=== PATIENT | male | born 1965 | race Two or more races ===

== ENCOUNTER 2020-05-04 07:35 | Outpatient (REF) | payer OTHER, SELFPAY ==
--- NOTE | 2020-05-04 08:11 | XR_ITS ---
EXAMINATION: XR shoulder LT min 2V, XR shoulder RT min 2V CLINICAL INFORMATION: Bilateral shoulder pain. COMPARISON: None. TECHNIQUE: Left shoulder 4 views. Right shoulder 4 views. FINDINGS: LEFT SHOULDER: No bony abnormalities evident. Alignment of the glenohumeral and acromioclavicular joints is normal. No soft tissue calcification. No abnormality is demonstrated in the upper left chest. RIGHT SHOULDER: There are mild degenerative changes at the right acromioclavicular joint. No other abnormality. Glenohumeral alignment is normal. No soft tissue calcification. XR/XR shoulder RT min 2V IMPRESSION: 1. Mild degenerative changes right acromioclavicular joint. Otherwise unremarkable appearance of the right shoulder. 2. Unremarkable examination of the left shoulder.
--- NOTE | 2020-05-04 08:11 | XR_ITS ---
EXAMINATION: XR shoulder LT min 2V, XR shoulder RT min 2V CLINICAL INFORMATION: Bilateral shoulder pain. COMPARISON: None. TECHNIQUE: Left shoulder 4 views. Right shoulder 4 views. FINDINGS: LEFT SHOULDER: No bony abnormalities evident. Alignment of the glenohumeral and acromioclavicular joints is normal. No soft tissue calcification. No abnormality is demonstrated in the upper left chest. RIGHT SHOULDER: There are mild degenerative changes at the right acromioclavicular joint. No other abnormality. Glenohumeral alignment is normal. No soft tissue calcification. XR/XR shoulder LT min 2V IMPRESSION: 1. Mild degenerative changes right acromioclavicular joint. Otherwise unremarkable appearance of the right shoulder. 2. Unremarkable examination of the left shoulder.
[2020-05-04 08:56] LABS: Alanine Aminotransferase 21 U/L (0-40); Albumin Level 4.4 g/dL (3.5-5.0); Alkaline Phosphatase 68 U/L (39-117); Anion Gap 12 (12-20); Aspartate Amino Transferase 20 U/L (5-37); Bilirubin Total 0.6 mg/dL (0.0-1.0); Blood Urea Nitrogen 14 mg/dL (9-16); Calcium 9.2 mg/dL (8.4-10.2); Carbon Dioxide 28 mmol/L (22-29); Chloride 102 mmol/L (96-108); Cholesterol 254 mg/dL; Estimated Glomerular Filt Rate > 60; Glucose Fasting 94 mg/dL (60-99); HDL Cholesterol 51 mg/dL; LDL Cholesterol Calculated 178 mg/dl; Potassium 4.7 mmol/l (3.3-5.1); Sodium 137 mmol/L (135-145); Triglycerides 127 mg/dL
[2020-05-08 14:38] LABS: Vitamin D 25-OH, D2 <4 ng/mL; Vitamin D 25-OH, D3 16 ng/mL; Vitamin D 25-OH, Total 16 ng/mL (30-100)
== END 2020-05-04 07:36 | disposition home or self-care (01) ==
LOC: HO.LAB 07:35
PROVIDERS: PCP Internal Medicine; Visit Provider Internal Medicine
DX: E55.9 Vitamin D deficiency, unspecified (principal); E78.00 Pure hypercholesterolemia, unspecified; M25.512 Pain in left shoulder; M25.511 Pain in right shoulder
CPT/HCPCS: 73030; 80053; 80061; 82306

== ENCOUNTER 2022-09-16 02:36 | Emergency (ER) | payer OTHER, SELFPAY ==
--- NOTE | ~2022-09-16 | XR_ITS ---
EXAMINATION: XR HIP, RIGHT CLINICAL INFORMATION: Tenderness to palpation right anterior hip COMPARISON: 01/03/2016 TECHNIQUE: Two views of the right hip. FINDINGS: Osseous alignment is anatomic. There is mild to moderate joint space narrowing at the right hip. Osteophyte formation noted along the lateral acetabulum. No acute fracture is seen. Enthesophytes are present at the greater trochanter of the femur. XR/XR hip RT min 2V IMPRESSION: No acute findings identified. Chronic appearing/degenerative changes as noted above.
[2022-09-16 02:44] VITALS: BP 132/90; BP 136/82; PULSE 79; PULSE 92; RESP 18; TEMP 37; O2SAT 97; O2SAT 99; BMI 26.9
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
[2022-09-16] MEDS: Ketorolac Tromethamine 15 MG/ML VIAL IM (04:57)
[2022-09-16 05:04] VITALS: BP 126/73; PULSE 70; RESP 24; TEMP 36.8; O2SAT 96
--- NOTE | 2022-09-16 05:05 | PC.NURSE ---
this rn attempted to medicate pt according to cristian. pt refused tylenol and ibuprofen stating it will not help 03/09 pain. pt requested injection this rn made dr ulloa aware of pt refusal of medication and request for injection pt medicated according to cristian
--- NOTE | 2022-09-16 05:06 | PC.NURSE ---
this rn utilized blindstitch lapel padder for discharge. pt utilized wheelchair at discharge. skin pwd. vss. pt son at bedside for discharge. pt provided with discharge packet. pt verbalized understanding discharge plan
== END 2022-09-16 05:08 | disposition home or self-care (01) ==
PROVIDERS: Emergency Provider Student in an Organized Health Care Education/Training Program; PCP Internal Medicine
DX: M25.551 Pain in right hip (principal); Z79.899 Other long term (current) drug therapy
CPT/HCPCS: 73502; 96372; 99284; J1885

== ENCOUNTER 2022-11-06 07:53 | Outpatient (REF) | payer OTHER, SELFPAY ==
[2022-11-06 08:19] LABS: MANUAL DIFF FLAG NO
[2022-11-06 08:47] LABS: Basophils Percent Auto 0.5 % (0-2); Eosinophils Absolute Auto 0.2 X10*3/uL (0.0-0.4); Eosinophils Percent Auto 2.8 % (0-4); Hematocrit 43.8 % (42.0-52.0); Hemoglobin 14.5 g/dl (14.0-18.0); Imm Gran Abs Auto 0.01 X10*3/uL (0.00-0.03); Imm Gran Pct Auto 0.2 % (0.0-0.4); Lymphocytes Absolute Auto 2.8 X10*3/uL (1.2-4.9); Lymphocytes Percent Auto 44.7 % (20-40); Mean Corpuscular HGB Conc 33.1 g/dl (31.0-36.0); Mean Corpuscular Hemoglobin 30.1 pg (27.0-33.0); Mean Corpuscular Volume 91.1 fL (80.0-98.0); Mean Platelet Volume 11.1 fL (9.4-12.4); Monocytes Absolute Auto 0.5 X10*3/uL (0.1-1.2); Monocytes Percent Auto 8.6 % (2-11); Neutrophils Absolute Auto 2.7 x10*3/uL (2.0-8.3); Neutrophils Percent Auto 43.2 % (45-73); Platelet Count 261 X10*3/uL (160-400); Red Blood Count 4.81 X10*6/uL (4.60-5.80); Red Cell Distribution Width 12.9 % (11.0-16.0); White Blood Count 6.2 X10*3/uL (4.8-10.8)
[2022-11-06 09:24] LABS: Alanine Aminotransferase 29 U/L (0-40); Albumin Level 4.4 g/dL (3.5-5.0); Alkaline Phosphatase 74 U/L (39-117); Anion Gap 14 (12-20); Aspartate Amino Transferase 21 U/L (5-37); Bilirubin Total 0.6 mg/dL (0.0-1.0); Blood Urea Nitrogen 12 mg/dL (9-16); Calcium 10.2 mg/dL (8.4-10.2); Carbon Dioxide 30 mmol/L (22-29); Chloride 102 mmol/L (96-108); Cholesterol 286 mg/dL; Estimated Glomerular Filt Rate > 60; Glucose Fasting 98 mg/dL (60-99); HDL Cholesterol 64 mg/dL; LDL Cholesterol Calculated 188 mg/dl; Potassium 5.4 mmol/L (3.3-5.1); Sodium 141 mmol/L (135-145); Total Protein 7.3 g/dL (6.5-8.0); Triglycerides 173 mg/dL
[2022-11-06 09:58] LABS: Folate 18.3 ng/mL (> or = 4.0); Prostate Specific Antigen 3.86 ng/mL (<0.05-4.0); TSH reflex Free T4 2.65 uIU/mL (0.32-4.0); Vitamin B12 908 pg/mL (200-900); Vitamin D 25-OH Total 39.4 ng/mL (>30)
== END 2022-11-06 07:54 | disposition home or self-care (01) ==
LOC: HO.LAB 07:53
PROVIDERS: PCP Nurse Practitioner Family; Visit Provider Nurse Practitioner Family
DX: E78.00 Pure hypercholesterolemia, unspecified (principal); F41.8 Other specified anxiety disorders; Z12.5 Encounter for screening for malignant neoplasm of prostate
CPT/HCPCS: 36415; 80053; 80061; 82306; 82607; 82746; 84153; 84443; 85025

== ENCOUNTER 2023-06-15 12:56 | Outpatient (REF) | payer OTHER, SELFPAY ==
[2023-06-15 13:47] LABS: Amphetamine Screen Urine Not Detected (Not Detect); Barbiturates, Urine Not Detected (Not Detect); Benzodiazepines Screen Urine Not Detected (Not Detect); Cannabinoid Screen Urine Not Detected (Not Detect); Cocaine Screen Urine Not Detected (Not Detect); Fentanyl, urine Not Detected (Not Detect); Opiate Screen Urine Not Detected (Not Detect); Phencyclidine Screen Urine Not Detected (Not Detect)
== END 2023-06-15 12:57 | disposition home or self-care (01) ==
LOC: HO.LAB 12:56
PROVIDERS: PCP Internal Medicine; Visit Provider Internal Medicine
DX: Z02.83 Encounter for blood-alcohol and blood-drug test (principal)
CPT/HCPCS: 80307

== ENCOUNTER 2023-07-07 12:29 | Outpatient (AMB) | payer OTHER, SELFPAY ==
[2023-07-07 12:34] VITALS: BP 116/70; PULSE 81; TEMP 37.1; O2SAT 98; BMI 24.6
--- NOTE | 2023-07-07 12:34 | AM.OFFWIN_ITS ---
Intake Vital Signs 07/07/23 12:34 Height 5 ft 7 in Weight 157 lb BMI 24.6 BP 116/70 Blood Pressure Location Lt brachial Position Sitting Pulse 81 Pulse Source Pulse Oximeter Temp 98.8 F Temp Source Temporal Artery Scan Pulse Oximetry (%) 98 Oxygen Delivery Method Room Air Intake Visit Reasons: EST/abdominal pain (lobby) Intake Note: pt is here today for abd pain started 3 days ago Patient Tobacco Use Status: Never used Tobacco Allergies atorvastatin [ATORVASTATIN] Allergy (Intermediate, Verified 07/07/23 12:34) HIVES, rash, hives Do you need a note to return to daycare/school/sports/work: No HPI HPI Comments History of Present Illness Details Patient is a 57yo M with hx of constipation who presents for abdominal pain/rectal bleeding 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 He has had intermittent abdominal pain for a few months Last colonoscopy clean but thinks hes due (usually q5 years per pt) States constant 10/10 abdominal pain x 3 days No fever or chills Sharp lower abdomen Some rectal pain and rectal bleeding without black stool States last BM this morning and painful, unsure about hemorrhoids States usually has BM every 2-3 days No nausea or vomiting Denies CP or SOB No medicine tried for symptoms Some urine hesitancy without dysuria or frequency PFSH Medical History Hypovitaminosis D Left shoulder pain Pure hypercholesterolemia Rash and nonspecific skin eruption Right shoulder pain Urticaria Surgical History No pertinent past surgical history Family History Father Prostate cancer Mother FH: uterine cancer Maternal Grandmother Cancer Maternal Grandfather Cancer Paternal Grandmother Cancer Paternal Grandfather Cancer Social History Housing: House Alcohol intake: never Patient Tobacco Use Status: Never used Tobacco e-Cigarette/Vaping Use: Never Used Second Hand Smoke Exposure: No service: No Current occupational status: employed Cognitive needs: No Hearing needs: No Vision needs: No Review of Systems Const Denies body aches, Denies chills and Denies fever(s) Card Denies chest pain and Denies dyspnea Resp Denies cough and Denies dyspnea GI Reports abdominal pain, Denies melena, Reports hematochezia, Reports constipation, Denies diarrhea, Denies nausea and Denies vomiting Denies dysuria, Denies urinary frequency and Reports urinary hesitancy Physical Exam Vital Signs: Last Vital Signs Temp 98.8 F 07/07/23 12:34 Pulse 81 07/07/23 12:34 BP 116/70 07/07/23 12:34 Pulse Ox 98 07/07/23 12:34 Oxygen Delivery Method Room Air 07/07/23 12:34 BMI result Body Mass Index 24.6 General: Non-toxic, NAD. Speaking full sentences. Skin: Warm dry throughout. No abdominal striae or ecchymosis Eye: EOMI Respiratory: CTA bilaterally. No wheezes, rales or rhonchi Cardiac: RRR. No murmur Abdominal: BS present x 4. + diffuse periumbillical/ lower abdominal tenderness to palpation (R>L). No guarding. No pusatile mass noted. MSK: Full ROM extremities. Neurology: A/O. No aphasia or facial droop. Gait without abnormality Psych: Good mood and affect Assessment & Plan Assessment & Plan (1) Abdominal pain: Code(s): R10.9 - Unspecified abdominal pain Qualifiers: Abdominal location: periumbilical Qualified Code(s): R10.33 - Periumbilical pain Plan: Pt seen and evaluated Vitals stable + 10/10 abdominal pain Offered urinalysis but concern for 3 days of 10/10 pain and need for imaging Expect given to ED [place] He is driving and feels comfortable enough going down; there was no guarding on examination All questions answered with railroad police officer Coding Level of Care Code Est Pt Level 4 (83576) Diagnoses Periumbilical abdominal pain R10.33 Abdominal location: periumbilical
== END 2023-07-07 13:09 | disposition home or self-care (01) ==
PROVIDERS: PCP Internal Medicine; Visit Provider Physician Assistant
DX: R10.33 Periumbilical pain (principal)
CPT/HCPCS: 99214

== ENCOUNTER 2023-07-07 13:30 | Emergency (ER) | payer OTHER, SELFPAY ==
--- NOTE | ~2023-07-07 | CT_ITS ---
EXAMINATION: CT ABDOMEN AND PELVIS WITHOUT CONTRAST CLINICAL INFORMATION: Bright read blood per rectum COMPARISON: 01/03/2016 TECHNIQUE: Multidetector volumetric imaging was performed from the superior aspect of the liver through the pubic symphysis. Sagittal and coronal reformatted images were obtained on the technologist's workstation. This CT examination was performed using dose optimization techniques as appropriate, variously including the following: *Automated exposure control *Adjustment of mA and/or kV according to patient size (this includes techniques or standardized protocols for targeted exams where dose is matched to indication/reason for exam; i.e. extremities or head) *Use of iterative reconstruction technique DLP: 388 mGy-cm FINDINGS: LUNG BASES: The visualized lung bases are unremarkable. LIVER, GALLBLADDER, AND BILIARY TREE: The liver is normal in size, shape, and attenuation. Stable subcapsular cyst in hepatic segment 7 posteriorly there are no suspicious liver lesion or biliary ductal dilatation is present. The gallbladder is unremarkable with no evidence of radiopaque gallstones, gallbladder wall thickening, or obvious pericholecystic inflammatory changes. PANCREAS: Unremarkable. SPLEEN: Unremarkable. ADRENAL GLANDS: Unremarkable. KIDNEYS AND URETERS: The kidneys are normal in size, shape, and attenuation. No hydronephrosis, hydroureter, or calculi seen. No perinephric stranding. BLADDER: Unremarkable. GASTROINTESTINAL TRACT: There is focal/short segment near circumferential wall thickening of the mid sigmoid colon with mild pericolic fat stranding and adjacent prominent sigmoid mesocolic lymph nodes measuring up to 9 mm. Remainder of the colon is unremarkable. Normal appendix. Stomach and small bowel unremarkable. ABDOMINAL WALL: No significant hernia is appreciated. LYMPH NODES: Mildly enlarged sigmoid mesocolic lymph nodes as described. Some of these lymph nodes show intrinsic hyperdensity suggestive of fine calcification. There is a 6 mm left para-aortic lymph node which also appears mildly hyperdense. VASCULAR: Unremarkable. PELVIC VISCERA: Mild prostatomegaly. Seminal vesicles unremarkable. OSSEOUS STRUCTURES: Unremarkable. CT/CT abdomen pelvis wo IV con IMPRESSION: * Focal/short segment near circumferential wall thickening of the mid sigmoid colon with mild pericolic fat stranding and adjacent prominent sigmoid mesocolic lymph nodes. Focal colitis could have this appearance, however malignancy is the diagnosis of exclusion in this case. Recommend colonoscopy for further evaluation. * There are a few mildly enlarged sigmoid mesocolic lymph nodes and a prominent left para-aortic lymph node which appear mildly hyperdense suggesting a degree of calcification. [place] calcification in metastatic lymph nodes from a malignancy is rare in the absence of treatment, however has been reported. Dystrophic calcification in the setting of a granulomatous disease is also possible. Fleischner guidelines were followed.
[2023-07-07 14:15] VITALS: BP 105/65; PULSE 79; RESP 18; TEMP 36.6; O2SAT 96; BMI 24.6
--- NOTE | 2023-07-07 14:20 | ED.GENADULT ---
HPI - General Adult General Chief complaint: Abdominal Pain Stated complaint: Abd pain Time Seen by Provider: 07/07/23 20:02 Source: patient and motor vehicle parts interpreter Mode of arrival: ambulatory History of Present Illness HPI narrative: This is a 57-year-old male who presents with worsening lower abdominal pain over the past month, he reports that it worsens with bowel movements and denies any associated nausea/vomiting/fevers/chills but it has been associated with unexplained weight loss and he reports he had a colonoscopy 5 years ago here within the [facility] system. Patient reports decreased appetite and has a significant family medical history father who from colon CA. Related Data Previous Rx's Medication Instructions Recorded oxycodone 5 mg capsule 5 mg PO Q8H PRN pain (scale score 07/07/23 7-10) #10 caps Allergies Allergy/AdvReac Type Severity Reaction Status Date / Time atorvastatin [ATORVASTATIN] Allergy Intermediate HIVES, Verified 07/07/23 12:34 rash, hives Review of Systems Review of Systems: Pertinent positives and negatives as stated in HPI [facility] Past Medical History Source: nursing notes reviewed Medical History Hypovitaminosis D Rash and nonspecific skin eruption Pure hypercholesterolemia Right shoulder pain Left shoulder pain Urticaria Surgical History No pertinent past surgical history Family History Family History Father Prostate cancer Mother FH: uterine cancer Maternal Grandmother Cancer Maternal Grandfather Cancer Paternal Grandmother Cancer Paternal Grandfather Cancer Social History Social History Housing: House Alcohol intake: never Patient Tobacco Use Status: Never used Tobacco e-Cigarette/Vaping Use: Never Used Second Hand Smoke Exposure: No Advance Directives: No Advance Directives Information Provided: No service: No Current occupational status: employed Cognitive needs: No Hearing needs: No Vision needs: No Physical Exam ED Vital Signs: Vital Signs - 24 hr 07/07/23 14:15 07/07/23 20:01 Temperature 98 F 98.1 F Pulse Rate 79 72 Respiratory Rate 18 18 Blood Pressure 105/65 126/78 Pulse Oximetry 96 96 Oxygen Delivery Method Room Air Room Air BMI result Body Mass Index 24.6 VITAL SIGNS: Reviewed. GENERAL: Well developed, well nourished, in no acute distress. HEAD: Normocephalic/atraumatic EYES: PERRLA, EOMI EARS: Ext canals without abnormality NOSE: Nares patent bilateral OROPHARYNX: no oral lesions noted, posterior pharynx clear NECK: Supple, no adenopathy LUNGS: Normal breath sounds. No adventitious sounds or accessory muscle use. SpO2<96> CARDIOVASCULAR: Regular rate and rhythm without noted murmurs ABDOMEN: Soft, lower abdominal discomfort on palpation but no rebound, non-distended with bowel sounds. MUSCULOSKELETAL: No tenderness, deformities, or effusions noted on gross inspection. EXTREMITIES: No cyanosis, clubbing or edema. SKIN: Inspection of the skin reveals no rashes NEUROLOGIC: Alert and oriented x 4. Strength and sensation to light touch were grossly intact x 4. Course Course Course Narrative: RME:?57 yo male hx of depression, hyperkalemia, insomnia here with Lower abd pain, cramping with bm. now noticing bright red blood in toilet bowl with BM. Denies constipation, diarrhea, N.V. Difficulty urinating, small amounts x1 mo. labs, UA, CT ordered Full HPI, ROS and PE to be performed by the primary ED provider. Medical Decision Making Medical Decision Making [facility] Narrative: 57-year-old male with history and clinical presentation, DDX: Renal colic, UTI, diverticulitis, constipation I reviewed all investigations and hematologic indices are negative for leukocytosis/left shift/anemia/thrombocytopenia. Chemistry indices negative for CLAUDETTE/electrolyte or liver enzyme derangements. Urinalysis negative for UTI or hematuria. CT scan findings significant for a focal/short segment almost entirely circumferential wall thickening of the mid sigmoid colon with mild pericolic fat stranding and prominent mesocolic lymph nodes. In my interpretation given the fact that patient is afebrile and has no leukocytosis that is is not consistent with a colitis. CT scan also identifies additional left para-aortic lymph node. All findings to include the CT scan were discussed with the patient at bedside with a diplomatic interpreter. He was reassured that my note will be copied over to his primary care doctor and referrals to follow-up with both Gastroenterology as well as General surgery and he was strongly encouraged to call the offices 1st thing in the morning. I was unable to find any documentation regarding patient's colonoscopy. Differential Diagnosis Differential Diagnoses: The differential diagnosis associated with the presentation includes Please see the discussion above Admission/Observation Consideration of admission/observation: Escalation of care including admission/observation considered Please see the discussion above Lab Data MDM Lab Attestation statement: I reviewed the patient's lab results. Please see the discussion above 07/07/23 16:11 07/07/23 16:11 Labs: Lab Results 07/07/23 Range/Units 16:11 WBC 6.1 (4.8-10.8) X10*3/uL RBC 4.88 (4.60-5.80) X10*6/uL Hgb 14.7 (14.0-18.0) g/dl Hct 44.2 (42.0-52.0) % MCV 90.6 (80.0-98.0) fL MCH 30.1 (27.0-33.0) pg MCHC 33.3 (31.0-36.0) g/dl RDW 12.8 (11.0-16.0) % Plt Count 253 (160-400) X10*3/uL MPV 10.4 (9.4-12.4) fL Immature Gran % (Auto) 0.2 (0.0-0.4) % Neut % (Auto) 57.6 (45-73) % Lymph % (Auto) 33.9 (20-40) % [place] % (Auto) 6.5 (2-11) % Eos % (Auto) 1.3 (0-4) % Baso % (Auto) 0.5 (0-2) % Lymph # (Auto) 2.1 (1.2-4.9) X10*3/uL [place] # (Auto) 0.4 (0.1-1.2) X10*3/uL Eos # (Auto) 0.1 (0.0-0.4) X10*3/uL Baso # (Auto) 0.0 (0.0-0.2) X10*3/uL Abs Immat Gran (auto) 0.01 (0.00-0.03) X10*3/uL Absolute Neuts (auto) 3.5 (2.0-8.3) x10*3/uL Absolute Nucleated RBC 0.000 (0.0-0.012) X10*3/uL Nucleated RBC % (auto) 0.0 (0.0-0.2) /100WBC Sodium 142 (135-145) mmol/L Potassium 4.1 (3.3-5.1) mmol/L Chloride 104 (96-108) mmol/L Carbon Dioxide 31 H (22-29) mmol/L Anion Gap 11 L (12-20) BUN 13 (9-16) mg/dL Creatinine 0.79 (0.5-1.4) mg/dL Estim Creat Clear Calc 95.2 Estimated GFR > 60 Random Glucose 78 (60-115) mg/dL Calcium 9.6 (8.4-10.2) mg/dL Magnesium 2.0 (1.6-2.6) mg/dL Total Bilirubin 0.5 (0.0-1.0) mg/dL AST 17 (5-37) U/L ALT 19 (0-40) U/L Alkaline Phosphatase 71 (39-117) U/L Total Protein 7.7 (6.5-8.0) g/dL Albumin 4.3 (3.5-5.0) g/dL Lipase 23 (8-78) U/L Urine Color Yellow Urine Appearance Clear Urine pH 7.0 (5.0-9.0) Ur Specific [place] 1.025 (1.005-1.025) Urine Protein Negative (Neg-Trace) mg/dL Urine Glucose (UA) Negative (Negative) mg/dL Urine Ketones Trace (Negative) mg/dL Urine Blood Negative (Negative) Urine Nitrite Negative (Negative) Ur Leukocyte Esterase Negative (Negative) Radiology Impression Discussion of test interpretation with radiology: I have reviewed the radiologist's reading. Radiologist Impression: Please see the discussion above External Record Review External record reviewed: Outpatient record, Prior outpatient labs and Prior outpatient radiology Critical Care Time Critical Care Time Critical Care Time: Yes Total Critical Care Time: 45 Attestation: I personally attest to this time spent taking care of the patient. Discharge Plan Discharge Clinical Impression: Abnormal CT scan, sigmoid colon, Abdominal pain Patient Disposition: Home, Self-Care Instructions: Abdominal Pain (ED) Additional Instructions: 1. Reanudar todos los medicamentos caseros seg?n lo recetado. 2. Deber? comenzar a usar MiraLax de venta enid a diario para asegurarse de seguir teniendo heces blandas para ayudar a reducir el dolor al defecar. 3. Te dejar? en casa con algunos medicamentos para el dolor. 4. Es imperativo que llame a las oficinas que se enumeran a continuaci?n para obtener m?s referencias que necesitar? para damian reevaluaci?n y un mayor manejo ambulatorio. No dude en regresar a la geronimo de emergencias si los s?ntomas empeoran. 1. Resume all home medications as prescribed. 2. You will need to start using [id number] MiraLax daily to make sure you continue to have soft stools to help reduce pain on pooping. 3. I am sitting you home with some medication for the pain. 4. It is imperative that you call the offices listed below further referrals that you will need for re-evaluation and further outpatient management. Do not hesitate to return to the emergency room for any worsening symptoms. Prescriptions: New oxycodone 5 mg capsule 5 mg PO Q8H PRN (Reason: pain (scale score 7-10)) Qty: 10 0RF Rx Instructions: Partial Fill upon patient request. Referrals: Kalyan Becerra MD [Physician] - Clem Herndon MD [Physician] - Lauren Segundo MD [Primary Care Provider] - Print Language: Ukrainian
[2023-07-07 16:18] LABS: MANUAL DIFF FLAG NO
[2023-07-07 16:22] LABS: Appearance Urine Clear; Basophils Percent Auto 0.5 % (0-2); Color Urine Yellow; Eosinophils Absolute Auto 0.1 X10*3/uL (0.0-0.4); Eosinophils Percent Auto 1.3 % (0-4); Glucose Urine UA Negative (Negative); Hematocrit 44.2 % (42.0-52.0); Hemoglobin 14.7 g/dl (14.0-18.0); Imm Gran Abs Auto 0.01 X10*3/uL (0.00-0.03); Imm Gran Pct Auto 0.2 % (0.0-0.4); Leukocyte Esterase Urine Negative (Negative); Lymphocytes Absolute Auto 2.1 X10*3/uL (1.2-4.9); Lymphocytes Percent Auto 33.9 % (20-40); Mean Corpuscular HGB Conc 33.3 g/dl (31.0-36.0); Mean Corpuscular Hemoglobin 30.1 pg (27.0-33.0); Mean Corpuscular Volume 90.6 fL (80.0-98.0); Mean Platelet Volume 10.4 fL (9.4-12.4); Monocytes Absolute Auto 0.4 X10*3/uL (0.1-1.2); Monocytes Percent Auto 6.5 % (2-11); Neutrophils Absolute Auto 3.5 x10*3/uL (2.0-8.3); Neutrophils Percent Auto 57.6 % (45-73); Nitrite Urine Negative (Negative); Platelet Count 253 X10*3/uL (160-400); Red Blood Count 4.88 X10*6/uL (4.60-5.80); Red Cell Distribution Width 12.8 % (11.0-16.0); Specific Gravity - Urine 1.025 (1.005-1.025); Urine Blood Negative (Negative); Urine Ketones Trace mg/dL (Negative); Urine Protein Negative (Neg-Trace); White Blood Count 6.1 X10*3/uL (4.8-10.8)
[2023-07-07 16:36] LABS: Alanine Aminotransferase 19 U/L (0-40); Albumin Level 4.3 g/dL (3.5-5.0); Alkaline Phosphatase 71 U/L (39-117); Anion Gap 11 (12-20); Aspartate Amino Transferase 17 U/L (5-37); Bilirubin Total 0.5 mg/dL (0.0-1.0); Blood Urea Nitrogen 13 mg/dL (9-16); Calcium 9.6 mg/dL (8.4-10.2); Carbon Dioxide 31 mmol/L (22-29); Chloride 104 mmol/L (96-108); Creatinine Clr Calc Pharmacy 95.2; Estimated Glomerular Filt Rate > 60; Glucose Random 78 mg/dL (60-115); Lipase 23 U/L (8-78); Potassium 4.1 mmol/L (3.3-5.1); Sodium 142 mmol/L (135-145); Total Protein 7.7 g/dL (6.5-8.0)
[2023-07-07 20:01] VITALS: BP 126/78; PULSE 72; RESP 18; TEMP 36.7; O2SAT 96
[2023-07-07] MEDS: oxyCODONE HCl Immed Release 5 MG TABLET PO (21:48)
== END 2023-07-07 21:51 | disposition home or self-care (01) ==
PROVIDERS: Physician Assistant Medical; Emergency Provider Student in an Organized Health Care Education/Training Program; PCP Internal Medicine
DX: R10.30 Lower abdominal pain, unspecified (principal); R93.5 Abnormal findings on diagnostic imaging of other abdominal regions, including retroperitoneum; R59.9 Enlarged lymph nodes, unspecified
CPT/HCPCS: 36415; 74176; 80053; 81003; 83690; 83735; 85025; 99284

== ENCOUNTER 2023-07-20 22:32 | Emergency (ER) | payer OTHER, SELFPAY ==
--- NOTE | ~2023-07-20 | CT_ITS ---
EXAMINATION: CT ABDOMEN AND PELVIS WITHOUT CONTRAST CLINICAL INFORMATION: Pain. COMPARISON: 07/07/2023 TECHNIQUE: Multidetector volumetric imaging was performed from the superior aspect of the liver through the pubic symphysis. Sagittal and coronal reformatted images were obtained on the technologist's workstation. This CT examination was performed using dose optimization techniques as appropriate, variously including the following: *Automated exposure control *Adjustment of mA and/or kV according to patient size (this includes techniques or standardized protocols for targeted exams where dose is matched to indication/reason for exam; i.e. extremities or head) *Use of iterative reconstruction technique DLP: 436 mGy-cm FINDINGS: LUNG BASES: The visualized lung bases are unremarkable. LIVER, GALLBLADDER, AND BILIARY TREE: The liver is normal in size, shape, and attenuation. No focal hepatic lesion or biliary ductal dilatation is present. The gallbladder is unremarkable with no evidence of radiopaque gallstones, gallbladder wall thickening, or obvious pericholecystic inflammatory changes. PANCREAS: Unremarkable. SPLEEN: Unremarkable. ADRENAL GLANDS: Unremarkable. KIDNEYS AND URETERS: The kidneys are normal in size, shape, and attenuation. No hydronephrosis, hydroureter, or calculi seen. No perinephric stranding. BLADDER: Unremarkable. GASTROINTESTINAL TRACT: There is thickening and mild infiltrative change along a segment of proximal sigmoid colon. There are a few adjacent lymph nodes measuring up to 8 mm. ABDOMINAL WALL: No significant hernia is appreciated. LYMPH NODES: Normal. VASCULAR: Unremarkable. PELVIC VISCERA: The prostate gland is enlarged measuring 5 x 4 x 5.7 cm. OSSEOUS STRUCTURES: There is diffuse thoracolumbar disc degenerative change. CT/CT abdomen pelvis wo IV con IMPRESSION: There is thickening and mild infiltrative change along a segment of proximal sigmoid colon. There are a few adjacent lymph nodes measuring up to 8 mm. This could reflect diverticulitis. Neoplasm not excluded. Colonoscopy recommended to exclude neoplasm. Enlarged prostate gland. Fleischner guidelines were followed.
[2023-07-20 22:37] VITALS: BP 122/69; PULSE 79; RESP 18; TEMP 36.9; O2SAT 98; BMI 25.1
[2023-07-20 22:54] LABS: MANUAL DIFF FLAG NO
[2023-07-20 22:55] LABS: Basophils Percent Auto 0.5 % (0-2); Eosinophils Absolute Auto 0.2 X10*3/uL (0.0-0.4); Eosinophils Percent Auto 2.5 % (0-4); Hematocrit 39.9 % (42.0-52.0); Hemoglobin 13.4 g/dl (14.0-18.0); Imm Gran Abs Auto 0.01 X10*3/uL (0.00-0.03); Imm Gran Pct Auto 0.2 % (0.0-0.4); Lymphocytes Absolute Auto 2.9 X10*3/uL (1.2-4.9); Lymphocytes Percent Auto 49.2 % (20-40); Mean Corpuscular HGB Conc 33.6 g/dl (31.0-36.0); Mean Corpuscular Hemoglobin 30.7 pg (27.0-33.0); Mean Corpuscular Volume 91.3 fL (80.0-98.0); Mean Platelet Volume 10.3 fL (9.4-12.4); Monocytes Absolute Auto 0.5 X10*3/uL (0.1-1.2); Monocytes Percent Auto 8.7 % (2-11); Neutrophils Absolute Auto 2.3 x10*3/uL (2.0-8.3); Neutrophils Percent Auto 38.9 % (45-73); Platelet Count 255 X10*3/uL (160-400); Red Blood Count 4.37 X10*6/uL (4.60-5.80); Red Cell Distribution Width 12.9 % (11.0-16.0); White Blood Count 5.9 X10*3/uL (4.8-10.8)
[2023-07-20 22:56] LABS: Appearance Urine Clear; Color Urine Yellow; Glucose Urine UA Negative (Negative); Leukocyte Esterase Urine Negative (Negative); Nitrite Urine Negative (Negative); Specific Gravity - Urine 1.025 (1.005-1.025); UMIC TRIGGER UACC YES; Urine Blood Trace (Negative); Urine Ketones Trace mg/dL (Negative); Urine Protein Negative (Neg-Trace)
[2023-07-20 22:58] LABS: Bacteria Urine None Seen (None Seen); Hyaline Casts Urine 0-2 /LPF (0-2); Squamous Epithelial Cell Urine 0-2 /HPF (0-2); WBC Urine 0-5 /HPF (0-5)
[2023-07-20 23:09] LABS: Alanine Aminotransferase 16 U/L (0-40); Albumin Level 4.1 g/dL (3.5-5.0); Alkaline Phosphatase 64 U/L (39-117); Anion Gap 13 (12-20); Aspartate Amino Transferase 22 U/L (5-37); Bilirubin Total 0.3 mg/dL (0.0-1.0); Blood Urea Nitrogen 17 mg/dL (9-16); Calcium 8.9 mg/dL (8.4-10.2); Carbon Dioxide 28 mmol/L (22-29); Chloride 106 mmol/L (96-108); Creatinine Clr Calc Pharmacy 83.6; Estimated Glomerular Filt Rate > 60; Glucose Random 147 mg/dL (60-115); Lipase 25 U/L (8-78); Sodium 143 mmol/L (135-145)
[2023-07-21 03:27] VITALS: BP 106/62; PULSE 65; RESP 18; TEMP 36.9; O2SAT 96
[2023-07-21 05:52] LABS: OBS Int Ctl Valid YES; OBS1 NEGATIVE (NEGATIVE)
--- NOTE | 2023-07-21 06:17 | ED_ITS ---
HPI - Abdominal Pain General Chief Complaint: Abdominal Pain Stated Complaint: lwr abd pain Time Seen by Provider: 07/21/23 05:02 Source: patient and doubler helper Mode of arrival: ambulatory Limitations: no limitations History of Present Illness HPI narrative: 57-year-old male came in for evaluation of lower abdominal pain for the past 2 weeks, pain is mostly in the suprapubic area, feel like dull aching pain when pain gets so severe patient have urge for bowel movement and see blood in the bowel, no testicular pain, no dysuria, no frequency urination, no fever, no chills, no nausea, no vomiting. No history of intra-abdominal surgery. Related Data Previous Rx's Medication Instructions Recorded oxycodone 5 mg capsule 5 mg PO Q8H PRN pain (scale score 07/07/23 7-10) #10 caps amoxicillin 875 mg-potassium 1 tab PO BID #14 tabs 07/21/23 clavulanate 125 mg tablet Allergies Allergy/AdvReac Type Severity Reaction Status Date / Time atorvastatin [ATORVASTATIN] Allergy Intermediate HIVES, Verified 07/07/23 12:34 rash, hives Review of Systems Review of Systems All other systems are reviewed and are negative Constitutional: Reports as per HPI and Reports no additional constitutional complaints Eyes: Reports as per HPI and Reports no additional eye complaints Reports system reviewed and no additional complaints, except as documented Cardiovascular: Reports as per HPI and Reports no additional cardiovascular complaints Respiratory: Reports as per HPI and Reports no additional respiratory complaints Gastrointestinal: Reports as per HPI and Reports no additional gastrointestinal complaints Genitourinary: Reports no additional female genitourinary complaints Musculoskeletal: Reports no additional musculoskeletal complaints Skin/Breast: Reports system reviewed and no additional complaints, except as docu Psychiatric: Reports no additional psychiatric complaints Endocrine: Reports no additional endocrine complaints Hematologic/Lymphatic: Reports no additional hematologic/lymphatic complaints Allergic/Immunologic: Reports no additional allergic/immunologic complaints Reports system reviewed and no additional complaints, except as documented and Reports Abnormal speech present [facility] Past Medical History Medical History Hypovitaminosis D Rash and nonspecific skin eruption Pure hypercholesterolemia Right shoulder pain Left shoulder pain Urticaria Surgical History No pertinent past surgical history Family History Family History Father Prostate cancer Mother FH: uterine cancer Maternal Grandmother Cancer Maternal Grandfather Cancer Paternal Grandmother Cancer Paternal Grandfather Cancer Social History Social History Housing: House Alcohol intake: never Patient Tobacco Use Status: Never used Tobacco e-Cigarette/Vaping Use: Never Used Second Hand Smoke Exposure: No Advance Directives: No Advance Directives Information Provided: No service: No Current occupational status: employed Cognitive needs: No Hearing needs: No Vision needs: No Physical Exam ED Vital Signs: Vital Signs - 24 hr 07/20/23 22:37 07/21/23 03:27 Temperature 98.4 F 98.5 F Pulse Rate 79 65 Respiratory Rate 18 18 Blood Pressure 122/69 106/62 Pulse Oximetry 98 96 Oxygen Delivery Method Room Air Room Air BMI result Body Mass Index 25.1 Vital signs have been reviewed and appear to be correct. Blood pressure elevated. Heart rate normal. Respiratory rate normal. Temperature normal. Oxygen saturation normal. Appearance: Alert. Oriented X3. No acute distress. Head: Normal external exam. Normocephalic. Atraumatic. No [place] signs noted. No raccoon eyes noted Eyes: PERRLA. EOMI. Conjunctiva and sclera normal. Eyelids normal. ENT: TM's Normal. Pharynx normal. Uvula midline. Moist mucous membranes. No trismus noted. No drooling noted. No muffled voice noted. Neck: Normal inspection. Neck supple. FROM. No adenopathy. Thyroid Normal. No meningeal signs. No neck mass noted. CVS: Normal heart rate and rhythm. Heart sound normal. No murmurs noted. Pulses normal throughout. Respiratory: No respiratory distress. Painless inspiration. Breath sounds normal. No wheezes/rales/rhonchi noted. Chest nontender. No accessory muscle usage noted or decreased air movement noted. Abdomen: Soft, suprapubic tenderness, no guarding, no rebound tenderness, Bowel sounds normal in all 4 quadrants. No distention noted. No organomegaly noted. No visible injury noted. exam: Uncircumcised normal inspection, no scrotal tenderness or swelling, intact cremasteric reflex. Rectal exam: Brown stool guaiac negative. Back: No CVA tenderness. Full range of motion noted. Skin: Skin warm and dry. Normal skin color. Normal skin turgor. No rashes/lesions/lacerations noted. Extremities: No lower extremity edema. Extremities exhibit normal range of motion. Extremities nontender. Neuro: Oriented X 3. Cranial nerve exam: II-XII are grossly intact No motor deficit. No sensory deficit. Reflexes normal. Course Reevaluation(s) Reevaluation #1: Intra-abdominal pain for 2 weeks, CT revealing colitis, no blood in the stool, patient otherwise hemodynamically stable. Will start the patient on Augmentin and have the patient follow-up with GI to consider follow-up and colonoscopy. Time: 06:20 Medical Decision Making Differential Diagnosis Differential Diagnoses: The differential diagnosis associated with the presentation includes (Acute colitis, acute diverticulitis, pancreatitis, acute cholecystitis, UTI, electrolyte derangement, severe anemia.) Admission/Observation Consideration of admission/observation: Escalation of care including admission/observation considered Lab Data MDM Lab Attestation statement: I reviewed the patient's lab results. 07/20/23 22:47 07/20/23 22:47 Labs: Lab Results 07/20/23 07/21/23 Range/Units 22:47 05:33 WBC 5.9 (4.8-10.8) X10*3/uL RBC 4.37 L (4.60-5.80) X10*6/uL Hgb 13.4 L (14.0-18.0) g/dl Hct 39.9 L (42.0-52.0) % MCV 91.3 (80.0-98.0) fL MCH 30.7 (27.0-33.0) pg MCHC 33.6 (31.0-36.0) g/dl RDW 12.9 (11.0-16.0) % Plt Count 255 (160-400) X10*3/uL MPV 10.3 (9.4-12.4) fL Immature Gran % (Auto) 0.2 (0.0-0.4) % Neut % (Auto) 38.9 L (45-73) % Lymph % (Auto) 49.2 H (20-40) % Mobile % (Auto) 8.7 (2-11) % Eos % (Auto) 2.5 (0-4) % Baso % (Auto) 0.5 (0-2) % Lymph # (Auto) 2.9 (1.2-4.9) X10*3/uL Mobile # (Auto) 0.5 (0.1-1.2) X10*3/uL Eos # (Auto) 0.2 (0.0-0.4) X10*3/uL Baso # (Auto) 0.0 (0.0-0.2) X10*3/uL Abs Immat Gran (auto) 0.01 (0.00-0.03) X10*3/uL Absolute Neuts (auto) 2.3 (2.0-8.3) x10*3/uL Absolute Nucleated RBC 0.000 (0.0-0.012) X10*3/uL Nucleated RBC % (auto) 0.0 (0.0-0.2) /100WBC Sodium 143 (135-145) mmol/L Potassium 4.0 (3.3-5.1) mmol/L Chloride 106 (96-108) mmol/L Carbon Dioxide 28 (22-29) mmol/L Anion Gap 13 (12-20) BUN 17 H (9-16) mg/dL Creatinine 0.90 (0.5-1.4) mg/dL Estim Creat Clear Calc 83.6 Estimated GFR > 60 Random Glucose 147 H (60-115) mg/dL Calcium 8.9 D (8.4-10.2) mg/dL Total Bilirubin 0.3 (0.0-1.0) mg/dL AST 22 (5-37) U/L ALT 16 (0-40) U/L Alkaline Phosphatase 64 (39-117) U/L Total Protein 7.0 (6.5-8.0) g/dL Albumin 4.1 (3.5-5.0) g/dL Lipase 25 (8-78) U/L Urine Color Yellow Urine Appearance Clear Urine pH 7.0 (5.0-9.0) Ur Specific [place] 1.025 (1.005-1.025) Urine Protein Negative (Neg-Trace) mg/dL Urine Glucose (UA) Negative (Negative) mg/dL Urine Ketones Trace (Negative) mg/dL Urine Blood Trace H (Negative) Urine Nitrite Negative (Negative) Ur Leukocyte Esterase Negative (Negative) Urine RBC 6-10 H (0-2) /HPF Urine WBC 0-5 (0-5) /HPF Ur Squamous Epith Cells 0-2 (0-2) /HPF Urine Bacteria None Seen (None Seen) Hyaline Casts 0-2 (0-2) /LPF Stool Occult Blood NEGATIVE (NEGATIVE) Independent Interpretation I performed an independent interpretation of an: CT Scan (Abdomen pelvis:There is thickening and mild infiltrative change along a segment of proximal sigmoid colon. There are a few adjacent lymph nodes measuring up to 8 mm. This could reflect diverticulitis. Neoplasm not excluded. Colonoscopy recommended to exclude neoplasm. ) Radiology Impression Discussion of test interpretation with radiology: I have reviewed the radiologist's reading. Discharge Plan Discharge Clinical Impression: Diverticulitis Patient Disposition: Home, Self-Care Instructions: Diverticulitis (ED) Prescriptions: New amoxicillin-pot clavulanate 875-125 mg tablet 1 tab PO BID Qty: 14 0RF No Action oxycodone 5 mg capsule 5 mg PO Q8H PRN (Reason: pain (scale score 7-10)) Qty: 10 0RF Rx Instructions: Partial Fill upon patient request. Referrals: Eusebio Fields MD [Physician] - Lauren Segundo MD [Primary Care Provider] -
[2023-07-21 06:45] VITALS: BP 105/57; PULSE 71; RESP 18; TEMP 36.4; O2SAT 97
[2023-07-21] MEDS: Amoxicillin/Potassium Clav 875 MG TABLET PO (06:47)
== END 2023-07-21 07:14 | disposition home or self-care (01) ==
PROVIDERS: Emergency Provider Emergency Medicine; PCP Internal Medicine
DX: K57.32 Diverticulitis of large intestine without perforation or abscess without bleeding (principal); R10.30 Lower abdominal pain, unspecified; E78.00 Pure hypercholesterolemia, unspecified
CPT/HCPCS: 36415; 74176; 80053; 81001; 82272; 83690; 85025; 99284

== ENCOUNTER 2023-07-29 15:53 | Outpatient (AMB) | payer OTHER, SELFPAY ==
[2023-07-29 16:00] VITALS: BP 126/80; BMI 24.9
--- NOTE | 2023-07-29 16:00 | A.OFFPC_ITS ---
Vital Signs 07/29/23 16:00 Height 5 ft 7 in Weight 159 lb BMI 24.9 BP 126/80 Blood Pressure Location Lt brachial Position Sitting Int[place] [facility] [place] Diverticulitis Intake Note: Patient here for [facility] [place]21 Diverticulitis Instrument Specialist Required: No Accompanied by: Self / Same As Patient Allergies atorvastatin [ATORVASTATIN] Allergy (Intermediate, Verified 07/29/23 16:25) HIVES, rash, hives Medication List - Last Reconciled 07/29/23 by Lauren Hansen MD amoxicillin-pot clavulanate 875-125 mg 1 tab PO BID Tobacco use date assessed: 07/29/23 Dental Screening Dental Screen Date: 07/29/23 Did you have a dental visit in the last 12 months?: No Did you have a dental problem in the last 6 months where you did not have access to dental care?: No Was dental information given to patient?: Patient has dentist HPI HPI Comments History of Present Illness Details This is a 57-year-old male with pure hypercholesterolemia that comes today as a hospital discharge follow-up with discharge date 07/21/2023 due to abdominal pain that was present for few days. Had CT scan of abdomen and pelvis done at ER showing infiltrative changes that could represent diverticulitis. Neoplasm can not be excluded. Will be referred to Gastroenterology for that matter. Last colonoscopy was 2018 and has history of tubular adenoma. No change in bowel or bladder habits. No fever. No nausea or vomiting. Was prescribed an antibiotic that he will complete today. Advised to follow a low- cholesterol diet for his pure hypercholesterolemia. Has some mild major depression but declines any treatment. [facility] Medical History (Updated 07/30/23 @ 07:24 by Lauren Hansen MD) Hypovitaminosis D Rash and nonspecific skin eruption Pure hypercholesterolemia Right shoulder pain Left shoulder pain Urticaria Surgical History No pertinent past surgical history Family History Father Prostate cancer Mother FH: uterine cancer Maternal Grandmother Cancer Maternal Grandfather Cancer Paternal Grandmother Cancer Paternal Grandfather Cancer Social History Housing: House Alcohol intake: never Patient Tobacco Use Status: Never used Tobacco e-Cigarette/Vaping Use: Never Used Second Hand Smoke Exposure: No service: No Current occupational status: employed Cognitive needs: No Hearing needs: No Vision needs: No Questionnaire PHQ-9 Over the last 2 weeks, how often have you been bothered by any of the following problems? 1. Little interest or pleasure in doing things: not at all 2. Feeling down, depressed, or hopeless: nearly every day 3. Trouble falling or staying asleep, or sleeping too much: several days 4. Feeling tired or having little energy: several days 5. Poor appetite or overeating: several days 6. Feeling bad about yourself - or that you are a failure or have let yourself or your family down: not at all 7. Trouble concentrating on things, such as reading the newspaper or watching television: not at all 8. Moving or speaking so slowly that other people could have noticed. Or the opposite - being so fidgety or restless that you have been moving around a lot more than usual: several days 9. Thoughts that you would be better off or of hurting yourself in some way: not at all Total score: 7 Depression Screening Interpretation: Positive Depression Screening Follow-up: Existing condition Depression Screening Done: Yes 24468 - PHQ-9 Billing: Yes Source: Developed by Drs. Bruce Gleason, Deepika Don, Baudilio Cruz and colleagues, with an educational katie from [employer]. Thrive Questionnaire Date Thrive assessed: 07/29/23 I am a: Patient What is your living situation today?: I have a steady place to live Within the past 12 months, did the food you bought not last and you didn't have the money to get more?: Never true Within the past 12 months, did you worry whether your food would run out before you got money to buy more?: Never true Do you have trouble paying for medicines?: No Do you have trouble getting transportation to medical appointments?: No Do you have trouble paying your heating and electricity bill?: No Do you have trouble taking care of your child, family member or friend?: No Do you have trouble with day-to-day activities such as bathing, preparing meals, shopping, managing finances, etc.?: No Are you currently unemployed and looking for a job?: No Are you interested in more education?: No Please select the resources that you would like help with: None Currently or been in a relationship where the following occur: no concerns reported THRIVE Score: 0 AUDIT C Alcohol Use Questionnaire (AUDIT-C) 1. How often do you have a drink containing alcohol?: Never Total Score: 0 MARIELA-7 AMB Questionnaire MARIELA-7 Date MARIELA - 7 assessed: 07/29/23 Feeling nervous, anxious, or on edge: 2 = More than half the days Not being able to stop or control worryin = Not at all Worrying too much about different things: 0 = Not at all Trouble relaxin = Not at all Being so restless that it is hard to sit still: 0 = Not at all Becoming easily annoyed or irritable: 0 = Not at all Feeling afraid as if something awful might happen: 0 = Not at all Total MARIELA-7 score (0-4 normal; 5-9 mild; 10-14 moderate; 15-21 severe): 2 Source: Developed by Drs. Bruce Gleason, Deepika Don, Baudilio Cruz and colleagues, with an educational katie from [employer]. MARIELA-7 Assessment Billing MARIELA-7 Assessment Tool: MARIELA-7 Assessment 22234 Review of Systems Const All systems reviewed & are unremarkable except as noted in HPI and below Eyes Reports no additional complaints, Denies change in vision and Denies other visual disturbances Card Denies chest pain at rest, Denies chest pain with activity, Denies edema, Denies irregular heart rhythm, Denies claudication, Denies dyspnea, Denies dyspnea on exertion, Denies orthopnea, Denies paroxysmal nocturnal dyspnea and Denies slow heart rate Resp Denies cough, Denies dyspnea and Denies dyspnea on exertion GI Denies abdominal pain, Denies change in bowel habits, Denies excessive flatus, Denies nausea and Denies vomiting Denies urinary hesitancy, Denies urinary incontinence and Denies urinary urgency Musc Denies abnormal gait, Denies atrophy, Denies deformity and Denies limited range of motion Skin/Breast Denies bleeding lesions, Denies changing lesions and Denies rash Neuro Denies abnormal gait, Denies behavioral changes and Denies lack of coordination Psych Denies behavioral changes Physical exam (Primary Care) Vital Signs: Last Vital Signs BP 126/80 07/29/23 16:00 BMI result Body Mass Index 24.9 Tobacco/Smoking Status: Tobacco use Status Tobacco use date assessed 07/29/23 07/29/23 16:07 Patient Tobacco Use Status Never used Tobacco 07/29/23 16:07 e-Cigarette/Vaping Use Never Used 07/29/23 16:07 PHQ-9: PHQ-9 Score PHQ-9: Total score 7 07/29/23 16:33 Depression Screening Interpretation: Positive Depression Screening Follow-up: Existing condition Thrive Assessment: Date of Thrive Assessment Date Thrive assessed 07/29/23 07/29/23 16:07 Currently or been in a relationship where the following occur: no concerns reported Eyes General: appearance normal, both eyes and all related structures Eyelids: Yes eyelids normal Conjunctivae: conjunctivae normal Neck Neck: Yes normal visual inspection and Yes supple Resp Effort & Inspection: normal respiratory effort Auscultation: clear to auscultation bilaterally Cardio Jugular venous distension: no JVD Rate: regular rate Rhythm: regular rhythm Heart sounds: S1 normal heart sound present and S2 normal heart sound present GI Inspection: Yes normal to inspection Palpation (GI): Soft to palpation and nontender Auscultation: normal bowel sounds Extrem General: Yes full ROM Psych Appearance: grossly normal Assessment and Plan Assessment & Plan (1) Hospital discharge follow-up: Code(s): Z09 - Encounter for follow-up examination after completed treatment for conditions other than malignant neoplasm Plan: Discharge date 07/21/2023 due to abdominal pain. CT of abdomen and pelvis done showing diverticulitis and neoplasm could not be excluded. Will be referred to Gastroenterology. (2) Diverticulitis: Code(s): K57.92 - Diverticulitis of intestine, part unspecified, without perforation or abscess without bleeding Plan: Continue Augmentin until completed. (3) Abnormal finding on CT scan: Code(s): R93.89 - Abnormal findings on diagnostic imaging of other specified body structures Plan: Referred to Gastroenterology. (4) Pure hypercholesterolemia: Code(s): E78.00 - Pure hypercholesterolemia, unspecified Plan: Follow a low-cholesterol diet. (5) Mild major depression: Code(s): F32.0 - Major depressive disorder, single episode, mild Plan: Declines daily treatment now. Orders: Referrals Gastroenterology Referral R10.9 - Unspecified abdominal pain, R93.89 - Abnormal findings on diagnostic imaging of other specified body structures Coding Level of Care Code TCM Mod MDM <= 14 Days Diagnoses Hospital discharge follow-up Z09 Diverticulitis K57.[address] scan R93.89 Pure hypercholesterolemia E78.00 Mild major depression F32.0 Additional Codes MARIELA-7 Assessment Billing - MARIELA-7 Assessment Tool: MARIELA-7 Assessment 39963 ([id number]) Time Spent (min) 23
== END 2023-07-29 16:37 | disposition home or self-care (01) ==
PROVIDERS: PCP Internal Medicine; Visit Provider Internal Medicine
DX: K57.92 Diverticulitis of intestine, part unspecified, without perforation or abscess without bleeding (principal); R93.89 Abnormal findings on diagnostic imaging of other specified body structures; E78.00 Pure hypercholesterolemia, unspecified; F32.0 Major depressive disorder, single episode, mild
CPT/HCPCS: 99213

== ENCOUNTER 2023-08-02 08:49 | Outpatient (AMB) | payer OTHER, SELFPAY ==
--- NOTE | 2023-08-02 08:52 | A.OFFVIS_ITS ---
Intake Vital Signs 08/02/23 08:54 Height 5 ft 7 in Weight 158 lb 11.725 oz BMI 24.9 BP 143/86 H Blood Pressure Location Lt brachial Position Sitting Pulse 97 Intake Visit Reasons: Abnormal Findings, Abdominal Pains Intake Note: Chaz presents in the office as a new patient for abnormal findings and abdominal pains. CC: He states that father passed of colon cancer. He states he is having abdominal pains, he says he has both constipation and diarrhea at times. 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 Seen with [facility]. Reports LLQ pain x 1 month that has been progressing. Has been to ER x2 and diagnosed with possible diverticulitis of sigmoid colon. Reports decreased appetite, nausea and soft BMs which sometimes have blood in it. Fam hx + CRC in father in his 70s. [place]: 2019: Suboptimal prep. No polyps. Divert iculosis of L colon. Repeat recommended in 5 years due to hx of advanced polyp. 2016: 1.5 cm flat polyp in sigmoid colon with T.A with moderate dysplasia 2016: Bx of flat polyp in sigmoid: T.A w ith focal HGD. [facility] Medical History Hypovitaminosis D Rash and nonspecific skin eruption Pure hypercholesterolemia Right shoulder pain Left shoulder pain Urticaria Surgical History Hx of colonoscopy No pertinent past surgical history Family History (Updated 08/02/23 @ 08:57 by ANN-MARIE Kirkpatrick) Father Prostate cancer Colon cancer Mother FH: uterine cancer Maternal Grandmother Cancer Maternal Grandfather Cancer Paternal Grandmother Cancer Paternal Grandfather Cancer Social History Housing: House Alcohol intake: never Patient Tobacco Use Status: Never used Tobacco e-Cigarette/Vaping Use: Never Used Second Hand Smoke Exposure: No service: No Current occupational status: employed Cognitive needs: No Hearing needs: No Vision needs: No Review of Systems Const All systems reviewed & are unremarkable except as noted in HPI and below Physical Exam Vital Signs: Last Vital Signs Pulse 97 08/02/23 08:54 BP 143/86 H 08/02/23 08:54 BMI result Body Mass Index 24.9 Tearful NAD Nondistended abd Oriented x3 with normal gait Assessment & Plan Assessment & Plan (1) Abnormal finding on CT scan: Code(s): R93.89 - Abnormal findings on diagnostic imaging of other specified body structures (2) Abdominal pain: Code(s): R10.9 - Unspecified abdominal pain Qualifiers: Abdominal location: periumbilical Qualified Code(s): R10.33 - Periumbilical pain (3) Personal history of colonic polyps: Code(s): Z86.010 - Personal history of colonic polyps (4) Diverticulitis: Code(s): K57.92 - Diverticulitis of intestine, part unspecified, without perforation or abscess without bleeding (5) Family history of colon cancer: Code(s): Z80.0 - Family history of malignant neoplasm of digestive organs Plan Reviewed with the pt that a follow up colo is indicated after diverticulitis to r/o CRC kiera in his case as imaging findings are somewhat atypical. Pt also has additional risk factors including hx of advanced adenoma and fam hx. The colo will be booked at least 6-8 weeks after his episode of diverticulitis to reduce the risk of perforation. Plan: - [facility] to be booked 8 weeks after last ER visit for diverticulitis. - Split PEG prep prescribed and handout in [place] provided Follow up after colo. Medications: New peg 3350-electrolytes 236-22.74-6.74 -5.86 gram (Golytely) as per split prep instructions, until fecal effluent is clear 240 mL PO Q10M 4,000 mL 0RF colonoscopy Quality Reporting (2019) Adult (CMS 138/07/22/68) Smoking risk assessment performed?: Yes Patient Tobacco Use Status: Never used Tobacco Coding Level of Care Code New Pt Level 4 (18475) Diagnoses Abnormal finding on CT scan R93.89 Periumbilical abdominal pain R10.33 Abdominal location: periumbilical Personal history of colonic polyps Z86.010 Diverticulitis K57.92 Family history of colon cancer Z80.0
[2023-08-02 08:54] VITALS: BP 143/86; PULSE 97; BMI 24.9
== END 2023-08-02 10:28 | disposition home or self-care (01) ==
PROVIDERS: PCP Internal Medicine; Visit Provider Internal Medicine
DX: R93.89 Abnormal findings on diagnostic imaging of other specified body structures (principal); R10.33 Periumbilical pain; Z86.010 Personal history of colon polyps; K57.92 Diverticulitis of intestine, part unspecified, without perforation or abscess without bleeding; Z80.0 Family history of malignant neoplasm of digestive organs
CPT/HCPCS: 99204

== ENCOUNTER → 2023-08-02 08:49 | Outpatient (BNVA) | payer OTHER, SELFPAY | PROVIDERS: PCP Internal Medicine; Visit Provider Internal Medicine | DX: R93.89 Abnormal findings on diagnostic imaging of other specified body structures (principal); R10.33 Periumbilical pain; K57.92 Diverticulitis of intestine, part unspecified, without perforation or abscess without bleeding; Z86.010 Personal history of colon polyps; Z80.0 Family history of malignant neoplasm of digestive organs | CPT/HCPCS: 99202 ==

== ENCOUNTER 2023-11-04 15:06 | Outpatient (AMB) | payer OTHER, SELFPAY ==
[2023-11-04 15:07] VITALS: BP 118/70; BMI 23.6
--- NOTE | 2023-11-04 15:07 | A.OFFPC_ITS ---
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 Will have colonoscopy this year. Complains of abdominal pain in the lower quadrants every time he eats that started few months ago. No chest pain or shortness on breath. [facility] Medical History (Updated 11/04/23 @ 15:36 by Lauren Hansen MD) Mild major depression Hypovitaminosis D Rash and nonspecific skin eruption Pure hypercholesterolemia Right shoulder pain Left shoulder pain Urticaria Surgical History Hx of colonoscopy No pertinent past surgical history Family History Father Prostate cancer Colon cancer Mother FH: uterine cancer Maternal Grandmother Cancer Maternal Grandfather Cancer Paternal Grandmother Cancer Paternal Grandfather Cancer Social History Housing: House Alcohol intake: never Patient Tobacco Use Status: Never used Tobacco e-Cigarette/Vaping Use: Never Used Second Hand Smoke Exposure: No service: No Current occupational status: employed Current occupational exposures/hazards: No Cognitive needs: No Hearing needs: No Vision needs: No Questionnaire Thrive Questionnaire Date Thrive assessed: 07/29/23 MARIELA-7 AMB Questionnaire MARIELA-7 Date MARIELA - 7 assessed: 07/29/23 Source: Developed by Drs. Bruce Gleason, Deepika Don, Baudilio Cruz and colleagues, with an educational katie from [employer]. Review of Systems Const All systems reviewed & are unremarkable except as noted in HPI and below Card Denies chest pain at rest, Denies chest pain with activity, Denies edema, Denies irregular heart rhythm, Denies claudication, Denies dyspnea, Denies dyspnea on e xertion, Denies orthopnea, Denies paroxysmal nocturnal dyspnea and Denies slow heart rate Resp Denies cough, Denies dyspnea and Denies dyspnea on exertion GI Reports abdominal pain, Denies change in bowel habits, Denies excessive flatus, Denies nausea and Denies vomiting Denies urinary hesitancy, Denies urinary incontinence and Denies urinary urgency Physical exam (Primary Care) Vital Signs: Last Vital Signs BP 118/70 11/04/23 15:07 BMI result Body Mass Index 23.6 Tobacco/Smoking Status: Tobacco use Status Tobacco use date assessed 07/29/23 11/04/23 15:12 Patient Tobacco Use Status Never used Tobacco 11/04/23 15:12 e-Cigarette/Vaping Use Never Used 11/04/23 15:12 Thrive Assessment: Date of Thrive Assessment Date Thrive assessed 07/29/23 11/04/23 15:12 Const Orientation/consciousness: patient oriented x3 HENMI Head: Yes normal to inspection, Yes normocephalic and Yes atraumatic Ears: external ears normal Eyes General: appearance normal, both eyes and all related structures Eyelids: Yes eyelids normal Conjunctivae: conjunctivae normal Neck Neck: Yes normal visual inspection and Yes supple Resp Effort & Inspection: normal respiratory effort Auscultation: clear to auscultation bilaterally Cardio Jugular venous distension: no JVD Rate: regular rate Rhythm: regular rhythm Heart sounds: S1 normal heart sound present and S2 normal heart sound present GI Inspection: Yes normal to inspection Palpation (GI): Soft to palpation and nontender Auscultation: normal bowel sounds Skin General skin exam: no rashes or lesions noted Neuro General: patient oriented x3 and no focal motor deficits Extrem General: Yes full ROM Psych Appearance: grossly normal Assessment and Plan Assessment & Plan (1) Physical exam: Code(s): Z00.00 - Encounter for general adult medical examination without abnormal findings Plan: Repeat in a year. Orders: Orders Lipid Panel Today E78.00 - Pure hypercholesterolemia, unspecified, E78.5 - Hyperlipidemia, unspecified Vitamin D 25-OH Total Today E55.9 - Vitamin D deficiency, unspecified Comprehensive [place]. Panel Fast Today E78.00 - Pure hypercholesterolemia, unspecified Coding Level of Care Code Est Pt Prev Care 40-64y(43732) Diagnoses Physical exam Z00.00 Time Spent (min) 31
== END 2023-11-04 15:25 | disposition home or self-care (01) ==
PROVIDERS: PCP Internal Medicine; Visit Provider Internal Medicine
DX: Z00.00 Encounter for general adult medical examination without abnormal findings (principal); R10.32 Left lower quadrant pain; E78.00 Pure hypercholesterolemia, unspecified; E55.9 Vitamin D deficiency, unspecified
CPT/HCPCS: 99396

== ENCOUNTER 2023-11-18 06:07 | Outpatient (REF) | payer OTHER, SELFPAY ==
[2023-11-18 08:19] LABS: Alanine Aminotransferase 17 U/L (0-40); Albumin Level 4.3 g/dL (3.5-5.0); Alkaline Phosphatase 63 U/L (39-117); Anion Gap 13 (12-20); Aspartate Amino Transferase 21 U/L (5-37); Bilirubin Total 0.7 mg/dL (0.0-1.0); Blood Urea Nitrogen 15 mg/dL (9-16); Calcium 9.4 mg/dL (8.4-10.2); Carbon Dioxide 28 mmol/L (22-29); Chloride 106 mmol/L (96-108); Cholesterol 195 mg/dL (<200); Estimated Glomerular Filt Rate > 60; Glucose Fasting 95 mg/dL (60-99); HDL Cholesterol 73 mg/dL (>40); LDL Cholesterol Calculated 109 mg/dL (<100); Potassium 4.2 mmol/L (3.3-5.1); Sodium 143 mmol/L (135-145); Total Protein 7.2 g/dL (6.5-8.0); Triglycerides 66 mg/dL (<150)
[2023-11-18 08:38] LABS: Vitamin D 25-OH Total 33.1 ng/mL (>30)
== END 2023-11-18 06:08 | disposition home or self-care (01) ==
LOC: HO.LAB 06:07
PROVIDERS: PCP Internal Medicine; Visit Provider Internal Medicine
DX: E78.5 Hyperlipidemia, unspecified (principal); E78.00 Pure hypercholesterolemia, unspecified; E55.9 Vitamin D deficiency, unspecified
CPT/HCPCS: 36415; 80053; 80061; 82306

== ENCOUNTER 2024-02-17 09:29 | Day surgery (SDC) | payer OTHER, SELFPAY ==
[2024-02-15 10:54] VITALS: BMI 24.7
--- NOTE | 2024-02-16 09:53 | HO.ANESPROP2 ---
Documented by User: Jimena Valentin NP 02/16/24 09:53 HPI - Anesthesia Eval Consult details Narrative: 58yo M for Colonoscopy PMFSH Active Problems Active Problems: All Active Problems Physical exam (Acute) Family history of colon cancer (Acute) Personal history of colonic polyps (Acute) Hospital discharge follow-up (Acute) Abnormal finding on CT scan (Acute) Abdominal pain (Acute) Encounter for drug screening (Acute) Hyperkalemia (Acute) Constipation (Acute) Screening for colon cancer (Acute) Blood in stool (Acute) Insomnia (Acute) Screening for prostate cancer (Acute) Depression with anxiety (Acute) Hypovitaminosis D (Acute) Rash and nonspecific skin eruption (Acute) Pure hypercholesterolemia (Acute) Right shoulder pain (Acute) Left shoulder pain (Acute) Urticaria (Acute) Past Medical History Medical History (Updated 11/04/23 @ 15:36 by Lauren Hansen MD) Mild major depression Hypovitaminosis D Rash and nonspecific skin eruption Pure hypercholesterolemia Right shoulder pain Left shoulder pain Urticaria Family History Family History Father Prostate cancer Colon cancer Mother FH: uterine cancer Maternal Grandmother Cancer Maternal Grandfather Cancer Paternal Grandmother Cancer Paternal Grandfather Cancer Surgical History Surgical History Hx of colonoscopy No pertinent past surgical history Social History Social History Housing: House Alcohol intake: never Patient Tobacco Use Status: Current everyday Tobacco user Cigarettes Per Day: 4 e-Cigarette/Vaping Use: Never Used Second Hand Smoke Exposure: No Use of substances other than those prescribed or required for medical reasons: No Have you been hit, kicked, punched, or otherwise hurt by someone within the past year? If so, by whom?: No Are you DNR?: No Advance Directives: No Advance Directives Information Provided: Yes Recently lost weight without trying: No Nutrition Risks: No Nutritional Risk service: No Current occupational status: employed Current occupational exposures/hazards: No Cognitive needs: No Hearing needs: No Vision needs: No Meds Allergies Allergy/AdvReac Type Severity Reaction Status Date / Time No Known Allergies Allergy Verified 11/04/23 15:17 Home Medications ?Medication ?Instructions ?Recorded ?Confirmed ?Last Taken ?Type No Known Home Meds 11/04/23 11/04/23 Unknown History Exam Height,Weight and Vital Signs: Height 5 ft 7 in Weight 71.668 kg Assessment and Plan Assessment Anesthesia Assessment: Chart Reviewed Documented by User: Patricia Veronica MD 02/17/24 10:40 [facility] Past Medical History Medical History (Updated 11/04/23 @ 15:36 by Lauren Hansen MD) Mild major depression Hypovitaminosis D Rash and nonspecific skin eruption Pure hypercholesterolemia Right shoulder pain Left shoulder pain Urticaria Family History Family History Father Prostate cancer Colon cancer Mother FH: uterine cancer Maternal Grandmother Cancer Maternal Grandfather Cancer Paternal Grandmother Cancer Paternal Grandfather Cancer Family history of problems with anesthesia: No Surgical History Surgical History Hx of colonoscopy No pertinent past surgical history History of Problems with Anesthesia: No Social History Social History Housing: House Alcohol intake: never Patient Tobacco Use Status: Current everyday Tobacco user Cigarettes Per Day: 4 e-Cigarette/Vaping Use: Never Used Second Hand Smoke Exposure: No Use of substances other than those prescribed or required for medical reasons: No Have you been hit, kicked, punched, or otherwise hurt by someone within the past year? If so, by whom?: No Are you DNR?: No Advance Directives: No Advance Directives Information Provided: Yes Recently lost weight without trying: No Nutrition Risks: No Nutritional Risk service: No Current occupational status: employed Current occupational exposures/hazards: No Cognitive needs: No Hearing needs: No Vision needs: No Meds Allergies Allergy/AdvReac Type Severity Reaction Status Date / Time No Known Allergies Allergy Verified 11/04/23 15:17 Home Medications ?Medication ?Instructions ?Recorded ?Confirmed ?Last Taken ?Type No Known Home Meds 11/04/23 11/04/23 Unknown History Exam Airway Mallampati Class: II TM Dist: >3cm Neck ROM: Full Heart: rrr Lungs: cta Assessment and Plan Assessment Anesthesia Assessment: Anesthesia Plan Discussed Final Anesthetic Review Family History of Problems with Anesthesia: No History of Problems with Anesthesia: No NPO: Yes ASA Class: II Final Preanesthetic Review: No Changes in Pt Med Stat, Meds/Allgs Chart Reviewed and Consent Obtained/Reviewed Patient Risk: Low Procedure Risk: Low Anesthetic Plan Anesthetic Plan: MAC: Disposition: Standard PACU
[2024-02-17] VITALS (7 sets, daily range): BP systolic 95–127; BP diastolic 57–78; PULSE 60–81; RESP 16–18; TEMP 36.1–36.7; O2SAT 97–100; BMI 21.9
--- NOTE | 2024-02-17 10:37 | MHC.SHP ---
Pre-Procedural Eval Section A - 24 Hr Update-Section A only Date of Service: 02/17/24 Section B - Complete if H&P > 30 days Chief Complaint: Diverticulitis of intestine, part unspecified, wit Details of Present Illness: Hypovitaminosis D Rash and nonspecific skin eruption Pure hypercholesterolemia Right shoulder pain Left shoulder pain Urticaria Surgical History Hx of colonoscopy No pertinent past surgical history Present Medications: see Short Stay Collaborative assessment Allergies: Allergies Allergy/AdvReac Type Severity Reaction Status Date / Time No Known Allergies Allergy Verified 11/04/23 15:17 Review of Systems Review of Systems Comment: Ten point ROS negative Exam Exam Comment: Gen appear: No acute distress HEENT: no icterus Chest: No overt resp distress Abd: soft, nontender, nondistended Psych: Stable affect, answering questions appropriately Neuro: A/Ox3 noted to move all extremities spontaneously Ext: no peripheral edema Plan Diagnosis/Plan: Unchanged I have reviewed the history and physical and performed a pertinent physical examination on my patient. No changes have occurred unless specified. Time Spent With Patient Time: Total time managing care of this patient today ____ minutes.
[2024-02-17] MEDS: Lactated Ringers 1,000 ML 100 ML IVCONT (10:39)
--- NOTE | 2024-02-17 11:10 | HO.OPN-COLON ---
Colonoscopy Operative Note Operative Note Date of Service: 02/17/24 Narrative: Procedure: Colonoscopy Indication: Hx of diverticulitis, personal hx of polyps and fam hx of crc Endoscopist: Tarsha Juarez MD Anesthesia Provider: Maria Fall CRNA Anesthesia type: MAC Instrument: Olympus PCF-H190L and GIF-[id number] Consent: Indication, risks vs benefits, and alternatives were discussed with the patient who gave written informed consent to proceed. An customer facilities supervisor was utilized to assist with the consent. EKG, pulse, pulse oximetry and blood pressure were monitored throughout the procedure. Please see anesthesia flowsheet. Procedure: The patient was brought to the procedure room and placed in the left lateral decubitus position. IV medications were administered by the anesthesia provider in attendance. A digital rectal exam was performed which was abnormal due to finding of hemorrhoids. A distal attachment cap was affixed to the tip of the colonoscope which was then inserted through the anus and advanced through the colon to 40 cm. Mucosa was carefully examined under high definition white light as the instrument was slowly withdrawn in a retrograde panoramic fashion. Retroflexion was performed in rectum. The procedure was not difficult. There were no immediate obvious complications. The quality of the prep was BBPS: N/A+N/A+2 = adequate Withdrawal time N/A Limitations: Incomplete colo Findings: Mucosa: Liquid stool in rectum which was flushed and suctioned. A partially obstructing friable and ulcerated mass was noted at 40 cm. This could not be traversed with the PCF. We then switched the scope to gastroscope which also could not traverse the lumen. Multiple cold forceps biopsies were taken for histology. Protruding lesions: Medium internal hemorrhoids [without] stigmata of recent bleeding. Impression: 1. Partially obstructing colon mass in sigmoid colon at 40 cm. (biopsy) 2. External and internal hemorrhoids Recommendations: - Follow path results. - CT chest abd and pel with contrast to be done urgently as outpatient. - Low residue diet and miralax BID to keep stools liquid to prevent obstruction. - Referral to surgery requested. May need Onc referral as well based on findings on above.
[2024-02-17] MEDS: LORazepam 1 MG TABLET 2 MG PO (12:21)
== END 2024-02-17 13:53 | disposition home or self-care (01) ==
PROVIDERS: PCP Internal Medicine; Visit Provider Internal Medicine
PROC: 0DJD8ZZ Inspection of Lower Intestinal Tract, Via Natural or Artificial Opening Endoscopic (ICD-10-PCS; CPT 45378; principal; 2024-02-17 12:30)
DX: Z12.11 Encounter for screening for malignant neoplasm of colon (principal); Z86.010 Personal history of colon polyps; Z80.0 Family history of malignant neoplasm of digestive organs; D12.5 Benign neoplasm of sigmoid colon; K57.30 Diverticulosis of large intestine without perforation or abscess without bleeding; K64.8 Other hemorrhoids; K64.4 Residual hemorrhoidal skin tags; Z87.19 Personal history of other diseases of the digestive system; I10 Essential (primary) hypertension; E78.00 Pure hypercholesterolemia, unspecified; E55.9 Vitamin D deficiency, unspecified; L50.9 Urticaria, unspecified
CPT/HCPCS: 45331; 88305; J2250; J2704

== ENCOUNTER → 2024-02-17 09:29 | Outpatient (BNV) | payer OTHER, SELFPAY | PROVIDERS: PCP Internal Medicine; Visit Provider Internal Medicine | DX: K57.80 Diverticulitis of intestine, part unspecified, with perforation and abscess without bleeding (principal); Z86.010 Personal history of colon polyps; Z80.0 Family history of malignant neoplasm of digestive organs; D37.4 Neoplasm of uncertain behavior of colon | CPT/HCPCS: 45380 ==

== ENCOUNTER 2024-03-09 10:40 | Outpatient (REF) | payer OTHER, SELFPAY ==
[2024-03-09 12:32] LABS: Anion Gap 8 (12-20); Blood Urea Nitrogen 9 mg/dL (9-16); Carbon Dioxide 33 mmol/L (22-29); Chloride 105 mmol/L (96-108); Estimated Glomerular Filt Rate > 60; Glucose Random 83 mg/dL (60-115); Potassium 4.2 mmol/L (3.3-5.1); Sodium 142 mmol/L (135-145)
== END 2024-03-09 10:41 | disposition home or self-care (01) ==
LOC: HO.LAB 10:40
PROVIDERS: Internal Medicine; PCP Internal Medicine; Visit Provider Surgery
DX: K63.89 Other specified diseases of intestine (principal)
CPT/HCPCS: 36415; 80048; 99202

== ENCOUNTER 2024-03-09 10:40 | Outpatient (AMB) | payer OTHER, SELFPAY ==
--- NOTE | 2024-03-09 10:42 | MHC.OFFVIS ---
Intake Visit Reasons: Disease of intestine Intake Note: This patient was referred by for colonic mass in sigmoid colon. Pt c/o; 02/17/24: Colonoscopy() Allergies No Known Allergies Allergy (Verified 11/04/23 15:17) PFSH Medical History (Updated 02/17/24 @ 11:21 by Tarsha Juarez MD) Mild major depression Hypovitaminosis D Rash and nonspecific skin eruption Pure hypercholesterolemia Right shoulder pain Left shoulder pain Urticaria Surgical History Hx of colonoscopy No pertinent past surgical history Family History Father Prostate cancer Colon cancer Mother FH: uterine cancer Maternal Grandmother Cancer Maternal Grandfather Cancer Paternal Grandmother Cancer Paternal Grandfather Cancer Social History Housing: House Alcohol intake: never Patient Tobacco Use Status: Current everyday Tobacco user Cigarettes Per Day: 4 e-Cigarette/Vaping Use: Never Used Second Hand Smoke Exposure: No service: No Current occupational status: employed Current occupational exposures/hazards: No Cognitive needs: No Hearing needs: No Vision needs: No Quality Reporting (2019) Adult ([facility] 13807/22/68) Smoking risk assessment performed?: Yes Patient Tobacco Use Status: Current everyday Tobacco user Coding
--- NOTE | 2024-03-09 10:46 | MHC.OFFVIS ---
Vital Signs 03/09/24 10:48 Height 5 ft 7 in Weight 140 lb BMI 21.9 BP 130/76 Blood Pressure Location Rt brachial Position Sitting Pulse 70 Intake Visit Reasons: Disease of intestine Intake Note: This patient was referred by for colonic mass in sigmoid colon. Pt c/o; pain that spreads to lower back. Howard BM. Denies diarrhea, constipation, nausea. 02/17/24: Colonoscopy() Histopathologist Required: Yes Histopathologist Name: Layne JACOBSEN Accompanied by: Self / Same As Patient Allergies No Known Allergies Allergy (Verified 03/17/24 14:47) Medication List - Last Reconciled 03/09/24 by Clem Herndon MD No Known Home Meds HPI HPI Disease of intestine: Details: 58-year-old male referred because of a colon mass. He had undergone colonoscopy with Dr. Juarez last 02/17/2024. He was noted to have a mass was circumferential and partially obstructing at level 40 cm. Biopsies of this had shown high-grade dysplasia. He describes having periodic abdominal pain for about 2 years now. Review of his records show that he had a CAT scan done last July showing a mass in the level of the proximal sigmoid colon. 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 I would admits to smoking regularly. He also had been told he had diverticulitis in the past [facility] Medical History Mild major depression Hypovitaminosis D Rash and nonspecific skin eruption Pure hypercholesterolemia Right shoulder pain Left shoulder pain Urticaria Surgical History Hx of colonoscopy No pertinent past surgical history Family History Father Prostate cancer Colon cancer Mother FH: uterine cancer Maternal Grandmother Cancer Maternal Grandfather Cancer Paternal Grandmother Cancer Paternal Grandfather Cancer Social History Housing: House Alcohol intake: never Patient Tobacco Use Status: Current everyday Tobacco user Cigarettes Per Day: 4 e-Cigarette/Vaping Use: Never Used Second Hand Smoke Exposure: No service: No Current occupational status: employed Current occupational exposures/hazards: No Cognitive needs: No Hearing needs: No Vision needs: No Review of Systems Const Denies chills and Denies fever(s) Card Denies chest pain, Denies dyspnea and Denies dyspnea on exertion Resp Denies cough, Denies dyspnea and Denies dyspnea on exertion GI Reports abdominal pain, Denies hematochezia and Denies change in bowel habits Denies hematuria and Denies difficulty urinating Musc Denies back pain and Denies limited range of motion Neuro Denies focal weakness and Denies convulsions Psych Denies depression and Denies mood swings Physical Exam Vital Signs: Last Vital Signs Pulse 70 03/09/24 10:48 BP 130/76 03/09/24 10:48 BMI result Body Mass Index 21.9 Const General: comfortable and no acute distress Orientation/consciousness: patient oriented x3 Neck Neck: Yes no lymphadenopathy Resp Auscultation: clear to auscultation bilaterally Cardio Rhythm: regular rhythm GI Palpation (GI): Soft to palpation, nontender and no guarding Neuro General: patient oriented x3 Quality Reporting (2019) Adult ([facility] 138/07/22/68) Smoking risk assessment performed?: Yes Patient Tobacco Use Status: Current everyday Tobacco user Assessment & Plan Assessment & Plan (1) Colonic mass: Code(s): K63.89 - Other specified diseases of intestine Category: Medical Plan: He had a circumferentially, ulcerating mass at level 40 cm on a colonoscopy done last 02/18/[address] Juarez. Biopsy had shown high-grade dysplasia. I explained to him that this will need to be resected. I explained to the technique of hand assisted laparoscopic sigmoid/ left colon resection. I reviewed with him the risks including but not limited to bleeding, infections, injury to other organs including the rest of bowel and urinary tract, conversion to open, possibility of needing a stoma, clots, pneumonia, as well as the benefits and alternatives. I had a long discussion with him about what to expect postoperatively. I had ordered for a CT scan of the abdomen and pelvis to image this area as well as to check the liver for any suggestion of metastatic disease. He seems to understand the above. I have reviewed a CT scan done last July,. This does show a circumferential mass in the proximal sigmoid colon. There was no evidence of any metastatic disease at that time. Orders: Orders CT abdomen pelvis w IV con 03/09/24 K63.89 - Other specified diseases of intestine Creatinine 03/09/24 K63.89 - Other specified diseases of intestine Blood Urea Nitrogen 03/09/24 K63.89 - Other specified diseases of intestine Coding Level of Care Code New Pt Level 4 (80426) Diagnoses Colonic mass K63.89
[2024-03-09 10:48] VITALS: BP 130/76; PULSE 70; BMI 21.9
== END 2024-03-09 11:10 | disposition home or self-care (01) ==
PROVIDERS: PCP Internal Medicine; Visit Provider Surgery
DX: K63.89 Other specified diseases of intestine (principal)
CPT/HCPCS: 99204

== ENCOUNTER 2024-03-17 14:31 | Outpatient (AMB) | payer OTHER, SELFPAY ==
--- NOTE | 2024-03-17 14:44 | MHC.OFFVIS ---
Vital Signs 03/17/24 14:45 Height 5 ft 7 in Weight 138 lb 14.259 oz BMI 21.8 BP 134/78 Blood Pressure Location Lt brachial Position Sitting Pulse 94 Intake Visit Reasons: s/p colonoscopy Intake Note: Chaz presents in the office as a follow up colonoscopy. CC: Pains in the stomach every day, no irregular bowel movements. Pains go from the back to the lower abdomen. 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 Reports LLQ pain x 1 month that has been progressing. Has been to ER x2 and diagnosed with possible diverticulitis of sigmoid colon. Reports decreased appetite, nausea and soft BMs which sometimes have blood in it. Fam hx + CRC in father in his 70s. [place]: 2019: Suboptimal prep. No polyps. Diverticulosis of L colon. Repeat recommended in 5 years due to hx of advanced polyp. 2016: 1.5 cm flat polyp in sigmoid colon with T.A with moderate dysplasia 2016: Bx of flat polyp in sigmoid: T.A with focal HGD. [place] 02/17/24: 1. Partially obstructing colon mass in sigmoid colon at 40 cm. (biopsy) 2. 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 Findings of the colo were already reviewed with the pt over the phone see workload 02/23. He has also been seen by gen surg and plan is for sigmoid resection if staging scans are negative. Pt verbalises understanding of dx. Reviewed that most likely arose from HGD TA prev seen in sigmoid colon. PFSH Medical History Colon cancer [place] (hard of hearing) Low back pain Housing insecurity Depression Anxiety Dizziness Weakness Numbness of legs Cocaine use Smoker Daily consumption of alcohol Mild major depression Hypovitaminosis D Rash and nonspecific skin eruption Pure hypercholesterolemia Right shoulder pain Left shoulder pain Urticaria Surgical History Hx of colonoscopy Family History Father Prostate cancer Colon cancer Mother FH: uterine cancer Maternal Grandmother Cancer Maternal Grandfather Cancer Paternal Grandmother Cancer Paternal Grandfather Cancer Social History Household Members: Children and Other Household Members Other:: SEE NOTE Housing: Other Are you a primary pet care assistant to a significant other at home: No Do you presently have visiting nurse or other home services: No Alcohol intake: never Patient Tobacco Use Status: Current someday Tobacco user Tobacco use type: Cigarette Years Smoked: 18 e-Cigarette/Vaping Use: Never Used Second Hand Smoke Exposure: No Substance Use Type: Crack/Cocaine service: No Current occupational status: employed Current occupational exposures/hazards: No Sexual orientation: Straight/Heterosexual Gender identity: Male Cognitive needs: No Hearing needs: No Vision needs: No Review of Systems Const All systems reviewed & are unremarkable except as noted in HPI and below Physical Exam Vital Signs: Last Vital Signs Pulse 94 03/17/24 14:45 BP 134/78 03/17/24 14:45 BMI result Body Mass Index 21.8 No apparent distress Nonicteric Abdomen soft, nondistended Alert and oriented x3, normal gait Quality Reporting (2020) Adult ([facility] 138/07/22/68) Smoking risk assessment performed?: Yes Patient Tobacco Use Status: Current everyday Tobacco user Assessment & Plan Assessment & Plan (1) Colonic mass: Code(s): K63.89 - Other specified diseases of intestine (2) Partial obstruction of colon: Code(s): K56.600 - Partial intestinal obstruction, unspecified as to cause Plan Discussed with the pt that while path shows HGD, appearance highly consistent with malignant mass and likely sampling error. Plan is for sigmoid colon resection if stagin scans negative. Plan: - Await scans - Pt encouraged to stay on low residue diet and keep stools soft/liquid to prevent complete obstruction - Since this was an incomplete colo will need completion colo within 3-6 months of colon resection Follow up in 3 months to review above Medications: New polyethylene glycol 3350 (Miralax) 17 grams PO BID 238 grams 1RF Coding Level of Care Code Est Pt Level 4 (54473) Diagnoses Colonic mass K63.89 Partial obstruction of colon K56.600
[2024-03-17 14:45] VITALS: BP 134/78; PULSE 94; BMI 21.8
== END 2024-03-17 15:40 | disposition home or self-care (01) ==
PROVIDERS: PCP Internal Medicine; Visit Provider Internal Medicine
DX: K63.89 Other specified diseases of intestine (principal); K56.600 Partial intestinal obstruction, unspecified as to cause
CPT/HCPCS: 99214

== ENCOUNTER → 2024-03-17 14:31 | Outpatient (BNVA) | payer OTHER, SELFPAY | PROVIDERS: PCP Internal Medicine; Visit Provider Internal Medicine | DX: K63.89 Other specified diseases of intestine (principal); K56.600 Partial intestinal obstruction, unspecified as to cause | CPT/HCPCS: 99212 ==

== ENCOUNTER 2024-03-29 10:59 | Outpatient (REF) | payer OTHER, SELFPAY ==
--- NOTE | ~2024-03-29 | CT_ITS ---
EXAMINATION: CT ABDOMEN AND PELVIS WITH CONTRAST CLINICAL INFORMATION: Colonic mass. COMPARISON: CT abdomen and pelvis dated 07/21/2023. TECHNIQUE: Multidetector volumetric images were obtained from the superior aspect of the liver through the pubic symphysis following administration 85 mL of Omnipaque 350 intravenous contrast. Sagittal and coronal reformatted images were obtained on the technologist's workstation. Oral contrast: No This CT examination was performed using dose optimization techniques as appropriate, variously including the following: *Automated exposure control *Adjustment of mA and/or kV according to patient size (this includes techniques or standardized protocols for targeted exams where dose is matched to indication/reason for exam; i.e. extremities or head) *Use of iterative reconstruction technique DLP: 421 mGy-cm FINDINGS: LUNG BASES: The visualized lung bases are unremarkable. LIVER, GALLBLADDER, AND BILIARY TREE: The liver is normal in size, shape, and attenuation. No focal hepatic lesion or biliary ductal dilatation is present. The gallbladder is unremarkable with no evidence of radiopaque gallstones, gallbladder wall thickening, or obvious pericholecystic inflammatory changes. PANCREAS: Unremarkable. SPLEEN: Unremarkable. ADRENAL GLANDS: Unremarkable. KIDNEYS AND URETERS: The kidneys are normal in size, shape, and attenuation. No hydronephrosis, hydroureter, or calculi seen. No perinephric stranding. BLADDER: Unremarkable. GASTROINTESTINAL TRACT: There is mild diverticulosis, without acute diverticulitis. No bowel obstruction, free intraperitoneal air or abscess is seen. There is sigmoid wall thickening (2:67). The vermiform appendix appears normal. ABDOMINAL WALL: No significant hernia is appreciated. LYMPH NODES: Normal. VASCULAR: Unremarkable. PELVIC VISCERA: There is prostatomegaly, with a transverse span of 5.8 cm. The seminal vesicles are unremarkable. OSSEOUS STRUCTURES: There is multi-level thoracolumbar spondylosis. No acute or aggressive osseous bodies noted. CT/CT abdomen pelvis w IV con IMPRESSION: 1. There is wall thickening of the sigmoid colon. There is mild diverticulosis. Please correlate with the patient's most recent colonoscopy. 2. No abdominopelvic metastasis, lymphadenopathy or ascites is seen. 3. There is multi-level thoracolumbar spondylosis. No aggressive osseous lesion is seen. Fleischner guidelines were followed. Electronically signed by: John Handy MD 03/29/2024 02:46 PM EDT RP
[2024-03-29] MEDS: iohexoL 350 MG/ML 100 ML INFUS..BTL 85 ML IV (11:27)
== END 2024-03-29 11:00 | disposition home or self-care (01) ==
LOC: HO.CT 10:59
PROVIDERS: PCP Internal Medicine; Visit Provider Surgery
DX: K63.89 Other specified diseases of intestine (principal)
CPT/HCPCS: 74177; Q9967

== ENCOUNTER → 2024-04-04 12:55 | Outpatient (BNV) | payer OTHER, SELFPAY | PROVIDERS: Admitting Provider Surgery; PCP Internal Medicine; Visit Provider Internal Medicine Cardiovascular Disease | DX: R53.1 Weakness (principal); K63.89 Other specified diseases of intestine | CPT/HCPCS: 93010 ==

== ENCOUNTER → 2024-04-11 | Day surgery (SDC) | payer OTHER, SELFPAY ==
--- NOTE | 2024-04-04 | ECG_ITS ---
Test Reason : PREOP Blood Pressure : / mmHG Vent. Rate : 064 BPM Atrial Rate : 064 BPM P-R Int : 142 ms QRS Dur : 074 ms QT Int : 390 ms P-R-T Axes : 056 063 050 degrees QTc Int : 402 ms Normal sinus rhythm Normal ECG When compared with ECG of 03-JAN-2016 21:25, No significant change was found Referred By: Jimena Valentin Electronically Signed By:TIARA SAENZ MD
[2024-04-04 11:57] VITALS: BP 111/71; PULSE 87; RESP 16; O2SAT 99; BMI 21.9
--- NOTE | 2024-04-04 12:29 | P.CONAN_ITS ---
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 Is going to decrease intake by half every day leading up to surgery to maintain 0-1 beers daily +cocaine use: last used 04/01/24, will abstain. 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 Motivated to decrease/abstain. PMFSH Active Problems Active Problems: All Active Problems Colonic mass (Acute) Physical exam (Acute) Family history of colon cancer (Acute) Personal history of colonic polyps (Acute) Hospital discharge follow-up (Acute) Abnormal finding on CT scan (Acute) Abdominal pain (Acute) Encounter for drug screening (Acute) Hyperkalemia (Acute) Constipation (Acute) Screening for colon cancer (Acute) Blood in stool (Acute) Insomnia (Acute) Screening for prostate cancer (Acute) Depression with anxiety (Acute) Hypovitaminosis D (Acute) Rash and nonspecific skin eruption (Acute) Pure hypercholesterolemia (Acute) Right shoulder pain (Acute) Left shoulder pain (Acute) Urticaria (Acute) Past Medical History Medical History (Updated 04/04/24 @ 12:25 by Rachel Noel, LEI) [place] (hard of hearing) Low back pain Housing insecurity Depression Anxiety Dizziness Weakness Numbness of legs Cocaine use Smoker Daily consumption of alcohol Mild major depression Hypovitaminosis D Rash and nonspecific skin eruption Pure hypercholesterolemia Right shoulder pain Left shoulder pain Urticaria Family History Family History Father Prostate cancer Colon cancer Mother FH: uterine cancer Maternal Grandmother Cancer Maternal Grandfather Cancer Paternal Grandmother Cancer Paternal Grandfather Cancer Family history of problems with anesthesia: No Surgical History Surgical History (Updated 04/04/24 @ 12:17 by Rachel Noel RN) Hx of colonoscopy History of Problems with Anesthesia: No Social History Social History Household Members Other:: [id number] Housing: House Are you a primary pet caregiver to a significant other at home: No Do you presently have visiting nurse or other home services: No Alcohol intake: never Patient Tobacco Use Status: Current everyday Tobacco user Tobacco use type: Cigarette Cigarettes Per Day: 4 Smoked in Last 30 Days: Yes e-Cigarette/Vaping Use: Never Used Patient Interested in Nicotine Replacement: Yes Second Hand Smoke Exposure: No Use of substances other than those prescribed or required for medical reasons: Yes Have you been hit, kicked, punched, or otherwise hurt by someone within the past year? If so, by whom?: No Are you DNR?: No Advance Directives: No Advance Directives Information Provided: Yes Advance Directives on File: No Recently lost weight without trying: Yes How much weight loss: 14-23 pounds Eating poorly because of decreased appetite: Yes Nutrition screen score: 5 Poor oral hygiene: No service: No Current occupational status: employed Current occupational exposures/hazards: No Cognitive needs: No Hearing needs: No Vision needs: No Meds Allergies Allergy/AdvReac Type Severity Reaction Status Date / Time No Known Allergies Allergy Verified 03/17/24 14:47 Exam Height,Weight and Vital Signs: Height 5 ft 7 in Weight 63.503 kg Last Vital Signs Pulse 87 04/04/24 11:57 Resp 16 04/04/24 11:57 BP 111/71 04/04/24 11:57 Pulse Ox 99 04/04/24 11:57 O2 Del Method Room Air 04/04/24 11:57 Pertinent Lab Results Pertinent Lab Results: Laboratory Tests 03/09/24 11:43 Sodium 142 Potassium 4.2 Chloride 105 BUN 9 Creatinine 0.75 Airway Mallampati Class: II TM Dist: >3cm Neck ROM: Full Loose/Missing/Broken Teeth: Yes (missing) Heart: RRR Lungs: CTAB Assessment and Plan Assessment Anesthesia Assessment: Anesthesia Plan Discussed, Smoking Cess. 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 Is going to decrease intake by half every day leading up to surgery to maintain 0-1 beers daily +cocaine use: last used 04/01/24, will abstain. 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 Motivated to decrease/abstain. 04/11/24: Patient's urine toxicology is positive for cocaine. Spoke with patient about risks of cocaine use and abstinence prior to surgery. Also discussed cutting back on alcohol use. Patient understands and agrees with plan to reschedule. Dr Herndon also spoke with patient. [facility] Past Medical History Medical History (Updated 04/04/24 @ 12:25 by Rachel Noel, RN) [place] (hard of hearing) Low back pain Housing insecurity Depression Anxiety Dizziness Weakness Numbness of legs Cocaine use Smoker Daily consumption of alcohol Mild major depression Hypovitaminosis D Rash and nonspecific skin eruption Pure hypercholesterolemia Right shoulder pain Left shoulder pain Urticaria Family History Family History Father Prostate cancer Colon cancer Mother FH: uterine cancer Maternal Grandmother Cancer Maternal Grandfather Cancer Paternal Grandmother Cancer Paternal Grandfather Cancer Surgical History Surgical History (Updated 04/04/24 @ 12:17 by Rachel Noel, RN) Hx of colonoscopy Social History Social History Household Members Other:: [id number] Housing: House Are you a primary pet caregiver to a significant other at home: No Do you presently have visiting nurse or other home services: No Alcohol intake: never Patient Tobacco Use Status: Current everyday Tobacco user Tobacco use type: Cigarette Cigarettes Per Day: 4 Smoked in Last 30 Days: Yes e-Cigarette/Vaping Use: Never Used Patient Interested in Nicotine Replacement: Yes Second Hand Smoke Exposure: No Use of substances other than those prescribed or required for medical reasons: Yes Have you been hit, kicked, punched, or otherwise hurt by someone within the past year? If so, by whom?: No Are you DNR?: No Advance Directives: No Advance Directives Information Provided: Yes Advance Directives on File: No Recently lost weight without trying: Yes How much weight loss: 14-23 pounds Eating poorly because of decreased appetite: Yes Nutrition screen score: 5 Poor oral hygiene: No service: No Current occupational status: employed Current occupational exposures/hazards: No Cognitive needs: No Hearing needs: No Vision needs: No Meds Allergies Allergy/AdvReac Type Severity Reaction Status Date / Time No Known Allergies Allergy Verified 03/17/24 14:47
[2024-04-04 13:49] LABS: Hematocrit 42.1 % (42.0-52.0); Hemoglobin 14.2 g/dl (14.0-18.0); Mean Corpuscular HGB Conc 33.7 g/dl (31.0-36.0); Mean Corpuscular Hemoglobin 31.6 pg (27.0-33.0); Mean Corpuscular Volume 93.8 fL (80.0-98.0); Mean Platelet Volume 10.5 fL (9.4-12.4); Platelet Count 285 X10*3/uL (160-400); Red Blood Count 4.49 X10*6/uL (4.60-5.80); Red Cell Distribution Width 12.4 % (11.0-16.0); White Blood Count 5.6 X10*3/uL (4.8-10.8)
[2024-04-11 06:53] LABS: Amphetamine Screen Urine Not Detected (Not Detect); Barbiturates, Urine Not Detected (Not Detect); Benzodiazepines Screen Urine Not Detected (Not Detect); Buprenorphine Scr Not Detected (Not Detect); Cannabinoid Screen Urine Not Detected (Not Detect); Cocaine Screen Urine POSITIVE (Not Detect); Fentanyl, urine Not Detected (Not Detect); Methadone Screen, Urine Not Detected (Not Detect); Opiate Screen Urine Not Detected (Not Detect); Oxycodone Screen Urine Not Detected (Not Detect); Phencyclidine Screen Urine Not Detected (Not Detect)
--- NOTE | 2024-04-11 07:38 | PC.NURSE ---
Patient admitted to using cocaine wednesday. Utox positive for cocaine. Dr. Pires, anesthesiologist and Dr. Herndon at bedside. patient procedure cancelled and will need to be rescheduled. patient aware and agreeable to plan.
--- NOTE | 2024-04-11 07:47 | PM.EVENT ---
Event Note Date of Service: 04/12/24 Event Note: Patient is scheduled for sigmoid resection for a suspicious lesion He has tested positive for cocaine The anesthesiologist cancel the case in view of this Abdomen is soft and benign He does not seem to be obstructed I had a long discussion with him about importance of not using cocaine, or any drugs as well as alcohol He will try to reschedule him for next week Time Spent With Patient Time: Total time managing care of this patient today ____ minutes.
== END ==
LOC: HO.SSS 04-18 13:31
PROVIDERS: Nurse Practitioner; PCP Internal Medicine; Visit Provider Surgery
DX: K63.89 Other specified diseases of intestine (principal); Z53.8 Procedure and treatment not carried out for other reasons; F14.10 Cocaine abuse, uncomplicated; F10.20 Alcohol dependence, uncomplicated; F17.210 Nicotine dependence, cigarettes, uncomplicated
CPT/HCPCS: 36415; 80307; 85027; 86850; 86900; 86901; 93005

== ENCOUNTER 2024-04-20 08:44 | Outpatient (BNV) | payer OTHER, SELFPAY | END 2024-04-20 11:23 | PROVIDERS: Admitting Provider Surgery; PCP Internal Medicine; Visit Provider Internal Medicine Cardiovascular Disease | DX: K63.89 Other specified diseases of intestine (principal); F10.90 Alcohol use, unspecified, uncomplicated | CPT/HCPCS: 93010 ==

== ENCOUNTER 2024-04-20 08:44 | Inpatient (IN) | payer OTHER, SELFPAY ==
--- NOTE | 2024-04-19 09:54 | P.CONAN_ITS ---
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 Is going to decrease intake by half every day leading up to surgery to maintain 0-1 beers daily +cocaine use: last used 04/01/24, will abstain. 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 Motivated to d ecrease/abstain. Prior DOS assess: 04/11/24: Patient's urine toxicology is positive for cocaine. Spoke with patient about risks of cocaine use and abstinence prior to surgery. Also discussed cutting back on alcohol use. Patient understands and agrees with plan to reschedule. Dr Herndon also spoke with patient. PMF Active Problems Active Problems: All Active Problems Colonic mass (Acute) Physical exam (Acute) Family history of colon cancer (Acute) Personal history of colonic polyps (Acute) Hospital discharge follow-up (Acute) Abnormal finding on CT scan (Acute) Abdominal pain (Acute) Encounter for drug screening (Acute) Hyperkalemia (Acute) Constipation (Acute) Screening for colon cancer (Acute) Blood in stool (Acute) Insomnia (Acute) Screening for prostate cancer (Acute) Depression with anxiety (Acute) Hypovitaminosis D (Acute) Rash and nonspecific skin eruption (Acute) Pure hypercholesterolemia (Acute) Right shoulder pain (Acute) Left shoulder pain (Acute) Urticaria (Acute) Past Medical History Medical History [place] (hard of hearing) Low back pain Housing insecurity Depression Anxiety Dizziness Weakness Numbness of legs Cocaine use Smoker Daily consumption of alcohol Mild major depression Hypovitaminosis D Rash and nonspecific skin eruption Pure hypercholesterolemia Right shoulder pain Left shoulder pain Urticaria Family History Family History Father Prostate cancer Colon cancer Mother FH: uterine cancer Maternal Grandmother Cancer Maternal Grandfather Cancer Paternal Grandmother Cancer Paternal Grandfather Cancer Family history of problems with anesthesia: No Surgical History Surgical History Hx of colonoscopy History of Problems with Anesthesia: No Social History Social History Household Members Other:: SEE NOTE Housing: House Are you a primary hospice home care coordinator to a significant other at home: No Do you presently have visiting nurse or other home services: No Alcohol intake: never Patient Tobacco Use Status: Current someday Tobacco user Tobacco use type: Cigarette Cigarettes Per Day: 4 Years Smoked: 18 Smoked in Last 30 Days: Yes e-Cigarette/Vaping Use: Never Used Second Hand Smoke Exposure: No Use of substances other than those prescribed or required for medical reasons: Yes Substance Use Frequency: Occasionally Have you been hit, kicked, punched, or otherwise hurt by someone within the past year? If so, by whom?: No Are you DNR?: No Advance Directives: No Advance Directives Information Provided: No Advance Directives on File: No Recently lost weight without trying: No How much weight loss: Not applicable Eating poorly because of decreased appetite: No Nutrition screen score: 0 Nutrition Risks: No Nutritional Risk Poor oral hygiene: No service: No Current occupational status: employed Current occupational exposures/hazards: No Cognitive needs: No Hearing needs: No Vision needs: No Meds Allergies Allergy/AdvReac Type Severity Reaction Status Date / Time No Known Allergies Allergy Verified 04/20/24 10:47 Home Medications ?Medication ?Instructions ?Recorded ?Confirmed ?Last Taken ?Type No Known Home Meds 04/20/24 04/20/24 Unknown History Exam Height,Weight and Vital Signs: Height 5 ft 7 in Weight 63.503 kg Last Vital Signs Pulse 87 04/04/24 11:57 Resp 16 04/04/24 11:57 BP 111/71 04/04/24 11:57 Pulse Ox 99 04/04/24 11:57 O2 Del Method Room Air 04/04/24 11:57 Pertinent Lab Results Pertinent Lab Results: Laboratory Tests 03/09/24 11:43 Sodium 142 Potassium 4.2 Chloride 105 BUN 9 Creatinine 0.75 Laboratory Tests 04/04/24 13:20 WBC 5.6 Hgb 14.2 Hct 42.1 Plt Count 285 Narrative Narrative: EKG 03/2024 Vent. Rate : 064 BPM Atrial Rate : 064 BPM P-R Int : 142 ms QRS Dur : 074 ms QT Int : 390 ms P-R-T Axes : 056 063 050 degrees QTc Int : 402 ms Normal sinus rhythm Normal ECG When compared with ECG of 03-JAN-2016 21:25, No significant change was found Airway Mallampati Class: II TM Dist: >3cm Neck ROM: Full Loose/Missing/Broken Teeth: Yes (missing) Heart: RRR Lungs: CTAB Assessment and Plan Assessment Anesthesia Assessment: Chart Reviewed Final Anesthetic Review Family History of Problems with Anesthesia: No History of Problems with Anesthesia: No Documented by User: Madison Pires MD 04/20/24 11:59 HPI - Anesthesia Eval Consult details Narrative: 58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 Is going to decrease intake by half every day leading up to surgery to maintain 0-1 beers daily +cocaine use: last used 04/01/24, will abstain. 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 Motivated to decrease/abstain. Prior DOS assess: 04/11/24: Patient's urine toxicology is positive for cocaine. Spoke with patient about risks of cocaine use and abstinence prior to surgery. Also discussed cutting back on alcohol use. Patient understands and agrees with plan to reschedule. Dr Herndon also spoke with patient. 04/20/24: Patient back for surgery. Urine tox screen negative for drugs today. Patient however c/o 10/10 chest pain. 12lead ekg NSR 67. No ischemia PMFSH Active Problems Active Problems: All Active Problems Colonic mass (Acute) Physical exam (Acute) Family history of colon cancer (Acute) Personal history of colonic polyps (Acute) Hospital discharge follow-up (Acute) Abnormal finding on CT scan (Acute) Abdominal pain (Acute) Encounter for drug screening (Acute) Hyperkalemia (Acute) Constipation (Acute) Screening for colon cancer (Acute) Blood in stool (Acute) Insomnia (Acute) Screening for prostate cancer (Acute) Depression with anxiety (Acute) Hypovitaminosis D (Acute) Rash and nonspecific skin eruption (Acute) Pure hypercholesterolemia (Acute) Right shoulder pain (Acute) Left shoulder pain (Acute) Urticaria (Acute) Smoker- last cigarette yesterday ETOH - last 7 days ago Chest pain- 12 kead ekg normal. Patient thinks musculoskeletal- slept wrong Past Medical History Medical History [place] ([place] of hearing) Low back pain Housing insecurity Depression Anxiety Dizziness Weakness Numbness of legs Cocaine use Smoker Daily consumption of alcohol Mild major depression Hypovitaminosis D Rash and nonspecific skin eruption Pure hypercholesterolemia Right shoulder pain Left shoulder pain Urticaria Family History Family History Father Prostate cancer Colon cancer Mother FH: uterine cancer Maternal Grandmother Cancer Maternal Grandfather Cancer Paternal Grandmother Cancer Paternal Grandfather Cancer Family history of problems with anesthesia: No Surgical History Surgical History Hx of colonoscopy History of Problems with Anesthesia: No Social History Social History Household Members Other:: SEE NOTE Housing: House Are you a primary hospice home care coordinator to a significant other at home: No Do you presently have visiting nurse or other home services: No Alcohol intake: never Patient Tobacco Use Status: Current someday Tobacco user Tobacco use type: Cigarette Cigarettes Per Day: 4 Years Smoked: 18 Smoked in Last 30 Days: Yes e-Cigarette/Vaping Use: Never Used Second Hand Smoke Exposure: No Use of substances other than those prescribed or required for medical reasons: Yes Substance Use Frequency: Occasionally Have you been hit, kicked, punched, or otherwise hurt by someone within the past year? If so, by whom?: No Are you DNR?: No Advance Directives: No Advance Directives Information Provided: No Advance Directives on File: No Recently lost weight without trying: No How much weight loss: Not applicable Eating poorly because of decreased appetite: No Nutrition screen score: 0 Nutrition Risks: No Nutritional Risk Poor oral hygiene: No service: No Current occupational status: employed Current occupational exposures/hazards: No Cognitive needs: No Hearing needs: No Vision needs: No Meds Allergies Allergy/AdvReac Type Severity Reaction Status Date / Time No Known Allergies Allergy Verified 04/20/24 10:47 Home Medications ?Medication ?Instructions ?Recorded ?Confirmed ?Last Taken ?Type No Known Home Meds 04/20/24 04/20/24 Unknown History Exam Height,Weight and Vital Signs: Height 5 ft 7 in Weight 63.503 kg Last Vital Signs Pulse 87 04/04/24 11:57 Resp 16 04/04/24 11:57 BP 111/71 04/04/24 11:57 Pulse Ox 99 04/04/24 11:57 O2 Del Method Room Air 04/04/24 11:57 Vital Signs Temp Pulse Resp BP Pulse Ox O2 Del Method 04/20/24 11:03 97.9 F 79 16 112/68 99 Room Air Pertinent Lab Results Pertinent Lab Results: Laboratory Tests 03/09/24 11:43 Sodium 142 Potassium 4.2 Chloride 105 BUN 9 Creatinine 0.75 Laboratory Tests 04/04/24 13:20 WBC 5.6 Hgb 14.2 Hct 42.1 Plt Count 285 Vital Signs Temp Pulse Resp BP Pulse Ox O2 Del Method 04/20/24 11:03 97.9 F 79 16 112/68 99 Room Air Airway Mallampati Class: II TM Dist: >3cm Neck ROM: Full Loose/Missing/Broken Teeth: Yes (Missing teeth in back top and bottom right and left. Denies broken or loose teeth) Assessment and Plan Assessment Anesthesia Assessment: Anesthesia Plan Discussed and Chart Reviewed Final Anesthetic Review Family History of Problems with Anesthesia: No History of Problems with Anesthesia: No NPO: Yes ASA Class: III Final Preanesthetic Review: No Changes in Pt Med Stat, Meds/Allgs Chart Reviewed, Consent Obtained/Reviewed and Anes Risks/Benef Reviewed Patient Risk: Intermediate Procedure Risk: Intermediate Assessment/Block/Sedation in SS: Assess/Block/Sedation-SS Anesthetic Plan Anesthetic Plan: Other (Bilateral TAP vs Rectus sheath block) Disposition: Standard PACU and Inp. Admit - Standard Bed
[2024-04-20] VITALS (9 sets, daily range): BP systolic 112–146; BP diastolic 67–85; PULSE 64–80; RESP 14–16; TEMP 36.1–37.1; O2SAT 93–100; BMI 20.8
--- NOTE | 2024-04-20 | ECG_ITS ---
Test Reason : preop Blood Pressure : / mmHG Vent. Rate : 067 BPM Atrial Rate : 067 BPM P-R Int : 146 ms QRS Dur : 072 ms QT Int : 394 ms P-R-T Axes : 046 045 045 degrees QTc Int : 416 ms Normal sinus rhythm Normal ECG When compared with ECG of 04-APR-2024 12:55, No significant change was found Referred By: Madison Pires Electronically Signed By:TIARA SAENZ MD
[2024-04-20 10:23] LABS: Amphetamine Screen Urine Not Detected (Not Detect); Barbiturates, Urine Not Detected (Not Detect); Benzodiazepines Screen Urine Not Detected (Not Detect); Buprenorphine Scr Not Detected (Not Detect); Cannabinoid Screen Urine Not Detected (Not Detect); Cocaine Screen Urine Not Detected (Not Detect); Fentanyl, urine Not Detected (Not Detect); Methadone Screen, Urine Not Detected (Not Detect); Opiate Screen Urine Not Detected (Not Detect); Oxycodone Screen Urine Not Detected (Not Detect); Phencyclidine Screen Urine Not Detected (Not Detect)
--- NOTE | 2024-04-20 10:43 | PHA.MEDREC ---
Pharmacy Consult ? Medication Reconciliation Pharmacy has completed the medication reconciliation. Spoke with pt at bedside prior to surgery with bun panner services to confirm pt takes no medications at home.
[2024-04-20] MEDS: Lactated Ringers 1,000 ML 100 ML IVCONT (11:01)
--- NOTE | 2024-04-20 11:45 | MHC.SHP ---
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 Relevant Family History (Specify if Yes): No Relevant Social History: Other (specify) (Drug use, alcohol abuse) Present Medications: see Short Stay Collaborative assessment Medical History: Significant History (Depression and anxiety, alcohol use, drug abuse) History of Previous Operations: No relevant previous surgery Allergies: Allergies Allergy/AdvReac Type Severity Reaction Status Date / Time No Known Allergies Allergy Verified 04/20/24 10:47 Review of Systems Sugical H&P ROS: Negative: Constitution, Cardiovascular, Respiratory, Gastrointestinal and Genitourinary Exam Surgical H&P Exam: Normal: HEENT, Normal: Heart, Normal: Lungs and Normal: Abdomen Plan I have reviewed the history and physical and performed a pertinent physical examination on my patient. No changes have occurred unless specified. Time Spent With Patient Time: Total time managing care of this patient today ____ minutes.
--- NOTE | 2024-04-20 12:08 | PC.NURSE ---
Patient in preop. Deputy Building Guard at bedside. Patient finished bowel prep as prescribed. No solid food all day yesterday, clear liquids only. Last bowel movement still soft and brown per patient. Dr. Herndon and Dr. Pires made aware. No new orders at this time. During PAT assessment, patient voiced that he will be homeless in a week, I am getting kicked out of my current apartment with my family, they are kicking me out . Patient became emotional, reassurance offered. Dr. Herndon made aware of this and need for social media project manager upon discharge from hospital. Patient also voiced in preop that he is having 10/10 chest/muscle pain on right side. Patient grimacing and holding chest. Patient states that pain feels muscular, does not feel like heart pain . Patient states I slept wrong . Dr. Pires made aware and at bedside. EKG obtained per order, showing NSR. Patient currently resting quietly with eyes closed. No new orders at this time.
--- NOTE | 2024-04-20 14:38 | W.PM.OPN ---
Operative Note Operative Note Date of Service: 04/20/24 Narrative: Preop diagnosis: Sigmoid lesion with a high-grade dysplasia on biopsy Postop diagnosis: The same Procedure: Hand assisted laparoscopic sigmoid resection, with end-to-end anastomosis, flexible sigmoidoscopy Surgeon: Clem Herndon MD assistant director of financial aid: CLAUDIO Montalvo The patient is a 58-year-old male who has been diagnosed to have a sigmoid mass on imaging as well as on colonoscopy. This was at level 40 cm and previous biopsy showed high-grade dysplasia. This was also partially obstructing. He understood the technique of hand assisted laparoscopic sigmoid resection. He was aware of the risks, benefits, and alternatives He was brought to the operating room. He was placed in modified lithotomy position under general anesthesia via endotracheal tube. A TAP block had been done earlier by the anesthesiologist. A Rincon catheter was inserted. The abdomen and the perineum were prepped and draped in the usual sterile fashion. A surgical time-out was done The patient received Cefotan 2 g IV preoperatively I made a short low midline incision with a blade 15. This was carried down through the full-thickness of the skin and subcutaneous fat with electrocautery. The fascia was incised. The peritoneum was entered. An Evaristo wound retractor was placed. The GelPort was attached along with an insufflating port. The peritoneal cavity was insufflated to 15 mm Hg. With laparoscopic visualization using a 10 mm 30 degree scope, I proceeded to insert a 5/12 mm port in the epigastric area below the subcostal margin. A 5/12 mm port was also introduced through a small incision in the right lower quadrant. I removed the insufflating port. The patient was placed in a steep head-down position. I placed my hand through the GelPort. I retracted the bowel loops away from the pelvis. I was able to visualize the rectum. I followed this and traced the sigmoid. The mass was palpable in the mid sigmoid. There was note of inked markings in the area. The patient was also placed in a right side down position. I mobilized the colon along the white line of Toldt using the LigaSure. I opened up the peritoneal lining and proceeded to divide this all the way to the proximal left colon. This allowed mobilization of the left colon. I continued to mobilize the distal left colon in the sigmoid by dividing the peritoneum with LigaSure in the same fashion. There was note of dense adhesions in the mid sigmoid tethering this segment to the pelvic sidewall. We had to carefully dissect this again with the LigaSure. This part of the procedure took some time until was able to separate this segment. This was adjacent to the palpable tumor I continued to mobilize the distal sigmoid using the LigaSure to divide the peritoneum. I also mobilize the right side of the sigmoid and the rectosigmoid by dividing the peritoneum with the LigaSure as well. At this point, the sigmoid was very mobile. It appeared that we had good length to reach the pelvis with planned points of transection. I created a mesenteric window at the rectosigmoid using the LigaSure. I divided this segment with the Endo-RAVI 60 mm stapler I created a mesenteric window at the proximal sigmoid as well with adequate margins from the palpable tumor. I transected this proximal sigmoid near the left colon using the Endo-RAVI stapler 60 mm along this mesenteric defect I then proceeded to transect the attached mesentery in a high ligation fashion. I divided the mesentery from proximal to distal using the LigaSure. There was note of a palpable medical likely representing the major sigmoid vessels so I proceeded to gently define this and divided this with the LigaSure as well We were able to achieve good hemostasis I completed dissection of the attached mesentery until we completed resection. We included as much of the lymphatic basin as possible as an oncologic resection I retrieved the specimen through the incision and marked the distal end with a stitch I pulled up the proximal sigmoid. I excised the staple line with Oconnor scissors. I entered the lumen. I dilated this to 28 mm using the dilator. Therefore opened up the 28 mm EEA stapler. I positioned the anvil. I applied a pursestring using a Prolene 2-0 and tightened this allowed the anvil. I replaced this stump back into the peritoneal cavity. The educational assistant teacher then proceeded to insert the dilator through the anus into the staple line of the rectal pouch. This was easily seen laparoscopically. The circular stapler apparatus was then inserted through the anus into the rectal pouch. I targeted the wall anterior to the staple line. The spike was activated. I attached the anvil we despite until this locked in place. We then proceeded to close the E EEA circular stapler completely and this was fired. We then proceeded to pull out the circular stapler. The anastomotic donuts were examined and these were intact We insufflated air through the anus with the anastomotic line immersed in irrigating fluid. There was no bubbling on this. The staple line itself appeared intact and not ischemic He was a little bit of tension on this remaining sigmoid so I proceeded to mobilize more of the left colon by dividing the rest of the ligamentous attachments along the white line of Toldt. Eventually, there was note of good length without any tension on the anastomosis We then proceeded to do the flexible sigmoidoscopy. I inserted the scope through the anus and advanced gently with insufflation until the staple line was seen. This appeared intact and did not appear ischemic at all. There was no evidence of any leak There was note of large amount of stool in the rectum in the sigmoid. However, the staple line itself appeared clean after insufflation and there was no spillage. We proceeded to therefore removed the flexible sigmoidoscope completely Closed the fascia with a running Maxon stitch. At this point we had changed gloves completely I examined the fascial closure laparoscopically. There was no bowel loops caught by the sutures. There was no bleeding or any evidence of any bowel injury We therefore proceeded to withdraw all ports and desufflated through the port sites All skin incisions were closed with skin reyna after irrigation Dressings were applied. The procedure was completed. The patient tolerated the procedure well. There were no immediate complications. Initial final counts of sponges and instruments were correct. Estimated blood loss was about 100 cc The patient was extubated without difficulty and transferred to the recovery room with stable vital signs. Colon Resection Tumor location: Sigmoid colon Extent of lymphovascular resection Sigmoid colon: from proximal sigmoid to rectosigmoid junction; high ligation of LOAN Procedure performed with curative intent?: Yes General Surg. - Synoptic Notes Colon Resection Tumor location: Sigmoid colon Extent of Lymphovascular Resection: Sigmoid colon: from proximal sigmoid to rectosigmoid junction; high ligation of LOAN Procedure performed with curative intent?: Yes
--- NOTE | 2024-04-20 16:05 | PM.EVENT ---
Event Note Date of Service: 04/20/24 Event Note: seen postop s/p sigmoid resection seems to have good pain control stable VS good UO ,clear abd soft continue pain mgt Hospitalist consult - hx of drug use, ETOH family updated at [phone] Time Spent With Patient Time: Total time managing care of this patient today ____ minutes.
[2024-04-20] MEDS: HYDROmorphone HCl 0.5 MG/0.5 ML SYRINGE IVPUSH ×2 (16:14→19:33)
[2024-04-20] MEDS: Acetaminophen 1,000 MG/100 ML PIGGYBACK 400 MG IV (18:13)
--- NOTE | 2024-04-20 18:24 | P.CONHOSP_ITS ---
History of Present Illness Data of Consult Service Date: 04/20/24 Primary Care Provider: Lauren Hansen MD HPI 58 year old male with who had colonoscopy in january and found to have Partially obstructing colon mass in sigmoid colon. He underwent sigmoid resection today and is being seen post operatively d/t concern for alcohol and drug use. He denies recent drug. Urine tox screen is negative. He states that he drink up to $20 worth of budligh every 2 to 3 days. He last drank 3 days ago. He reports no prior history of alcohol withdrawal. He has no sings or symptoms of alcohol withdrawal at the moment. Review of Systems Review of Systems: Gen: no fever Resp: no sob, no cough CV: no chest, no MCCALL, no leg edema GI: No n/v, abd pain from surgery Neuro: No confusion [facility] [place] Medical History [place] (hard of hearing) Low back pain Housing insecurity Depression Anxiety Dizziness Weakness Numbness of legs Cocaine use Smoker Daily consumption of alcohol Mild major depression Hypovitaminosis D Rash and nonspecific skin eruption Pure hypercholesterolemia Right shoulder pain Left shoulder pain Urticaria Family History Father Prostate cancer Colon cancer Mother FH: uterine cancer Maternal Grandmother Cancer Maternal Grandfather Cancer Paternal Grandmother Cancer Paternal Grandfather Cancer Surgical History Hx of colonoscopy Social History Household Members: Children Household Members Other:: SEE NOTE Housing: Apartment Are you a primary career representative to a significant other at home: No Do you presently have visiting nurse or other home services: No Alcohol intake: never Patient Tobacco Use Status: Current someday Tobacco user Tobacco use type: Cigarette Cigarettes Per Day: 4 Years Smoked: 18 Smoked in Last 30 Days: Yes e-Cigarette/Vaping Use: Never Used Patient Interested in Nicotine Replacement: No (nicotine patch) Patient Given Instructions on How to Stop Smoking: No Second Hand Smoke Exposure: No Use of substances other than those prescribed or required for medical reasons: Yes Substance Use Type: Crack/Cocaine Substance Use Frequency: Occasionally Last Used Substance Other:: Last Wednesday Currently Displaying Signs/Symptoms of Drug Intoxication Withdrawal: No Have you been hit, kicked, punched, or otherwise hurt by someone within the past year? If so, by whom?: No Do you feel safe in your current relationship?: No Current Relationship Is there a partner from a previous relationship who is making you feel unsafe now?: No Are you made to feel afraid or neglected: No Are you DNR?: No Advance Directives: No Advance Directives Information Provided: No Advance Directives on File: No Do you have a plan to hurt others: No Plan Recently lost weight without trying: Yes How much weight loss: 24-33 pounds Eating poorly because of decreased appetite: Yes Nutrition screen score: 6 Nutrition Risks: No Nutritional Risk Poor oral hygiene: No service: No Current occupational status: employed Current occupational exposures/hazards: No Cognitive needs: No Hearing needs: No Vision needs: No Meds Allergies Allergy/AdvReac Type Severity Reaction Status Date / Time No Known Allergies Allergy Verified 04/20/24 10:47 Active Medications: Current Medications Al Hydroxide/Mg Hydroxide (Magnesium Hydrox/Alum Hydrox 30 Ml Oral.Susp) 30 ml PO DAILY PRN PRN Reason: heartburn Hydromorphone HCl (Hydromorphone Hcl 0.5 Mg/0.5 Ml Syringe) 0.5 mg IVPUSH Q3H PRN; Protocol PRN Reason: Pain, Severe (Pain Scale 7-10) Last Admin: 04/20/24 16:14 Dose: 0.5 mg Lactated Ringer's (Lr) 1,000 mls @ 100 mls/hr IVCONT .Q10H [facility] Last Admin: 04/20/24 11:01 Dose: 100 mls/hr Acetaminophen (Ofirmev) 1,000 mg in 100 mls @ 400 mls/hr IV Q6H [facility] Last Admin: 04/20/24 18:13 Dose: 400 mls/hr Influenza Virus Vaccine (Flu Vacc [id number](6mos Up)/Pf 0.5 Ml Syringe) 0.5 ml IM .ONCE ONE Stop: 04/21/24 09:01 Melatonin (Melatonin 3 Mg Tablet) 6 mg PO BEDTIME PRN PRN Reason: Insomnia Ondansetron HCl (Ondansetron Hcl 4 Mg/2 Ml Vial) 4 mg IVPUSH Q6H PRN PRN Reason: Nausea and Vomiting Oxycodone HCl (Oxycodone Hcl Immed Release 5 Mg Tablet) 5 mg PO Q4H PRN PRN Reason: Pain, Moderate(Pain Scale 4-6) Sodium Chloride (0.9 % Sodium Chloride Flush 3 Ml Syringe) 3 ml IVFLUSH QSHIFT [facility] Last Admin: 04/20/24 16:41 Dose: Not Given Home Medications ?Medication ?Instructions ?Recorded ?Confirmed ?Last Taken ?Type No Known Home Meds 04/20/24 04/20/24 Unknown History Physical Exam Vital Signs and Narrative: Vital Signs: Last Vital Signs Temp 97.1 F 04/20/24 16:00 Pulse 75 04/20/24 16:00 Resp 16 04/20/24 16:00 BP 144/80 H 04/20/24 16:00 Pulse Ox 93 04/20/24 16:00 O2 Del Method Room Air 04/20/24 16:00 BMI result Body Mass Index 20.8 Const: Other: General: AO X 3, no acute distress Resp: CTA bilateral CVS: S1,S2,RRR GI: +BS, NT, no distention Skin: No rash Neuro: motor grossly intact Psych: appropriate affect Results Labs Labs: Laboratory Results - last 24 hr 04/20/24 04/20/24 10:04 10:27 Urine Opiates Screen Not Detected Ur Buprenorphine Scrn Not Detected Ur Oxycodone Screen Not Detected Urine Methadone Screen Not Detected Urine Fentanyl Screen Not Detected Ur Barbiturates Screen Not Detected Ur Phencyclidine Scrn Not Detected Ur Amphetamines Screen Not Detected U Benzodiazepines Scrn Not Detected Urine Cocaine Screen Not Detected U Marijuana (THC) Screen Not Detected Blood Type A Negative Antibody Screen NEGATIVE Assessment and Plan (1) Colonic mass: Status: Acute (2) Alcohol use disorder: Status: Acute Plan 58/ m with etoh use, h/o substance 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 Alcohol use disorder, no sings of withdrawal but high risk for withdrawal and recommend phenobarbital proptoal to prevent withdrawal folic acid and thiamine supplement addiction med consult s/p sigmoid resection management per surger elevated bp, no h/o htn, monitor
[2024-04-20] MEDS: 0.9 % Sodium Chloride Flush 3 ML SYRINGE IVFLUSH (19:33)
[2024-04-21] VITALS (9 sets, daily range): BP systolic 101–132; BP diastolic 53–66; PULSE 59–70; RESP 13–17; TEMP 36.3–36.9; O2SAT 95–99; BMI 20.8
[2024-04-21] MEDS: Lactated Ringers 1,000 ML 100 ML IVCONT (00:22)
[2024-04-21] MEDS: Acetaminophen 1,000 MG/100 ML PIGGYBACK 400 MG IV ×4 (01:41→18:07)
[2024-04-21] MEDS: HYDROmorphone HCl 0.5 MG/0.5 ML SYRINGE IVPUSH ×5 (05:04→23:34)
--- NOTE | 2024-04-21 05:08 | PC.NURSE ---
First two doses phenobarb held for low BP and/or lower RR. Concern with administering while patient is post op and also in need of IV pain medication. No symptoms of withdrawl.
--- NOTE | 2024-04-21 07:54 | P.PNIM_ITS ---
Subjective Subjective Date of Service: 04/21/24 Interval History: f/u on med consult phenobarb not given d/t low respiration no sings of withdrawal Physical Exam 2 Vital Signs: Vital Signs: Last Vital Signs Temp 97.5 F 04/21/24 07:41 Pulse 70 04/21/24 07:41 Resp 16 04/21/24 07:41 BP 101/53 L 04/21/24 07:41 Pulse Ox 99 04/21/24 07:41 O2 Del Method Room Air 04/21/24 07:41 BMI result Body Mass Index 20.8 Const: Other: General: AO X 3, no acute distress Resp: CTA bilateral CVS: S1,S2,RRR GI: +BS, incisional site tenderness, no distention Skin: No rash Neuro: motor grossly intact Psych: appropriate affect Objective Data Active Medications Al Hydroxide/Mg Hydroxide (Magnesium Hydrox/Alum Hydrox 30 Ml Oral.Susp) 30 ml PO DAILY PRN PRN Reason: heartburn Folic Acid (Folic Acid 1 Mg Tablet) 1 mg PO DAILY COUNTS INCLUDE 234 BEDS AT THE [facility] Stop: 04/22/24 09:01 Last Admin: 04/20/24 22:09 Dose: Not Given Documented By: ANGELICA Non-Admin Reason: Patient Asleep Hydromorphone HCl (Hydromorphone Hcl 0.5 Mg/0.5 Ml Syringe) 0.5 mg IVPUSH Q3H PRN; Protocol PRN Reason: Pain, Severe (Pain Scale 7-10) Last Admin: 04/21/24 05:04 Dose: 0.5 mg Documented By: FABY Lactated Ringer's (Lr) 1,000 mls @ 100 mls/hr IVCONT .Q10H COUNTS INCLUDE 234 BEDS AT THE [facility] Last Admin: 04/21/24 00:22 Dose: 100 mls/hr Documented By: FABY Acetaminophen (Ofirmev) 1,000 mg in 100 mls @ 400 mls/hr IV Q6H COUNTS INCLUDE 234 BEDS AT THE [facility] Last Infusion: 04/21/24 01:59 Dose: Infused Documented By: FABY Influenza Virus Vaccine (Flu Vacc [id number](6mos Up)/Pf 0.5 Ml Syringe) 0.5 ml IM .ONCE ONE Stop: 04/21/24 09:01 Melatonin (Melatonin 3 Mg Tablet) 6 mg PO BEDTIME PRN PRN Reason: Insomnia Ondansetron HCl (Ondansetron Hcl 4 Mg/2 Ml Vial) 4 mg IVPUSH Q6H PRN PRN Reason: Nausea and Vomiting Oxycodone HCl (Oxycodone Hcl Immed Release 5 Mg Tablet) 5 mg PO Q4H PRN PRN Reason: Pain, Moderate(Pain Scale 4-6) Pharmacy Consult (Consult Rx Etoh Phenob Im/Po) 1 each MISCELLANE ONCE PRN; Protocol PRN Reason: Consult order Phenobarbital (Phenobarbital 15 Mg Tablet) 45 mg PO BID COUNTS INCLUDE 234 BEDS AT THE [facility]; Protocol Stop: 04/22/24 21:01 Phenobarbital (Phenobarbital 30 Mg Tablet) 30 mg PO BID COUNTS INCLUDE 234 BEDS AT THE [facility]; Protocol Stop: 04/24/24 21:01 Phenobarbital (Phenobarbital 30 Mg Tablet) 30 mg PO DAILY COUNTS INCLUDE 234 BEDS AT THE [facility]; Protocol Stop: 04/26/24 09:01 Sodium Chloride (0.9 % Sodium Chloride Flush 3 Ml Syringe) 3 ml IVFLUSH QSHICHI [facility] Last Admin: 04/20/24 19:33 Dose: 3 ml Documented By: ANGELICA Thiamine HCl (Thiamine Hcl 100 Mg Tablet) 100 mg PO DAILY COUNTS INCLUDE 234 BEDS AT THE [facility] Stop: 04/22/24 09:01 Last Admin: 04/20/24 22:09 Dose: Not Given Documented By: ANGELICA Non-Admin Reason: Patient Asleep Labs 04/21/24 08:40 04/21/24 08:40 Labs: Laboratory Results - last 24 hr 04/20/24 04/20/24 10:04 10:27 Urine Opiates Screen Not Detected Ur Buprenorphine Scrn Not Detected Ur Oxycodone Screen Not Detected Urine Methadone Screen Not Detected Urine Fentanyl Screen Not Detected Ur Barbiturates Screen Not Detected Ur Phencyclidine Scrn Not Detected Ur Amphetamines Screen Not Detected U Benzodiazepines Scrn Not Detected Urine Cocaine Screen Not Detected U Marijuana (THC) Screen Not Detected Blood Type A Negative Antibody Screen NEGATIVE Assessment and Plan (1) Alcohol use disorder: Status: Acute (2) Colonic mass: Status: Acute Plan 58/ m with etoh use, h/o substance 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 Alcohol use disorder, no sings of withdrawal, marginal bp and concern for low rr so hold phenobarb, add CIWA folic acid and thiamine supplement addiction med consult s/p sigmoid resection management per surgery elevated bp, no h/o htn, monitor dvt prophylaxis--deferred to surgery Quality Stroke Does the patient have a stroke diagnosis?: No VTE Prior VTE?: No VTE Risk Level:: Medical - moderate - high VTE Device Contraindication: N/A - Device Ordered VTE Drug Contraindication: N/A - Med Ordered
--- NOTE | 2024-04-21 07:56 | P.PNGS_ITS ---
Subjective Subjective Date of Service: 04/21/24 <Carmela Montalvo PA-C - Last Filed: 04/21/24 07:59> 04/21/24 <Clem Herndon MD - Last Filed: 04/21/24 08:59> Interval history: Reports bloating and discomfort from gas pains. States he is passing flatus. Has not been OOB yet. Tolerating liquids without nausea/vomiting. < Carmela Montalvo PA-C - Last Filed: 04/21/24 07:59> Physical Exam 2 Vital Signs: Vital Signs: Last Vital Signs Temp 97.5 F 04/21/24 07:41 Pulse 70 04/21/24 07:41 Resp 16 04/21/24 07:41 BP 101/53 L 04/21/24 07:41 Pulse Ox 99 04/21/24 07:41 O2 Del Method Room Air 04/21/24 07:41 BMI result Body Mass Index 20.8 <Carmela Montalvo PA-C - Last Filed: 04/21/24 07:59> Const: General: comfortable, no acute distress and alert <Carmela Montalvo PA-C - Last Filed: 04/21/24 07:59> Orientation/consciousness: patient oriented x3 <Carmela Montalvo PA-C - Last Filed: 04/21/24 07:59> Resp: Effort & Inspection: normal respiratory effort <Carmela Montalvo PA-C - Last Filed: 04/21/24 07:59> GI: Inspection: Yes distended and Yes incision (dressings intact) < Carmela Montalvo PA-C - Last Filed: 04/21/24 07:59> Palpation (GI): Soft to palpation, Tenderness to palpation present (GI) and no guarding <Carmela Montalvo PA-C - Last Filed: 04/21/24 07:59> Percussion: Yes tympanic to percussion <HELADIO Akers Last Filed: 04/21/24 07:59> Skin: General skin exam: no rashes or lesions noted <Carmela Montalvo PA-C - Last Filed: 04/21/24 07:59> Neuro: General: patient oriented x3 and moves all extremities <Carmela Montalvo PA-C - Last Filed: 04/21/24 07:59> Objective Data Active Medications Al Hydroxide/Mg Hydroxide (Magnesium Hydrox/Alum Hydrox 30 Ml Oral.Susp) 30 ml PO DAILY PRN PRN Reason: heartburn Folic Acid (Folic Acid 1 Mg Tablet) 1 mg PO DAILY [facility] Stop: 04/22/24 09:01 Last Admin: 04/20/24 22:09 Dose: Not Given Documented By: ANGELICA Non-Admin Reason: Patient Asleep Hydromorphone HCl (Hydromorphone Hcl 0.5 Mg/0.5 Ml Syringe) 0.5 mg IVPUSH Q3H PRN; Protocol PRN Reason: Pain, Severe (Pain Scale 7-10) Last Admin: 04/21/24 05:04 Dose: 0.5 mg Documented By: FABY Lactated Ringer's (Lr) 1,000 mls @ 100 mls/hr IVCONT .Q10H [facility] Last Admin: 04/21/24 00:22 Dose: 100 mls/hr Documented By: FABY Acetaminophen (Ofirmev) 1,000 mg in 100 mls @ 400 mls/hr IV Q6H [facility] Last Infusion: 04/21/24 01:59 Dose: Infused Documented By: FABY Influenza Virus Vaccine (Flu Vacc [id number](6mos Up)/Pf 0.5 Ml Syringe) 0.5 ml IM .ONCE ONE Stop: 04/21/24 09:01 Melatonin (Melatonin 3 Mg Tablet) 6 mg PO BEDTIME PRN PRN Reason: Insomnia Ondansetron HCl (Ondansetron Hcl 4 Mg/2 Ml Vial) 4 mg IVPUSH Q6H PRN PRN Reason: Nausea and Vomiting Oxycodone HCl (Oxycodone Hcl Immed Release 5 Mg Tablet) 5 mg PO Q4H PRN PRN Reason: Pain, Moderate(Pain Scale 4-6) Pharmacy Consult (Consult Rx Etoh Phenob Im/Po) 1 each MISCELLANE ONCE PRN; Protocol PRN Reason: Consult order Phenobarbital (Phenobarbital 15 Mg Tablet) 45 mg PO BID [facility]; Protocol Stop: 04/22/24 21:01 Phenobarbital (Phenobarbital 30 Mg Tablet) 30 mg PO BID [facility]; Protocol Stop: 04/24/24 21:01 Phenobarbital (Phenobarbital 30 Mg Tablet) 30 mg PO DAILY [facility]; Protocol Stop: 04/26/24 09:01 Sodium Chloride (0.9 % Sodium Chloride Flush 3 Ml Syringe) 3 ml IVFLUSH QSHIFT [facility] Last Admin: 04/20/24 19:33 Dose: 3 ml Documented By: ANGELICA Thiamine HCl (Thiamine Hcl 100 Mg Tablet) 100 mg PO DAILY [facility] Stop: 04/22/24 09:01 Last Admin: 04/20/24 22:09 Dose: Not Given Documented By: ANGELICA Non-Admin Reason: Patient Asleep <Carmela Montalvo PA-C - Last Filed: 04/21/24 07:59> Labs CBC & Chem 7: 04/21/24 08:40 04/21/24 08:40 <Carmela Montalvo PA-C - Last Filed: 04/21/24 07:59> Labs: Laboratory Results - last 24 hr 04/20/24 04/20/24 10:04 10:27 Urine Opiates Screen Not Detected Ur Buprenorphine Scrn Not Detected Ur Oxycodone Screen Not Detected Urine Methadone Screen Not Detected Urine Fentanyl Screen Not Detected Ur Barbiturates Screen Not Detected Ur Phencyclidine Scrn Not Detected Ur Amphetamines Screen Not Detected U Benzodiazepines Scrn Not Detected Urine Cocaine Screen Not Detected U Marijuana (THC) Screen Not Detected Blood Type A Negative Antibody Screen NEGATIVE <Carmela Montalvo PA-C - Last Filed: 04/21/24 07:59> Procedures Date of Service Date of Service: 04/21/24 <Carmela Montalvo PA-C - Last Filed: 04/21/24 07:59> 04/21/24 <Clem Herndon MD - Last Filed: 04/21/24 08:59> Progress Note: A&P Assessment and plan (1) Colonic mass: Status: Acute <Carmela Montalvo PA-C - Last Filed: 04/21/24 07:59> Assessment and Plan: Status post sigmoid resection Appears to have adequate pain control Looks comfortable Abdomen distended but soft Keep on clear liquids Pain management Await full return of GI function Known EtOH, drug abuse Withdrawal precautions Seen and examined independently Appreciate hospitalist follow up <Clem Herndon MD - Last Filed: 04/21/24 08:59> Assessment and Plan: POD #1 s/p Hand assisted laparoscopic sigmoid resection, with end-to-end anastomosis, flexible sigmoidoscopy. Doing overall well post op. Slightly distended this morning, c/o gas pains. Will cont clear liquids for now. Encouraged OOB/ambulation and increasing activity to promote GI function, help with gas pains. Tyrel meade. Dec IVF. Incentive spirometer 10x/hr. Hospitalists following for ETOH abuse, on phenobarbitol. <Carmela Montalvo PA-C - Last Filed: 04/21/24 07:59> Time Spent With Patient Time: Total time managing care of this patient today ____ minutes. <Carmela Montalvo PA-C - Last Filed: 04/21/24 07:59> Quality Stroke Does the patient have a stroke diagnosis?: No <HELADIO Akers Last Filed: 04/21/24 07:59> VTE Prior VTE?: No <Carmela Montalvo PA-C - Last Filed: 04/21/24 07:59> VTE Risk Level:: Medical - moderate - high <Carmela Montalvo PA-C - Last Filed: 04/21/24 07:59> VTE Device Contraindication: N/A - Device Ordered <HELADIO Akers Last Filed: 04/21/24 07:59> VTE Drug Contraindication: N/A - Med Ordered <HELADIO Akers Last Filed: 04/21/24 07:59>
[2024-04-21] MEDS: Folic Acid 1 MG TABLET PO (08:23)
[2024-04-21] MEDS: Thiamine HCL 100 MG TABLET PO (08:23)
[2024-04-21] MEDS: 0.9 % Sodium Chloride Flush 3 ML SYRINGE IVFLUSH ×2 (08:28→23:33)
[2024-04-21 08:57] LABS: MANUAL DIFF FLAG NO
[2024-04-21 09:03] LABS: Eosinophils Percent Auto 0.2 % (0-4); Hematocrit 37.3 % (42.0-52.0); Imm Gran Abs Auto 0.06 X10*3/uL (0.00-0.03); Imm Gran Pct Auto 0.6 % (0.0-0.4); Lymphocytes Percent Auto 10.5 % (20-40); Mean Corpuscular HGB Conc 34.9 g/dl (31.0-36.0); Mean Corpuscular Hemoglobin 31.9 pg (27.0-33.0); Mean Corpuscular Volume 91.4 fL (80.0-98.0); Monocytes Absolute Auto 0.5 X10*3/uL (0.1-1.2); Neutrophils Absolute Auto 8.3 x10*3/uL (2.0-8.3); Neutrophils Percent Auto 83.7 % (45-73); Platelet Count 223 X10*3/uL (160-400); Red Blood Count 4.08 X10*6/uL (4.60-5.80); Red Cell Distribution Width 12.3 % (11.0-16.0); White Blood Count 9.9 X10*3/uL (4.8-10.8)
[2024-04-21 09:14] LABS: Anion Gap 11 (12-20); Blood Urea Nitrogen 8 mg/dL (9-16); Calcium 8.7 mg/dL (8.4-10.2); Carbon Dioxide 28 mmol/L (22-29); Chloride 101 mmol/L (96-108); Creatinine Clr Calc Pharmacy 99.5; Estimated Glomerular Filt Rate > 60; Glucose Fasting 134 mg/dL (60-99); Potassium 4.2 mmol/L (3.3-5.1); Sodium 136 mmol/L (135-145)
[2024-04-21] MEDS: Lactated Ringers 1,000 ML 60 ML IVCONT (11:55)
--- NOTE | 2024-04-21 12:46 | PC.NURSE ---
Order to remove meade catheter received, patient informed and agreeable. Meade removed at 10:30, patient tolerated procedure well, patient able to void 300ml clear, light urine in the urinal,
--- NOTE | 2024-04-21 12:55 | MHC.CM.PN ---
SADDLE AND SIDE WIRE STITCHER AND CM MET WITH PT WITH COMPOUNDING ASSISTANT PT STATES HE DOES NOT HAVE HCP PT STATES HE DOES NOT USE DME PT STATES HE DOES NOT USE SERVICES PT STATES PCP IS DR. MOFFETT PT STATES HE LIVES WITH DIL PT CONTACT IS JADON MAYER [phone] DCP-HOME NO SERVICES PT WILL NEED TRANSPORTATION PT REPORTING FAMILY MOVING TO [place] AND IS UNABLE TO WITH THEM DUE TO ANKLE MONITOR INFORMATION FOR [employer] AND [facility] DELIVERED
--- NOTE | 2024-04-21 13:44 | HO.POSTANES ---
Post Anesthesia Evaluation Post Anesthesia Evaluation Date of Service: 04/20/24 Vital Signs: Vital Signs Temp Pulse Resp BP Pulse Ox O2 Del Method 04/21/24 11:48 97.6 F 61 16 111/64 96 Room Air 04/21/24 07:41 97.5 F 70 16 101/53 L 99 Room Air 04/21/24 05:20 13 04/21/24 04:48 59 112/57 L 04/21/24 03:15 97.5 F 14 107/57 L 97 Room Air Anesthesia: Nerve Block and General Endotracheal-GETA Pain Control: Satisfactory Nausea/Vomiting: None Hydration: Adequate Anesthesia-Related Issues: No Anes. Related Issues
--- NOTE | 2024-04-21 16:07 | MHC.CLN ---
NUTRITION CONSULT FOR RECENT WEIGHT LOSS. DIET=CLEAR LIQUIDS. PATIENT IS STATUS POST SIGMOID RESECTION. SIGNIFICANT WEIGHT LOSS X 7 MONTHS AND HX PARTIAL BOWEL OBSTRUCTION 01/2024. QUALIFIES MODERATELY MALNOURISHED IN THE CONTEXT OF CHRONIC ILLNESS. ADDING ENSURE CLEAR TID (720 KCALS, 24 G PROTEIN). PATIENT LIKES ENSURE AND RECOMMEND CHANGE SUPPLEMENT TO ENSURE WHEN ABLE. FOLLOW FOR DIET ADVANCEMENT AND PO INTAKE. SEE CLINICAL NUTRITION ASSESSMENT 04/21/24.
--- NOTE | 2024-04-21 16:55 | HO.ADDICTCON ---
History of Present Illness Date of Service: 04/21/2024 Chief Complaint: colon mass Reason for Consult: requesting resources for alcohol use Sources of Information: patient interviewed and chart reviewed HPI Narrative: Patient is a 58 year old Omani speaking male medically admitted following sigmoid resection Also being treated with phenobarb protocol for alcohol withdrawal Consult requested on patients behalf for resources Patient seen in room 351. Awake, alert, engaged in interview. Reporting he had been in recovery for 18 years and within the last couple of years I lost everything He started drinking again and using cocaine a few times a month . He shared current challenges with housing instability further complicated with him having an ankle monitor. He became very tearful and stated I am begging for help to have someplace to put my head down . This [facility] underwriter assured patient that CM would make a plan with him and ensure he had the resources when the time came to discharge. Attempted to redirect discussion to substance use history He denies any history of treatment. Inquired about motivation to address current use and he said, okay, if it gives me a place to stay . Review of Systems Constitutional: Reports as per HPI Diagnostics Vital Signs (24Hr): Vital Signs - 24 hr 04/20/24 19:12 04/20/24 23:12 04/21/24 00:25 Temperature 98 F 98.7 F Pulse Rate 80 78 67 Respiratory Rate 16 14 14 Blood Pressure 130/68 117/67 102/55 L Pulse Oximetry 96 96 96 Oxygen Delivery Method Room Air Room Air 04/21/24 03:15 04/21/24 04:48 04/21/24 05:20 Temperature 97.5 F Pulse Rate 59 Respiratory Rate 14 13 Blood Pressure 107/57 L 112/57 L Pulse Oximetry 97 Oxygen Delivery Method Room Air 04/21/24 07:41 04/21/24 11:48 04/21/24 15:29 Temperature 97.5 F 97.6 F 98.5 F Pulse Rate 70 61 65 Respiratory Rate 16 16 17 Blood Pressure 101/53 L 111/64 121/60 Pulse Oximetry 99 96 96 Oxygen Delivery Method Room Air Room Air Room Air BMI result Body Mass Index 20.8 Labs 04/21/24 08:40 04/21/24 08:40 Labs: Laboratory Results - last 48 hr 04/20/24 04/20/24 04/21/24 10:04 10:27 08:40 WBC 9.9 RBC 4.08 L Hgb 13.0 L Hct 37.3 L MCV 91.4 MCH 31.9 MCHC 34.9 RDW 12.3 Plt Count 223 MPV 11.0 Immature Gran % (Auto) 0.6 H Neut % (Auto) 83.7 H Lymph % (Auto) 10.5 L [place] % (Auto) 5.0 Eos % (Auto) 0.2 Baso % (Auto) 0.0 Lymph # (Auto) 1.0 L [place] # (Auto) 0.5 Eos # (Auto) 0.0 Baso # (Auto) 0.0 Abs Immat Gran (auto) 0.06 H Absolute Neuts (auto) 8.3 Absolute Nucleated RBC 0.000 Nucleated RBC % (auto) 0.0 Sodium 136 Potassium 4.2 Chloride 101 Carbon Dioxide 28 Anion Gap 11 L BUN 8 L Creatinine 0.68 Estim Creat Clear Calc 99.5 Estimated GFR > 60 Fasting Glucose 134 H Calcium 8.7 Urine Opiates Screen Not Detected Ur Buprenorphine Scrn Not Detected Ur Oxycodone Screen Not Detected Urine Methadone Screen Not Detected Urine Fentanyl Screen Not Detected Ur Barbiturates Screen Not Detected Ur Phencyclidine Scrn Not Detected Ur Amphetamines Screen Not Detected U Benzodiazepines Scrn Not Detected Urine Cocaine Screen Not Detected U Marijuana (THC) Screen Not Detected Blood Type A Negative Antibody Screen NEGATIVE Mental Status Exam Mental Status Exam Level of Consciousness: Awake and Alert Patient Behavior: Appropriate, Talkative and Crying Mood Description: Sad Medications Medications Current Medications Al Hydroxide/Mg Hydroxide (Magnesium Hydrox/Alum Hydrox 30 Ml Oral.Susp) 30 ml PO DAILY PRN PRN Reason: heartburn Folic Acid (Folic Acid 1 Mg Tablet) 1 mg PO DAILY [facility] Stop: 04/22/24 09:01 Last Admin: 04/21/24 08:23 Dose: 1 mg Hydromorphone HCl (Hydromorphone Hcl 0.5 Mg/0.5 Ml Syringe) 0.5 mg IVPUSH Q3H PRN; Protocol PRN Reason: Pain, Severe (Pain Scale 7-10) Last Admin: 04/21/24 16:04 Dose: 0.5 mg Lactated Ringer's (Lr) 1,000 mls @ 60 mls/hr IVCONT .[id number] [facility] Last Admin: 04/21/24 11:55 Dose: 60 mls/hr Acetaminophen (Ofirmev) 1,000 mg in 100 mls @ 400 mls/hr IV Q6H [facility] Last Infusion: 04/21/24 13:44 Dose: Infused Melatonin (Melatonin 3 Mg Tablet) 6 mg PO BEDTIME PRN PRN Reason: Insomnia Ondansetron HCl (Ondansetron Hcl 4 Mg/2 Ml Vial) 4 mg IVPUSH Q6H PRN PRN Reason: Nausea and Vomiting Oxycodone HCl (Oxycodone Hcl Immed Release 5 Mg Tablet) 5 mg PO Q4H PRN PRN Reason: Pain, Moderate(Pain Scale 4-6) Pharmacy Consult (Consult Rx Etoh Phenob Im/Po) 1 each MISCELLANE ONCE PRN; Protocol PRN Reason: Consult order Phenobarbital (Phenobarbital 15 Mg Tablet) 45 mg PO BID [facility]; Protocol Stop: 04/22/24 21:01 Last Admin: 04/21/24 08:58 Dose: Not Given Phenobarbital (Phenobarbital 30 Mg Tablet) 30 mg PO BID [facility]; Protocol Stop: 04/24/24 21:01 Phenobarbital (Phenobarbital 30 Mg Tablet) 30 mg PO DAILY [facility]; Protocol Stop: 04/26/24 09:01 Sodium Chloride (0.9 % Sodium Chloride Flush 3 Ml Syringe) 3 ml IVFLUSH QSHIFT [facility] Last Admin: 04/21/24 15:14 Dose: Not Given Thiamine HCl (Thiamine Hcl 100 Mg Tablet) 100 mg PO DAILY [facility] Stop: 04/22/24 09:01 Last Admin: 04/21/24 08:23 Dose: 100 mg Allergies Allergies Allergy/AdvReac Type Severity Reaction Status Date / Time No Known Allergies Allergy Verified 04/20/24 10:47 Assessment & Plan Assessment & Plan (1) Alcohol use disorder: Status: Acute Code(s): F10.90 - Alcohol use, unspecified, uncomplicated Assessment and Plan: discussed with CM to ensure they were aware of housing concerns from patient at this time additional support for AUD is not priority for patient given unstable housing will follow up on Wednesday if patient is still inpatient to provide recovery resources to review Total time managing care of this patient today ____ minutes. PMFSH Past Medical History Medical History NATIVE (hard of hearing) Low back pain Housing insecurity Depression Anxiety Dizziness Weakness Numbness of legs Cocaine use Smoker Daily consumption of alcohol Mild major depression Hypovitaminosis D Rash and nonspecific skin eruption Pure hypercholesterolemia Right shoulder pain Left shoulder pain Urticaria Family History Family History Father Prostate cancer Colon cancer Mother FH: uterine cancer Maternal Grandmother Cancer Maternal Grandfather Cancer Paternal Grandmother Cancer Paternal Grandfather Cancer Surgical History Surgical History Hx of colonoscopy Social History Social History Household Members: Children Household Members Other:: SEE NOTE Housing: Apartment Are you a primary lawn caretaker to a significant other at home: No Do you presently have visiting nurse or other home services: No Alcohol intake: never Patient Tobacco Use Status: Current someday Tobacco user Tobacco use type: Cigarette Cigarettes Per Day: 4 Years Smoked: 18 Smoked in Last 30 Days: Yes e-Cigarette/Vaping Use: Never Used Patient Interested in Nicotine Replacement: No (nicotine patch) Patient Given Instructions on How to Stop Smoking: No Second Hand Smoke Exposure: No Use of substances other than those prescribed or required for medical reasons: Yes Substance Use Type: Crack/Cocaine Substance Use Frequency: Occasionally Last Used Substance Other:: Last Wednesday Currently Displaying Signs/Symptoms of Drug Intoxication Withdrawal: No Have you been hit, kicked, punched, or otherwise hurt by someone within the past year? If so, by whom?: No Do you feel safe in your current relationship?: No Current Relationship Is there a partner from a previous relationship who is making you feel unsafe now?: No Are you made to feel afraid or neglected: No Are you DNR?: No Advance Directives: No Advance Directives Information Provided: No Advance Directives on File: No Do you have a plan to hurt others: No Plan Recently lost weight without trying: Yes How much weight loss: 24-33 pounds Eating poorly because of decreased appetite: Yes Nutrition screen score: 6 Nutrition Risks: No Nutritional Risk Poor oral hygiene: No service: No Current occupational status: employed Current occupational exposures/hazards: No Cognitive needs: No Hearing needs: No Vision needs: No
--- NOTE | 2024-04-21 17:34 | PC.NURSE ---
Phenobarbital protocol not started as ordered due to abnormal VS (per lieutenant shift supervisor RN) CIWA completed with score of 1 this am, provider notified. Patient reports no withdrawal symptoms, reached out to the provider to confirm if pheno protocol should be started and was instructed to restart only if patient has positive CIWA score. Patient reevaluated throughout the shift and has been scorinng 0 on the CIWA. Per telephone conversation with provider no phenobarbital needs to be given at this time.
[2024-04-22] MEDS: Acetaminophen 1,000 MG/100 ML PIGGYBACK 400 MG IV ×4 (01:59→18:02)
[2024-04-22 03:28] VITALS: BP 103/61; PULSE 65; RESP 16; TEMP 36.2; O2SAT 96
[2024-04-22] MEDS: Lactated Ringers 1,000 ML 60 ML IVCONT (05:23)
--- NOTE | 2024-04-22 06:05 | PC.NURSE ---
CIWA scores a 0, patient shows no signs or symptoms of withdrawal, continue to monitor.
[2024-04-22] MEDS: Folic Acid 1 MG TABLET PO (07:50)
[2024-04-22] MEDS: 0.9 % Sodium Chloride Flush 3 ML SYRINGE IVFLUSH ×2 (07:50→19:45)
[2024-04-22] MEDS: Thiamine HCL 100 MG TABLET PO (07:50)
[2024-04-22 07:58] VITALS: BP 120/70; PULSE 62; RESP 16; TEMP 36.3; O2SAT 97
--- NOTE | 2024-04-22 08:23 | P.PNIM_ITS ---
Subjective Subjective Date of Service: 04/22/24 Interval History: f/u on med consult doing well, no sings of withdrawal Physical Exam 2 Vital Signs: Vital Signs: Last Vital Signs Temp 97.3 F 04/22/24 07:58 Pulse 62 04/22/24 07:58 Resp 16 04/22/24 07:58 BP 120/70 04/22/24 07:58 Pulse Ox 97 04/22/24 07:58 O2 Del Method Room Air 04/22/24 07:58 BMI result Body Mass Index 20.8 Const: Other: General: AO X 3, no acute distress Resp: CTA bilateral CVS: S1,S2,RRR GI: +BS, incisional site tenderness, no distention Skin: No rash Neuro: motor grossly intact Psych: appropriate affect Objective Data Active Medications Al Hydroxide/Mg Hydroxide (Magnesium Hydrox/Alum Hydrox 30 Ml Oral.Susp) 30 ml PO DAILY PRN PRN Reason: heartburn Folic Acid (Folic Acid 1 Mg Tablet) 1 mg PO DAILY [facility] Stop: 04/22/24 09:01 Last Admin: 04/22/24 07:50 Dose: 1 mg Documented By: JULES Hydromorphone HCl (Hydromorphone Hcl 0.5 Mg/0.5 Ml Syringe) 0.5 mg IVPUSH Q3H PRN; Protocol PRN Reason: Pain, Severe (Pain Scale 7-10) Last Admin: 04/21/24 23:34 Dose: 0.5 mg Documented By: FELIPE Lactated Ringer's (Lr) 1,000 mls @ 60 mls/hr IVCONT .[id number] [facility] Last Infusion: 04/22/24 08:07 Dose: 60 mls/hr Documented By: JULES Acetaminophen (Ofirmev) 1,000 mg in 100 mls @ 400 mls/hr IV Q6H [facility] Last Infusion: 04/22/24 08:07 Dose: Infused Documented By: JULES Melatonin (Melatonin 3 Mg Tablet) 6 mg PO BEDTIME PRN PRN Reason: Insomnia Ondansetron HCl (Ondansetron Hcl 4 Mg/2 Ml Vial) 4 mg IVPUSH Q6H PRN PRN Reason: Nausea and Vomiting Oxycodone HCl (Oxycodone Hcl Immed Release 5 Mg Tablet) 5 mg PO Q4H PRN PRN Reason: Pain, Moderate(Pain Scale 4-6) Pharmacy Consult (Consult Rx Etoh Phenob Im/Po) 1 each MISCELLANE ONCE PRN; Protocol PRN Reason: Consult order Phenobarbital (Phenobarbital 15 Mg Tablet) 45 mg PO BID [facility]; Protocol Stop: 04/22/24 21:01 Last Admin: 04/21/24 22:18 Dose: Not Given Documented By: HEIDI Non-Admin Reason: assessed, no action needed Phenobarbital (Phenobarbital 30 Mg Tablet) 30 mg PO BID [facility]; Protocol Stop: 04/24/24 21:01 Phenobarbital (Phenobarbital 30 Mg Tablet) 30 mg PO DAILY [facility]; Protocol Stop: 04/26/24 09:01 Sodium Chloride (0.9 % Sodium Chloride Flush 3 Ml Syringe) 3 ml IVFLUSH QSHIFT [facility] Last Admin: 04/22/24 07:50 Dose: 3 ml Documented By: JULES Thiamine HCl (Thiamine Hcl 100 Mg Tablet) 100 mg PO DAILY [facility] Stop: 04/22/24 09:01 Last Admin: 04/22/24 07:50 Dose: 100 mg Documented By: JULES Labs 04/21/24 08:40 04/21/24 08:40 Labs: Laboratory Results - last 24 hr 04/21/24 08:40 MCV 91.4 MCH 31.9 MCHC 34.9 RDW 12.3 Plt Count 223 MPV 11.0 Immature Gran % (Auto) 0.6 H Neut % (Auto) 83.7 H Lymph % (Auto) 10.5 L [place] % (Auto) 5.0 Eos % (Auto) 0.2 Baso % (Auto) 0.0 Lymph # (Auto) 1.0 L [place] # (Auto) 0.5 Eos # (Auto) 0.0 Baso # (Auto) 0.0 Abs Immat Gran (auto) 0.06 H Absolute Neuts (auto) 8.3 Absolute Nucleated RBC 0.000 Nucleated RBC % (auto) 0.0 Anion Gap 11 L Estim Creat Clear Calc 99.5 Estimated GFR > 60 Fasting Glucose 134 H Calcium 8.7 Assessment and Plan (1) Alcohol use disorder: Status: Acute (2) Colonic mass: Status: Acute Plan 58/ m with etoh use, h/o substance 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 Alcohol use disorder, no sings of withdrawal, marginal bp and concern for low rr so hold phenobarb, add CIWA folic acid and thiamine supplement addiction med consult s/p sigmoid resection management per surgery elevated bp, no h/o htn, monitor dvt prophylaxis--deferred to surgery singing off and will follow on PRN basis Quality Stroke Does the patient have a stroke diagnosis?: No VTE Prior VTE?: No VTE Risk Level:: Medical - moderate - high VTE Device Contraindication: N/A - Device Ordered VTE Drug Contraindication: N/A - Med Ordered
--- NOTE | 2024-04-22 09:45 | PM.PNGS ---
Subjective Subjective Date of Service: 04/22/24 Interval history: Patient was doing well. He has minimal incisional discomfort. He is tolerating liquids. He states he is passing flatus. Patient is up out of bed and has been doing his incentive spirometry he states Physical Exam Vital Signs: Vital Signs: Last Vital Signs Temp 97.3 F 04/22/24 07:58 Pulse 62 04/22/24 07:58 Resp 16 04/22/24 07:58 BP 120/70 04/22/24 07:58 Pulse Ox 97 04/22/24 07:58 O2 Del Method Room Air 04/22/24 07:58 BMI result Body Mass Index 20.8 GI: Other: Abdomen is soft. Incisions clean dry and intact Objective Data Active Medications Al Hydroxide/Mg Hydroxide (Magnesium Hydrox/Alum Hydrox 30 Ml Oral.Susp) 30 ml PO DAILY PRN PRN Reason: heartburn Hydromorphone HCl (Hydromorphone Hcl 0.5 Mg/0.5 Ml Syringe) 0.5 mg IVPUSH Q3H PRN; Protocol PRN Reason: Pain, Severe (Pain Scale 7-10) Last Admin: 04/21/24 23:34 Dose: 0.5 mg Documented By: FELIPE Lactated Ringer's (Lr) 1,000 mls @ 60 mls/hr IVCONT .[id number] [facility] Last Infusion: 04/22/24 08:07 Dose: 60 mls/hr Documented By: JULES Acetaminophen (Ofirmev) 1,000 mg in 100 mls @ 400 mls/hr IV Q6H [facility] Last Infusion: 04/22/24 08:07 Dose: Infused Documented By: JULES Melatonin (Melatonin 3 Mg Tablet) 6 mg PO BEDTIME PRN PRN Reason: Insomnia Ondansetron HCl (Ondansetron Hcl 4 Mg/2 Ml Vial) 4 mg IVPUSH Q6H PRN PRN Reason: Nausea and Vomiting Oxycodone HCl (Oxycodone Hcl Immed Release 5 Mg Tablet) 5 mg PO Q4H PRN PRN Reason: Pain, Moderate(Pain Scale 4-6) Sodium Chloride (0.9 % Sodium Chloride Flush 3 Ml Syringe) 3 ml IVFLUSH QSHIFT [facility] Last Admin: 04/22/24 07:50 Dose: 3 ml Documented By: JULES Labs 04/21/24 08:40 04/21/24 08:40 Procedures Date of Service Date of Service: 04/22/24 Progress Note: A&P Assessment and plan (1) Postop check: Status: Acute Plan Advanced to full liquid diet, encourage out of bed/ambulate, incentive spirometry Time Spent With Patient Time: Total time managing care of this patient today ____ minutes. Quality Stroke Does the patient have a stroke diagnosis?: No VTE Prior VTE?: No VTE Risk Level:: Medical - moderate - high VTE Device Contraindication: N/A - Device Ordered VTE Drug Contraindication: N/A - Med Ordered
[2024-04-22 11:55] VITALS: BP 136/74; PULSE 59; RESP 16; TEMP 36.3; O2SAT 97
[2024-04-22 15:48] VITALS: BP 124/65; PULSE 71; RESP 20; TEMP 36.8; O2SAT 98
[2024-04-22 19:43] VITALS: BP 115/68; PULSE 69; RESP 20; TEMP 36.4; O2SAT 97
[2024-04-23] MEDS: Acetaminophen 1,000 MG/100 ML PIGGYBACK 400 MG IV ×4 (00:49→18:06)
[2024-04-23 02:51] VITALS: BP 104/58; PULSE 62; RESP 18; TEMP 36.3; O2SAT 97
[2024-04-23 07:27] VITALS: BP 122/73; PULSE 61; RESP 18; TEMP 36.3; O2SAT 97
--- NOTE | 2024-04-23 15:13 | MHC.CM.PN ---
CM MET WITH PT TO DISCUSS DC PLANNING PT REPORTS HE CANNOT RETURN TO HIS FAMILIES HOME HE SAYS THEY ARE WAY BEHIND IN RENT AND LEAVING ANY DAY CM EXPLAINED THERE WERE NO HOUSING OPTIONS THAT CM COULD PLACE HIM IN HE WAS GIVEN THE NUMBERS FOR WAYFINDERS AND [facility] PT WILL CALL [facility] IN THE MORNING TO DETERMINE IF THEY HAVE OPENINGS GROUP HOME SNF PLACEMENT ALSO DISCUSSED, HOWEVER, PT IS ON AN ANKLE MONITOR FOR PROBATION WHICH WILL BE A BARRIER TO PLACEMENT
[2024-04-23 15:23] VITALS: BP 130/70; PULSE 66; RESP 16; TEMP 36.6; O2SAT 99
--- NOTE | 2024-04-23 15:39 | P.PNGS_ITS ---
Subjective Subjective Date of Service: 04/23/24 Interval history: Patient was doing quite well. He is tolerating his diet. He is passing flatus. He is unsure if he had a bowel movement yet. Physical Exam 2 Vital Signs: Vital Signs: Last Vital Signs Temp 98 F 04/23/24 15:23 Pulse 66 04/23/24 15:23 Resp 16 04/23/24 15:23 BP 130/70 04/23/24 15:23 Pulse Ox 99 04/23/24 15:23 O2 Del Method Room Air 04/23/24 15:23 BMI result Body Mass Index 20.8 GI: Other: Abdomen is soft. All wounds clean dry and intact. Objective Data Active Medications Al Hydroxide/Mg Hydroxide (Magnesium Hydrox/Alum Hydrox 30 Ml Oral.Susp) 30 ml PO DAILY PRN PRN Reason: heartburn Hydromorphone HCl (Hydromorphone Hcl 0.5 Mg/0.5 Ml Syringe) 0.5 mg IVPUSH Q3H PRN; Protocol PRN Reason: Pain, Severe (Pain Scale 7-10) Last Admin: 04/21/24 23:34 Dose: 0.5 mg Documented By: FELIPE Acetaminophen (Ofirmev) 1,000 mg in 100 mls @ 400 mls/hr IV Q6H [facility] Last Infusion: 04/23/24 13:12 Dose: Infused Documented By: JULES Melatonin (Melatonin 3 Mg Tablet) 6 mg PO BEDTIME PRN PRN Reason: Insomnia Ondansetron HCl (Ondansetron Hcl 4 Mg/2 Ml Vial) 4 mg IVPUSH Q6H PRN PRN Reason: Nausea and Vomiting Oxycodone HCl (Oxycodone Hcl Immed Release 5 Mg Tablet) 5 mg PO Q4H PRN PRN Reason: Pain, Moderate(Pain Scale 4-6) Sodium Chloride (0.9 % Sodium Chloride Flush 3 Ml Syringe) [facility] Last Admin: 04/23/24 07:37 Dose: Not Given Documented By: JULES Non-Admin Reason: Previously Administered Labs 04/21/24 08:40 04/21/24 08:40 Procedures Date of Service Date of Service: 04/23/24 Progress Note: A&P Assessment and plan (1) Postop check: Status: Acute Plan I discussed with the patient that he could probably go home today but he does not feel he is ready and would like to stay another night. Arrangements were made for this. Continue current plan Time Spent With Patient Time: Total time managing care of this patient today ____ minutes. Quality Stroke Does the patient have a stroke diagnosis?: No VTE Prior VTE?: No VTE Risk Level:: Medical - moderate - high VTE Device Contraindication: N/A - Device Ordered VTE Drug Contraindication: N/A - Med Ordered
[2024-04-23 18:55] VITALS: BP 131/71; PULSE 75; RESP 16; TEMP 36.5; O2SAT 98
[2024-04-23] MEDS: 0.9 % Sodium Chloride Flush 3 ML SYRINGE IVFLUSH ×2 (22:43→22:44)
[2024-04-23] MEDS: oxyCODONE HCl Immed Release 5 MG TABLET PO (22:43)
[2024-04-24 03:33] VITALS: BP 119/69; PULSE 61; RESP 16; TEMP 36.6; O2SAT 98
[2024-04-24 07:32] VITALS: BP 107/63; PULSE 78; RESP 14; TEMP 36.2; O2SAT 98
--- NOTE | 2024-04-24 07:56 | P.PNGS_ITS ---
Subjective Subjective Date of Service: 04/24/24 Interval history: passing flatus tolerating full liquids feels well Physical Exam 2 Vital Signs: Vital Signs: Last Vital Signs Temp 97.1 F 04/24/24 07:32 Pulse 78 04/24/24 07:32 Resp 14 04/24/24 07:32 BP 107/63 04/24/24 07:32 Pulse Ox 98 04/24/24 07:32 O2 Del Method Room Air 04/24/24 07:32 BMI result Body Mass Index 20.8 Const: General: comfortable and no acute distress Resp: Effort & Inspection: normal respiratory effort Cardio: Rate: regular rate GI: Other: incision clean and dry Palpation (GI): Soft to palpation, not firm, nontender and no guarding Objective Data Active Medications Al Hydroxide/Mg Hydroxide (Magnesium Hydrox/Alum Hydrox 30 Ml Oral.Susp) 30 ml PO DAILY PRN PRN Reason: heartburn Hydromorphone HCl (Hydromorphone Hcl 0.5 Mg/0.5 Ml Syringe) 0.5 mg IVPUSH Q3H PRN; Protocol PRN Reason: Pain, Severe (Pain Scale 7-10) Last Admin: 04/21/24 23:34 Dose: 0.5 mg Documented By: FELIPE Melatonin (Melatonin 3 Mg Tablet) 6 mg PO BEDTIME PRN PRN Reason: Insomnia Ondansetron HCl (Ondansetron Hcl 4 Mg/2 Ml Vial) 4 mg IVPUSH Q6H PRN PRN Reason: Nausea and Vomiting Oxycodone HCl (Oxycodone Hcl Immed Release 5 Mg Tablet) 5 mg PO Q4H PRN PRN Reason: Pain, Moderate(Pain Scale 4-6) Last Admin: 04/23/24 22:43 Dose: 5 mg Documented By: BRAXTON Sodium Chloride (0.9 % Sodium Chloride Flush 3 Ml Syringe) 3 ml IVFSH [facility] Last Admin: 04/23/24 22:43 Dose: 3 ml Documented By: BRAXTON Labs 04/21/24 08:40 04/21/24 08:40 Procedures Date of Service Date of Service: 04/24/24 Progress Note: A&P Assessment and plan (1) Colonic mass: Status: Acute Assessment and Plan: S/P sigmoid resection looks well subjectively feels well abd soft and benign advance diet possibly dc home once tolerating diet await path Time Spent With Patient Time: Total time managing care of this patient today ____ minutes. Quality Stroke Does the patient have a stroke diagnosis?: No VTE Prior VTE?: No VTE Risk Level:: Medical - moderate - high VTE Device Contraindication: N/A - Device Ordered VTE Drug Contraindication: N/A - Med Ordered
[2024-04-24] MEDS: 0.9 % Sodium Chloride Flush 3 ML SYRINGE IVFLUSH ×3 (08:16→20:17)
[2024-04-24] MEDS: oxyCODONE HCl Immed Release 5 MG TABLET PO ×2 (08:36→13:18)
--- NOTE | 2024-04-24 10:08 | MHC.CLN ---
F/U DIET ADVANCED THIS MORNING TO REGULAR, BLAND. CHANGING SUPPLEMENT TO ENSURE TID TO PROVIDE 1050 KCALS, 60 G PROTEIN. HX SIGNIFICANT WEIGHT LOSS. PATIENT LIKES ENSURE. FOLLOW FOR DIET TOLERANCE AND PO INTAKE.
[2024-04-24 15:20] VITALS: BP 122/66; PULSE 92; RESP 18; TEMP 37.2; O2SAT 97
--- NOTE | 2024-04-24 15:58 | PM.EVENT ---
Event Note Date of Service: 04/24/24 Event Note: Seen on afternoon rounds Tolerating regular diet Feels well Denies significant pain Passing good amounts of flatus No BMs yet Looks well Abdomen soft and benign He states he is not ready to be discharged today and says he plans to go home tomorrow Time Spent With Patient Time: Total time managing care of this patient today ____ minutes.
[2024-04-24 19:57] VITALS: BP 137/75; PULSE 78; RESP 16; TEMP 36.6; O2SAT 98
[2024-04-24] MEDS: Docusate Sodium 100 MG CAPSULE PO (20:16)
[2024-04-25 03:19] VITALS: BP 154/81; PULSE 90; RESP 16; TEMP 36.3; O2SAT 99
--- NOTE | 2024-04-25 05:49 | PC.NURSE ---
pt said he did have a bowel movement last night
[2024-04-25] MEDS: Docusate Sodium 100 MG CAPSULE PO (07:45)
[2024-04-25] MEDS: 0.9 % Sodium Chloride Flush 3 ML SYRINGE IVFLUSH (07:46)
[2024-04-25 07:49] VITALS: BP 131/76; PULSE 78; RESP 16; TEMP 36.2; O2SAT 99
--- NOTE | 2024-04-25 07:59 | PM.PNGS ---
Subjective Subjective Date of Service: 04/25/24 Interval history: feels well tolerating diet passing good flatus, says he had a small BM Wants to go home Physical Exam Vital Signs: Vital Signs: Last Vital Signs Temp 97.2 F 04/25/24 07:49 Pulse 78 04/25/24 07:49 Resp 16 04/25/24 07:49 BP 131/76 04/25/24 07:49 Pulse Ox 99 04/25/24 07:49 O2 Del Method Room Air 04/25/24 07:49 BMI result Body Mass Index 20.8 Const: Other: Looks well General: comfortable and no acute distress Resp: Effort & Inspection: normal respiratory effort Cardio: Rate: regular rate GI: Other: Incision clean and dry Palpation (GI): Soft to palpation, not firm and no guarding Objective Data Active Medications Al Hydroxide/Mg Hydroxide (Magnesium Hydrox/Alum Hydrox 30 Ml Oral.Susp) 30 ml PO DAILY PRN PRN Reason: heartburn Docusate Sodium (Docusate Sodium 100 Mg Capsule) 100 mg PO BID [facility] Last Admin: 04/25/24 07:45 Dose: 100 mg Documented By: ELAINE Hydromorphone HCl (Hydromorphone Hcl 0.5 Mg/0.5 Ml Syringe) 0.5 mg IVPUSH Q3H PRN; Protocol PRN Reason: Pain, Severe (Pain Scale 7-10) Last Admin: 04/21/24 23:34 Dose: 0.5 mg Documented By: FELIPE Melatonin (Melatonin 3 Mg Tablet) 6 mg PO BEDTIME PRN PRN Reason: Insomnia Ondansetron HCl (Ondansetron Hcl 4 Mg/2 Ml Vial) 4 mg IVPUSH Q6H PRN PRN Reason: Nausea and Vomiting Oxycodone HCl (Oxycodone Hcl Immed Release 5 Mg Tablet) 5 mg PO Q4H PRN PRN Reason: Pain, Moderate(Pain Scale 4-6) Last Admin: 04/24/24 13:18 Dose: 5 mg Documented By: CHARIS Sodium Chloride (0.9 % Sodium Chloride Flush 3 Ml Syringe) 3 ml IVFLUSH [facility] Last Admin: 04/25/24 07:46 Dose: 3 ml Documented By: NARENDRAME Labs 04/21/24 08:40 04/21/24 08:40 Procedures Date of Service Date of Service: 04/25/24 Progress Note: A&P Assessment and plan (1) Colonic mass: Status: Acute Assessment and Plan: Status post sigmoid resection Looks well Good GI function Abdomen is soft and benign Okay to DC home today Follow up instructions reinforced Await path Time Spent With Patient Time: Total time managing care of this patient today ____ minutes. Quality Stroke Does the patient have a stroke diagnosis?: No VTE Prior VTE?: No VTE Risk Level:: Medical - moderate - high VTE Device Contraindication: N/A - Device Ordered VTE Drug Contraindication: N/A - Med Ordered
--- NOTE | 2024-04-25 08:44 | MHC.CM.PN ---
pt dcd home self care
--- NOTE | 2024-04-25 11:26 | P.DS_ITS ---
DS: Providers Provider Date of Service: 04/25/24 Date of admission: 04/20/24 08:44 Date of discharge: 04/25/24 Primary care physician: Lauren Hansen MD Attending physician on admission: Clem Herndon Consults: 04/20/24 14:58 Consult to Hospitalist Routine Comment: Consulting Provider: [facility] [place] Hospitalists Reason For Exam: ETOH and substance abuse 04/20/24 16:35 Addiction Medicine Routine Consulting Provider: Addiction Covering Reason for consultation: H/O ETOH/cocaine use - pt would like resources Attending physician on discharge: Clem Herndon DS: Diagnosis Discharge Diagnosis (1) Colonic mass: Status: Acute DS: Summary Hospital Course Hospital Course: HPI AT ADMISSION: The patient is a 58-year-old male who has been diagnosed to have a sigmoid mass on imaging as well as on colonoscopy. This was at level 40 cm and previous biopsy showed high-grade dysplasia. This was also partially obstructing. It was therefore recommended to proceed with surgical resection. He understood the technique of hand assisted laparoscopic sigmoid resection and presents now for the procedure. HOSPITAL COURSE: On 04/20/24, hand assisted laparoscopic sigmoid resection, with end-to-end anastomosis, flexible sigmoidoscopy was performed by Dr. Herndon without complication. The patient tolerated the procedure well and was admitted for observation post operatively. He had an uncomplicated recovery course. His meade was removed on POD #1. He was tolerating clear liquids. He was ambulated and his activity was gradually increased. He began to pass flatus. His diet was advanced to full liquids and then solids. He began to have bowel movements. On the day of discharge, he was tolerating a solid diet without nausea or vomiting, had good pain control, had good GI function. His abdomen was benign and incisions were clean. He was hemodynamically stable. He was discharged to home on 04/25/24 in stable condition. He is to follow up in the office in 2 weeks. His pathology remains pending. Status at Discharge Functional status at discharge: independent ambulation Overall status at discharge: patient is progressing back to baseline Time Attestation Discharge Coordination Time (in mins): 35 Quality: Safe Use of Opioids Does Pt have an Active Cancer Diagnosis on the Problem List?: No Quality: Stroke Does the patient have a stroke diagnosis?: No Physical Exam Vital Signs: Vital Signs: Last Vital Signs Temp 97.2 F 04/25/24 07:49 Pulse 78 04/25/24 07:49 Resp 16 04/25/24 07:49 BP 131/76 04/25/24 07:49 Pulse Ox 99 04/25/24 07:49 O2 Del Method Room Air 04/25/24 07:49 BMI result Body Mass Index 20.8 Const: General: comfortable, no acute distress and alert Orientation/consciousness: patient oriented x3 GI: Other: incisions clean Inspection: No distended Palpation (GI): Soft to palpation, Tenderness to palpation present (GI) (mild incisional) and no guarding Skin: General skin exam: no rashes or lesions noted Neuro: General: patient oriented x3 and moves all extremities DS: Data Data Completed and Pending Pending studies at discharge: Pending at discharge 04/20/24 15:38 Surgical [PTH] Routine Discharge Plan Discharge Anticipated Discharge Date/Time: 04/24/24 09:29 Patient Disposition: Home, Self-Care Discharge Diagnosis: Colon mass Referrals: Clem Herndon MD [Physician] - 2 Weeks Lauren Segundo MD [Primary Care Provider] - 1 Week Discharge Medications: New hydrocodone-acetaminophen 5-325 mg tablet 1 tab PO Q4-6H PRN (Reason: pain) Qty: 30 0RF Rx Instructions: Partial Fill upon patient request. docusate sodium [Colace] 100 mg capsule 100 mg PO BID Qty: 60 2RF Discharge Orders: Discharge Order (Routine); Ordered 04/25/24 Ordered By: Clem Herndon Diet: Advance to usual diet Activity on Discharge: No heavy lifting Stand Alone Forms: Patient Portal Discharge page Print Language: Tamazight Activity Restrictions/Additional Instructions: If the incision area is tender, you may apply an ice pack for short intervals (No more than 20 minutes on, followed by at least 20 minutes off). Do not apply heat. Do not use creams, lotions, or topical antibiotics. These can cause infection or allergic reaction. Ok to shower. You have reyna closing your incision and these will be removed approximately 10-14 days after surgery. NO HEAVY LIFTING (>10lbs) or strenuous activity. Follow up in office. ([phone]) Call Your Doctor If: -Your temperature exceeds 101.5? F -You experience excessive pain or swelling -You have an unexpected reaction to medication -You have excessive bleeding -You experience continued vomiting/nausea -Your incision begins to separate -Your incision shows signs of infection such as increased redness, swelling, excessive pain, drainage (light blood or clear fluid is normal) or heat Care Plan Goals: Continued convalescence Health Concerns: Returned to baseline status Alcohol abuse Substance abuse The patient was brought to the operating room and placed in left lateral decubitus position under monitored anesthesia care. A surgical time- out was done. A full digital rectal exam was done and this did not reveal any significant anal lesions. The tip of the Olympus colonoscope was gently introduced through the anal orifice advanced with insufflation all the way to the cecum. The cecum was intubated. The cecum was identified by visualization of the ileocecal valve as well as the appendiceal orifice. The cecal mucosa was unremarkable. The scope was gradually withdrawn with careful examination of the entire colonic mucosa being done with scope withdrawal. The patient had adequate bowel prep so it was unlikely that any lesion may have been missed. The rectum was reached and there were no lesions seen. The anal canal was unremarkable. The scope was then withdrawn completely with desufflation The patient tolerated procedure well. There were no immediate complications. [His] next colonoscopy may be in the next [10] years. Plan of Treatment: Recovery from surgery Assessment: Stable Discharge Date/Time: 04/25/24 09:39
== END 2024-04-25 09:39 | disposition home or self-care (01) | DRG 223 ==
LOC: HO.SSSA 08:45 → HO.S3 14:58
PROVIDERS: Nurse Practitioner; Physician Assistant Surgical; Admitting Provider Surgery; PCP Internal Medicine; Visit Provider Surgery
PROC: 0DTE0ZZ Resection of Large Intestine, Open Approach (ICD-10-PCS; principal; 2024-04-20 12:30)
DX: K63.9 Disease of intestine, unspecified (principal); F10.10 Alcohol abuse, uncomplicated; F17.210 Nicotine dependence, cigarettes, uncomplicated; G89.18 Other acute postprocedural pain; Z71.6 Tobacco abuse counseling; R03.0 Elevated blood-pressure reading, without diagnosis of hypertension; F19.10 Other psychoactive substance abuse, uncomplicated
CPT/HCPCS: 36415; 80048; 80307; 85025; 86850; 86900; 86901; 88304; 88305; 88309; 88313; 88341; 88342; 88360; 93005; C1758; J0131; J0665; J1100; J1171; J2003; J2250; J2405; J2704; J2795; J3010; J7120

== ENCOUNTER → 2024-04-20 08:44 | Outpatient (BNV) | payer OTHER, SELFPAY | PROVIDERS: Admitting Provider Surgery; PCP Internal Medicine; Visit Provider Nurse Practitioner Psychiatric/Mental Health | DX: F10.90 Alcohol use, unspecified, uncomplicated (principal) | CPT/HCPCS: 99231 ==

== ENCOUNTER → 2024-04-20 08:44 | Outpatient (BNV) | payer OTHER, SELFPAY | PROVIDERS: Admitting Provider Surgery; PCP Internal Medicine; Visit Provider Surgery | DX: K63.89 Other specified diseases of intestine (principal); C18.9 Malignant neoplasm of colon, unspecified | CPT/HCPCS: 44204; 99024; 99499 ==

== ENCOUNTER → 2024-04-20 08:44 | Outpatient (BNV) | payer OTHER, SELFPAY | PROVIDERS: Admitting Provider Surgery; PCP Internal Medicine; Visit Provider Internal Medicine | DX: F10.90 Alcohol use, unspecified, uncomplicated (principal); K63.89 Other specified diseases of intestine | CPT/HCPCS: 99222; 99232 ==

== ENCOUNTER 2024-05-03 11:10 | Outpatient (AMB) | payer OTHER, SELFPAY ==
--- NOTE | 2024-05-03 11:13 | A.OFFVIS_ITS ---
Vital Signs 05/03/24 11:15 Height 5 ft 7 in Weight 136 lb 4 oz BMI 21.3 Intake Visit Reasons: S/P sigmoid resection Intake Note: This patient presents for post-op assessment status post Hand assisted laparoscopic sigmoid resection, with end-to-end anastomosis, flexible sigmoidoscopy. Pt c/o; reports no complaints pertaining to surgery. Aeronautical Engineering Teacher Required: Yes Aeronautical Engineering Teacher Language: [employer] Services: Aeronautical Engineering Teacher Present Aeronautical Engineering Teacher Name: Abdulaziz Information Interpreted: non-clinical & clinical Accompanied by: Self / Same As Patient Allergies No Known Allergies Allergy (Verified 05/03/24 11:21) HPI HPI S/P sigmoid resection: Details: He underwent hand assisted laparoscopic sigmoid resection last April 21, 2024. He was discharged on postop day 4. He says he is doing very well. He denies any GI complaints. He has good oral intake. He has good bowel movements. He denies significant pain. PFSH Medical History Colon cancer [place] (hard of hearing) Low back pain Housing insecurity Depression Anxiety Dizziness Weakness Numbness of legs Cocaine use Smoker Daily consumption of alcohol Mild major depression Hypovitaminosis D Rash and nonspecific skin eruption Pure hypercholesterolemia Right shoulder pain Left shoulder pain Urticaria Surgical History Hx of colonoscopy Family History Father Prostate cancer Colon cancer Mother FH: uterine cancer Maternal Grandmother Cancer Maternal Grandfather Cancer Paternal Grandmother Cancer Paternal Grandfather Cancer Social History Household Members: Children Household Members Other:: SEE NOTE Housing: Apartment Are you a primary health care technician to a significant other at home: No Do you presently have visiting nurse or other home services: No Alcohol intake: never Patient Tobacco Use Status: Current someday Tobacco user Tobacco use type: Cigarette Cigarettes Per Day: 4 Years Smoked: 18 e-Cigarette/Vaping Use: Never Used Second Hand Smoke Exposure: No Substance Use Type: Crack/Cocaine service: No Current occupational status: employed Current occupational exposures/hazards: No Cognitive needs: No Hearing needs: No Vision needs: No Review of Systems Const Denies chills and Denies fever(s) Resp Denies cough GI Denies abdominal pain Physical Exam Vital Signs: BMI result Body Mass Index 21.3 Const General: comfortable and no acute distress Resp Effort & Inspection: normal respiratory effort GI Other: Incision well healed Palpation (GI): Soft to palpation Quality Reporting (2019) Adult ([facility] 138/07/22/68) Smoking risk assessment performed?: Yes Patient Tobacco Use Status: Current someday Tobacco user Assessment & Plan Assessment & Plan (1) Colon cancer: Code(s): C18.9 - Malignant neoplasm of colon, unspecified Category: Medical Plan: Status post sigmoid resection. 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 I will refer him to the oncologist for this as he will require adjuvant treatment. He seems to be doing very well. His incisions are well healed. I removed all the skin reyna He was advised to avoid lifting anything more than 20 lb for at least 2 more weeks. I will see him in the office in about another month for a follow-up visit. Orders: Referrals Hematology & Oncology Referral C18.9 - Malignant neoplasm of colon, unspecified Coding Level of Care Code Global (64537) Diagnoses Colon cancer C18.9
[2024-05-03 11:15] VITALS: BMI 21.3
== END 2024-05-03 11:33 | disposition home or self-care (01) ==
PROVIDERS: PCP Internal Medicine; Visit Provider Surgery
DX: C18.9 Malignant neoplasm of colon, unspecified (principal)
CPT/HCPCS: 99024

== ENCOUNTER → 2024-05-03 11:10 | Outpatient (BNVA) | payer OTHER, SELFPAY | PROVIDERS: PCP Internal Medicine; Visit Provider Surgery | DX: C18.9 Malignant neoplasm of colon, unspecified (principal) | CPT/HCPCS: 99212 ==

== ENCOUNTER → 2024-06-13 15:19 | Outpatient (BNV) | payer OTHER, SELFPAY | PROVIDERS: PCP Internal Medicine; Visit Provider Internal Medicine | DX: C18.7 Malignant neoplasm of sigmoid colon (principal) | CPT/HCPCS: 99204; G2211 ==

== ENCOUNTER 2024-06-19 14:01 | Outpatient (AMB) | payer OTHER, SELFPAY ==
--- NOTE | 2024-06-19 14:07 | MHC.OFFVIS ---
Vital Signs 06/19/24 14:19 Height 5 ft 7 in Weight 157 lb BMI 24.6 Intake Visit Reasons: 1 month S/P sigmoid resection Intake Note: This patient presents for one month follow-up status post Hand assisted laparoscopic sigmoid resection, with end-to-end anastomosis, flexible sigmoidoscopy. Pt c/o; no concerns. Infantry Operations Specialist Required: Yes Infantry Operations Specialist Language: Plaque Maker Services: Infantry Operations Specialist Present Infantry Operations Specialist Name: Abdulaziz Information Interpreted: non-clinical & clinical Accompanied by: Self / Same As Patient Allergies No Known Allergies Allergy (Verified 06/19/24 14:20) HPI HPI 1 month S/P sigmoid resection: Details: He is here for follow-up after sigmoid resection for a T4 N2 adenocarcinoma last March,. He continues to do well. He has good oral intake. He has good bowel movements. He says he feels well overall. PFSH Medical History Colon cancer [place] (hard of hearing) Low back pain Housing insecurity Depression Anxiety Dizziness Weakness Numbness of legs Cocaine use Smoker Daily consumption of alcohol Mild major depression Hypovitaminosis D Rash and nonspecific skin eruption Pure hypercholesterolemia Right shoulder pain Left shoulder pain Urticaria Surgical History Hx of colonoscopy Family History Father Prostate cancer Colon cancer Mother FH: uterine cancer Maternal Grandmother Cancer Maternal Grandfather Cancer Paternal Grandmother Cancer Paternal Grandfather Cancer Social History Household Members: Children and Other Household Members Other:: SEE NOTE Housing: Other Are you a primary child daycare worker to a significant other at home: No Do you presently have visiting nurse or other home services: No Alcohol intake: never Patient Tobacco Use Status: Current someday Tobacco user Tobacco use type: Cigarette Years Smoked: 18 e-Cigarette/Vaping Use: Never Used Second Hand Smoke Exposure: No Substance Use Type: Crack/Cocaine service: No Current occupational status: employed Current occupational exposures/hazards: No Sexual orientation: Straight/Heterosexual Gender identity: Male Cognitive needs: No Hearing needs: No Vision needs: No Review of Systems Const Denies chills and Denies fever(s) Card Denies chest pain Resp Denies cough GI Denies abdominal pain and Denies hematochezia Physical Exam Vital Signs: BMI result Body Mass Index 24.6 Const Other: Looks well General: comfortable and no acute distress Resp Effort & Inspection: normal respiratory effort GI Other: Incision well healed, no hernia Palpation (GI): Soft to palpation, not firm, nontender and no guarding Quality Reporting (2019) Adult ([facility] 138/07/22/68) Smoking risk assessment performed?: Yes Patient Tobacco Use Status: Current someday Tobacco user Assessment & Plan Assessment & Plan (1) Colon cancer: Code(s): C18.9 - Malignant neoplasm of colon, unspecified Category: Medical Plan: Status post resection. He has a T4 N2 lesion. He will we will therefore benefit from adjuvant chemotherapy. He will be started on a FOLFOX regimen by Dr. Brown. He is to undergo port placement next week I will see him again in the office in about 6 months. Coding Level of Care Code Global (22262) Diagnoses Colon cancer C18.9
[2024-06-19 14:19] VITALS: BMI 24.6
== END 2024-06-19 14:36 | disposition home or self-care (01) ==
PROVIDERS: PCP Internal Medicine; Visit Provider Surgery
DX: C18.9 Malignant neoplasm of colon, unspecified (principal)
CPT/HCPCS: 99024

== ENCOUNTER → 2024-06-19 14:01 | Outpatient (BNVA) | payer OTHER, SELFPAY | PROVIDERS: PCP Internal Medicine; Visit Provider Surgery | DX: C18.9 Malignant neoplasm of colon, unspecified (principal) | CPT/HCPCS: 99212 ==

== ENCOUNTER 2024-06-22 13:47 | Outpatient (REF) | payer OTHER, SELFPAY ==
--- NOTE | ~2024-06-22 | CT_ITS ---
CLINICAL HISTORY: staging of colon cancer CT chest with contrast Comparison: None Findings: The heart is normal size. The visualized thyroid and mediastinum are unremarkable. The lungs are clear. The upper abdomen is unremarkable. No acute fractures. IMPRESSION: 1. Unremarkable chest CT. This document has been electronically signed by: Vick Gomes MD on 06/23/2024 08:47:21
== END 2024-06-22 13:48 | disposition home or self-care (01) ==
LOC: HO.CT 13:47
PROVIDERS: PCP Internal Medicine; Visit Provider Internal Medicine
DX: C18.9 Malignant neoplasm of colon, unspecified (principal)
CPT/HCPCS: 71260

== ENCOUNTER → 2024-06-22 13:50 | Outpatient (BNV) | payer OTHER, SELFPAY | PROVIDERS: PCP Internal Medicine; Visit Provider Specialist | DX: C18.9 Malignant neoplasm of colon, unspecified (principal) | CPT/HCPCS: 71260 ==

== ENCOUNTER 2024-06-23 13:07 | Outpatient (AMB) | payer OTHER, SELFPAY ==
[2024-06-23 13:49] VITALS: BP 121/80; PULSE 87; BMI 25.2
--- NOTE | 2024-06-23 13:49 | MHC.OFFVIS ---
Vital Signs 06/23/24 13:49 Height 5 ft 7 in Weight 160 lb 14.999 oz BMI 25.2 BP 121/80 Blood Pressure Location Rt brachial Position Sitting Pulse 87 Intake Visit Reasons: 3 month follow up Intake Note: Patient in office today in follow up s/p sigmoid resection CC: Patient reports a little bit of pain from surgical incision. Denies other GI symptoms today. Gasket Former Required: Yes Accompanied by: Self / Same As Patient Allergies No Known Allergies Allergy (Verified 12/20/24 13:57) HPI Comments Details: This is a 57y.o M with PMH of tubular adenoma with HGD 2016, HLD, HTN, depression who is here for follow up of diverticulitis. Seen with live historic interpreter. Reports LLQ pain x 1 month that has been progressing. Has been to ER x2 and diagnosed with possible diverticulitis of sigmoid colon. Reports decreased appetite, nausea and soft BMs which sometimes have blood in it. Fam hx + CRC in father in his 70s. [place]: 2019: Suboptimal prep. No polyps. Diverticulosis of L colon. Repeat recommended in 5 years due to hx of advanced polyp. 2016: 1.5 cm flat polyp in sigmoid colon with T.A with moderate dysplasia 2016: Bx of flat polyp in sigmoid: T.A with focal HGD. [place] 02/17/24: 1. Partially obstructing colon mass in sigmoid colon at 40 cm. (biopsy) 2. External and internal hemorrhoids Path: Colon, mass at 40 cm, biopsy: Superficial fragments of colonic mucosa with high grade dysplasia, at least; multiple additional levels examined 03/17/24: Pt seen with translator and interpreter. Findings of the colo were already reviewed with the pt over the phone see workload 02/23. He has also been seen by gen surg and plan is for sigmoid resection if staging scans are negative. Pt verbalises understanding of dx. Reviewed that most likely arose from HGD TA prev seen in sigmoid colon. 06/23/24: Here for 3 month follow up. s/p sigmoid resection with end-to-end anastomosis 04/20/24. Path: A. 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 - Metastatic carcinoma present in 8 of 21 lymph nodes examined. - pT4a N2b (AJCC Stage 8th ed.) B. Anastomotic donuts, excision: Colonic tissue within normal limits; negative for carcinoma. Following with syrgery Dr Herndon and Onc Dr Brown. Teary eyed during the visit as feels his missed/canceled visits may have led to delay in diagnosis. [facility] Medical History Colon cancer [place] (hard of hearing) Low back pain Housing insecurity Depression Anxiety Dizziness Weakness Numbness of legs Cocaine use Smoker Daily consumption of alcohol Mild major depression Hypovitaminosis D Rash and nonspecific skin eruption Pure hypercholesterolemia Right shoulder pain Left shoulder pain Urticaria Surgical History History of colon resection Hx of colonoscopy Family History Father Prostate cancer Colon cancer Mother FH: uterine cancer Maternal Grandmother Cancer Maternal Grandfather Cancer Paternal Grandmother Cancer Paternal Grandfather Cancer Social History Household Members: Children and Other Household Members Other:: SEE NOTE Housing: Other Are you a primary ostomy care nurse to a significant other at home: No Do you presently have visiting nurse or other home services: No Alcohol intake: never Patient Tobacco Use Status: Current someday Tobacco user Tobacco use type: Cigarette Years Smoked: 18 e-Cigarette/Vaping Use: Never Used Second Hand Smoke Exposure: No Use of substances other than those prescribed or required for medical reasons: No Substance Use Type: Crack/Cocaine Do you have thoughts of harming others: None Do you have a plan to hurt others: No Plan service: No Current occupational status: employed Current occupational exposures/hazards: No Sexual orientation: Straight/Heterosexual Gender identity: Male Cognitive needs: No Hearing needs: No Vision needs: No Review of Systems Const All systems reviewed & are unremarkable except as noted in HPI and below Physical Exam Vital Signs: Last Vital Signs Pulse 87 06/23/24 13:49 BP 121/80 06/23/24 13:49 BMI result Body Mass Index 25.2 No apparent distress Nonicteric Abdomen soft, nondistended Alert and oriented x3, normal gait Assessment & Plan Assessment & Plan (1) Colonic mass: Code(s): K63.89 - Other specified diseases of intestine (2) Partial obstruction of colon: Code(s): K56.600 - Partial intestinal obstruction, unspecified as to cause (3) Colon cancer: Code(s): C18.9 - Malignant neoplasm of colon, unspecified Category: Medical Plan Reviewed with the pt to abstain from illicit drug use. Avoid NSAIDs for pain control. Tylenol is ok. Also reviewed that initial diagnostic colo was INCOMPLETE due to partially obstructing mass. He will be booked for a repeat complete colo within 3-6 months. PEG prep reviewed and instructions given to the pt. He is quite overwhelmed from the recent surgery and now the upcoming chemo and would like to hold off booking the procedure until [facility] started the chemo. He requests a visit in a few months to discuss this. Follow up 2 months. Medications: New acetaminophen (Tylenol Extra Strength) 500 mg PO TID PRN 120 tabs 0RF fever 90 days polyethylene glycol 3350 (Miralax) 17 grams PO BID PRN 238 grams 1RF constipation 90 days peg 3350-electrolytes 236-22.74-6.74 -5.86 gram (Golytely) as per split prep instructions, until fecal effluent is clear 240 mL PO Q10M 4,000 mL 0RF colonoscopy Coding Level of Care Code Est Pt Level 4 (81558) Diagnoses Colonic mass K63.89 Partial obstruction of colon K56.600 Colon cancer C18.9
== END 2024-06-23 14:22 | disposition home or self-care (01) ==
PROVIDERS: PCP Internal Medicine; Visit Provider Internal Medicine
DX: K63.89 Other specified diseases of intestine (principal); K56.600 Partial intestinal obstruction, unspecified as to cause; C18.9 Malignant neoplasm of colon, unspecified
CPT/HCPCS: 99499

== ENCOUNTER → 2024-06-23 13:07 | Outpatient (BNVA) | payer OTHER, SELFPAY | PROVIDERS: PCP Internal Medicine; Visit Provider Internal Medicine ==

== ENCOUNTER 2024-06-28 10:50 | Day surgery (SDC) | payer OTHER, SELFPAY ==
[2024-06-28] VITALS (18 sets, daily range): BP systolic 99–124; BP diastolic 53–70; PULSE 55–71; RESP 12–116; TEMP 36.1–36.4; O2SAT 96–100; BMI 23.8
--- NOTE | ~2024-06-28 | IR_ITS ---
CLINICAL HISTORY: Colon cancer. The patient presents to interventional radiology for placement of a port for chemotherapy. PROCEDURES: 1. Real-time ultrasound-guided access into the right internal jugular vein after documentation of selected vessel patency, and permanent image storing in the patient records. 2. Placement of a 6.6 Danish single-lumen power port. CLINICIAN: Finn Lzi PA-C MEDICATIONS: - Versed 1.5 mg, Fentanyl 100 mcg, Lidocaine 1% 10 mL SQ -Antibiotics: Ancef 2g -For additional details, please see nursing flowsheet. Complications: None. Estimated blood loss: <5 ml Specimens: None. Contrast: None. Fluoroscopy time: 0.6 min MODERATE SEDATION TIME: 23 min PROCEDURE NOTE: The procedure, risks, benefits, and alternatives were carefully explained to the patient and written informed consent was obtained. The patient was placed supine on the fluoroscopy table. A timeout was performed. The right neck and chest was prepped and draped in usual sterile fashion. Maximum barrier technique was utilized. Local anesthesia was administered to the access site with 1% lidocaine. Under ultrasound guidance, the right internal jugular vein was accessed with a 5 fr micropuncture set. A 0.035 in wire was advanced into the IVC. A peel-away sheath was advanced over the wire and into the SVC, and the wire was removed. Next, subcutaneous lidocaine was administered to the chest. The port pocket was created after the skin incision, utilizing blunt dissection. Using blunt dissection, a subcutaneous tunnel was created that connects from the port pocket to the venotomy site. Through the peel-away sheath, the 6.6 Danish port catheter was placed. The catheter position was verified with fluoroscopy to be at the superior vena cava/right atrial junction. The port was connected to the catheter and was placed in the pocket. The venotomy site was closed with a 3-0 Vicryl subcutaneous suture. The port incision site was closed with interrupted 3-0 Vicryl subcutaneous sutures and surgical glue. Prior to closing the skin, 1 g of Ancef solution was placed in the pocket. The port was tested, flushed, and packed with heparin per routine protocol. The patient tolerated the procedure well. The patient was stable after the procedure and was transferred to the PACU. The procedure was performed under moderate sedation and with a dedicated nurse with continuous monitoring of vital signs. A permanent image of the ultrasound the neck and fluoroscopic image of the chest was saved and sent to PACS. FINDINGS: 1. Patent right internal jugular vein 2. Placement of a 6.6 Danish single lumen power port. 3. Port flushes and aspirates very well with a 10 mL syringe. No pneumothorax. IR/IR cvc insert tunnel w prt/control systems drafting officer IMPRESSION: Placement of a 6.6 Danish single-lumen power port. PLAN: - The patient will be discharged home when stable by sedation protocol. - Port may be used immediately. This procedure was performed by Finn Liz PA-C, and directly supervised by Dr. Zimmer Electronically signed by: Humble Zimmer MD 07/05/2024 01:47 PM [facility]
--- NOTE | 2024-06-28 12:46 | MHC.SHP ---
Pre-Procedural Eval Section A - 24 Hr Update-Section A only Date of Service: 06/28/24 Section B - Complete if H&P > 30 days Chief Complaint: MALIGNANT NEOPLASM OF COLON Details of Present Illness: 58 y/o man with colon cancer and poor iv access. Relevant Family History (Specify if Yes): No Relevant Social History: Alcohol Use Present Medications: see Short Stay Collaborative assessment Medical History: Significant History History of Previous Operations: Relevant previous surgery/procedure and date(s) Allergies: Allergies Allergy/AdvReac Type Severity Reaction Status Date / Time No Known Allergies Allergy Verified 06/28/24 11:47 Review of Systems Sugical H&P ROS: Negative: Constitution, Cardiovascular and Respiratory Exam Surgical H&P Exam: Normal: Heart, Normal: Lungs, Normal: Skin and Normal: Neurological Plan 58 y/o man with colon cancer and poor iv access. -Port Time Spent With Patient Time: Total time managing care of this patient today ____ minutes.
[2024-06-28] MEDS: ceFAZolin Sodium/Dextrose,Iso 2 GM/50 ML PIGGYBACK IV (12:53)
[2024-06-28] MEDS: Acetaminophen 1,000 MG/100 ML PIGGYBACK 400 MG IV (13:00)
[2024-06-28] MEDS: fentaNYL citrate/PF 100 MCG/2 ML VIAL 50 MCG IVPUSH (13:32)
[2024-06-28] MEDS: Midazolam HCl 5 MG/ML VIAL 1 MG IVPUSH (13:32)
[2024-06-28] MEDS: fentaNYL citrate/PF 100 MCG/2 ML VIAL 25 MCG IVPUSH ×2 (13:37→13:55)
[2024-06-28] MEDS: Midazolam HCl 5 MG/ML VIAL IVPUSH (13:37)
== END 2024-06-28 14:30 | disposition home or self-care (01) ==
PROVIDERS: Physician Assistant Surgical; PCP Internal Medicine; Visit Provider Internal Medicine
DX: Z45.2 Encounter for adjustment and management of vascular access device (principal); C18.9 Malignant neoplasm of colon, unspecified
CPT/HCPCS: 36561; 99152; 99153; C1769; C1788; J0131; J0690; J1642; J1644; J2250; J2310; J3010

== ENCOUNTER → 2024-06-28 12:49 | Outpatient (BNV) | payer OTHER, SELFPAY | PROVIDERS: PCP Internal Medicine; Visit Provider Physician Assistant Surgical | DX: C18.9 Malignant neoplasm of colon, unspecified (principal) | CPT/HCPCS: 36561; 76937 ==

== ENCOUNTER 2024-09-20 10:58 | Outpatient (AMB) | payer OTHER, SELFPAY ==
[2024-09-20 11:07] VITALS: BP 130/82; PULSE 84; BMI 25.2
--- NOTE | 2024-09-20 11:07 | MHC.OFFVIS ---
Vital Signs 09/20/24 11:07 Height 5 ft 7 in Weight 160 lb 14.999 oz BMI 25.2 BP 130/82 Blood Pressure Location Lt brachial Position Sitting Pulse 84 Intake Visit Reasons: 3 MO F/U Intake Note: Chaz presents in the office as a 3 month follow up. CC: He is having no GI concerns! Clinical Aide Required: Yes Allergies No Known Allergies Allergy (Verified 06/28/24 11:47) HPI Comments Details: This is a 57y.o M with PMH of tubular adenoma with HGD 2016, HLD, HTN, depression who is here for follow up of diverticulitis. Seen with live site coordinator. Reports LLQ pain x 1 month that has been progressing. Has been to ER x2 and diagnosed with possible diverticulitis of sigmoid colon. Reports decreased appetite, nausea and soft BMs which sometimes have blood in it. Fam hx + CRC in father in his 70s. [place]: 2019: Suboptimal prep. No polyps. Diverticulosis of L colon. Repeat recommended in 5 years due to hx of advanced polyp. 2016: 1.5 cm flat polyp in sigmoid colon with T.A with moderate dysplasia 2016: Bx of flat polyp in sigmoid: T.A with focal HGD. [place] 02/17/24: 1. Partially obstructing colon mass in sigmoid colon at 40 cm. (biopsy) 2. External and internal hemorrhoids Path: Colon, mass at 40 cm, biopsy: Superficial fragments of colonic mucosa with high grade dysplasia, at least; multiple additional levels examined 03/17/24: Pt seen with emu farm worker. Findings of the colo were already reviewed with the pt over the phone see workload 02/23. He has also been seen by gen surg and plan is for sigmoid resection if staging scans are negative. Pt verbalises understanding of dx. Reviewed that most likely arose from HGD TA prev seen in sigmoid colon. 06/23/24: Here for 3 month follow up. s/p sigmoid resection with end-to-end anastomosis 04/20/24. Path: A. 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 - Metastatic carcinoma present in 8 of 21 lymph nodes examined. - pT4a N2b (AJCC Stage 8th ed.) B. Anastomotic donuts, excision: Colonic tissue within normal limits; negative for carcinoma. 09/20/24: Here for follow up. On FOLFOX through Onc. They had also recommended genetic testing due to fam hx of colon cancer - however pt denies any FDR with colon cancer. Mother: uterine Currently pt without any abd pain, N,V, D. Prev colo was INCOMPLETE due to partially obstructing mass. He is therefore due for colonoscopy. [facility] Medical History (Updated 08/02/24 @ 12:33 by Charo Brown MD) Colon cancer [place] (hard of hearing) Low back pain Housing insecurity Depression Anxiety Dizziness Weakness Numbness of legs Cocaine use Smoker Daily consumption of alcohol Mild major depression Hypovitaminosis D Rash and nonspecific skin eruption Pure hypercholesterolemia Right shoulder pain Left shoulder pain Urticaria Surgical History (Updated 07/05/24 @ 08:52 by Charo Brown MD) History of colon resection Hx of colonoscopy Family History Father Prostate cancer Colon cancer Mother FH: uterine cancer Maternal Grandmother Cancer Maternal Grandfather Cancer Paternal Grandmother Cancer Paternal Grandfather Cancer Social History Household Members: Children and Other Household Members Other:: SEE NOTE Housing: Other Are you a primary post acute care registered nurse to a significant other at home: No Do you presently have visiting nurse or other home services: No Alcohol intake: never Patient Tobacco Use Status: Current someday Tobacco user Tobacco use type: Cigarette Years Smoked: 18 e-Cigarette/Vaping Use: Never Used Second Hand Smoke Exposure: No Substance Use Type: Crack/Cocaine service: No Current occupational status: employed Current occupational exposures/hazards: No Sexual orientation: Straight/Heterosexual Gender identity: Male Cognitive needs: No Hearing needs: No Vision needs: No Review of Systems Const All systems reviewed & are unremarkable except as noted in HPI and below Physical Exam Vital Signs: Last Vital Signs Pulse 84 09/20/24 11:07 BP 130/82 09/20/24 11:07 BMI result Body Mass Index 25.2 No apparent distress Nonicteric Abdomen soft, nondistended Alert and oriented x3, normal gait Assessment & Plan Assessment & Plan (1) Colon cancer: Code(s): C18.9 - Malignant neoplasm of colon, unspecified Category: Medical Plan Due for completion colonoscopy. This will be set up. Plan: - PEG prep sent to pharmacy - Instructions reviewed iwth the help of emu farm worker and handout provided - Pt aware will need a ride to and from the procedure Follow up after colo Medications: New peg 3350-electrolytes [id number] -5.86 gram (Golytely) as per split prep instructions, until fecal effluent is clear 240 mL PO Q10M 4,000 mL 0RF colonoscopy Coding Level of Care Code Est Pt Level 4 (42570) Diagnoses Colon cancer C18.9
--- OUTSIDE RECORDS SUMMARY | 2024-09-20 13:12 | XMS_ITS | Clinical Summary ---
Author Organization [facility] Address [address] [place] [address] Phone Care Team Providers Care Yardage Control Operator Forming Name Role Phone Physician, Pcp Unknown Primary Care Provider Jo vailable Allergies No known active allergies Medications dexAMETHasone (DECADRON) 4 mg tablet Take 1 tablet (4 mg total) by mouth 2 (two) times a day. 07/05/2024 Active mirtazapine (REMERON) 15 mg tablet Take 1 tablet (15 mg total) by mouth at bedtime. 07/10/2024 Active sertraline (ZOLOFT) 50 mg tablet Take 1 tablet (50 mg total) by mouth 1 (one) time each day. 06/28/2024 Active Active Problems Problem Noted Date Diagnosed Date Influenza 07/13/2024 Resolved Problems Problem Noted Date Diagnosed Date Resolved Date Acute hypoxic respiratory fa ilure ([facility] V24, [facility] V28) 07/12/2024 07/13/2024 Encounters Date Type Department Care Team Description 07/12/2024 2:39 PM EST - 07/13/2024 3:55 PM EST Hospital Encounter [facility] [address] [place] [address] Juan Orellana MD Bukalo, Nermina, MD Bell, Alistair A, MD Hypokalemia (Primary Dx); Influenza; Hypocalcemia Discharge Disposition: Home or Self Care from Last 3 Months Social History Tobacco Use Types Packs/Day Years Used Date Smoking Tobacco: Former Cigarettes Q uit: 02/2024 Passive Smoke Exposure: Never Smokeless Tobacco: Never Tobacco Cessation:Counseling Given: No Alcohol Use Standard Drinks/Week Comments Never 0 (1 standard drink = 0.6 oz pur e alcohol) Interpersonal Safety Answer Date Record ed Physical Abuse 07/12/2024 Verbal Abuse 07/12/2024 Sex and Gender Information Value Date Recorded Sex Assigned at Not on file Legal Sex Male 9:59 AM EST Gender Identity Not on file Sexual Orientation Not on file Obstetrics History Last Filed Vital Signs Vital Sign Reading Time Taken Comments Blood Pressure 119/58 07/13/2024 2:37 PM EST Pulse 86 07/13/2024 2:37 PM EST Temperature 37.4 ??C (99.4 ??F) 07/13/2024 2:37 PM ES T Respiratory Rate 16 07/13/2024 2:37 PM EST Oxygen Saturation 98% 07/13/2024 2:37 PM EST Inhaled Oxygen Concentration - - Weight 66.7 kg (147 lb) 07/12/2024 8:10 PM EST Height 170.2 cm (5' 7 ) 07/12/2024 8:10 PM EST Body Mass Index 23.02 07/12/2024 8:10 PM EST Plan of Treatment Health Maintenance Due Date Last Done Comments DTaP,Tdap,and Td Vaccines (1 - Tdap) 08/30/1983 Pneumococcal Vaccine: 50+ Ye ars (1 of 1 - PCV) 2014 Zoster Vaccines (1 of 2) 2014 COVID-19 Vaccine ( - 2023-2 5 season) 2024 Cholesterol Screening (Lipid Panel) 07/13/2024 Colorectal Cancer Screening: Colonoscopy 07/13/2024 Depression Screening 07/13/2024 HIV Screening 07/13/2024 Hepatitis C Screening 07/13/2024 Social Influencers of Health Screening 07/13/2024 Influenza Vaccine (Season Ended) 2025 RSV Immunization Adult Patie nts (1 - 1-dose 75+ series) 08/30/2039 HIB Vaccines Aged Out No longer eligi ble based on patient's age to complete this topic HPV Vaccines Aged Out No longer eligi ble based on patient's age to complete this topic Hepatitis A Vaccines Aged Out No long er eligible based on patient's age to complete this topic Hepatitis B Vaccines Aged Out No long er eligible based on patient's age to complete this topic IPV Vaccines Aged Out No longer eligi ble based on patient's age to complete this topic MMR Vaccines Aged Out No longer eligi ble based on patient's age to complete this topic Meningococcal ACWY Vaccine Aged Out N o longer eligible based on patient's age to complete this topic Meningococcal B Vaccine Aged Out No l onger eligible based on patient's age to complete this topic Pneumococcal Vaccine: Pediat rics (0 to 5 Years) and At-Risk Patients (6 to 64 Years) Aged Out No longer eligible b ased on patient's age to complete this topic RSV Immunization Patients Un angelica 20 months Aged Out No longer eligible b ased on patient's age to complete this topic Varicella Vaccines Aged Out No longer eligible based on patient's age to complete this topic Procedures Procedure Name Priority Date/Time Associated Diagnosis Comments ECG OUTSIDE 07/14/2024 RESPIRATORY VIRUS PANEL MOLECULAR STUDY Routine 07/13/2024 10:02 AM EST COMPLETE BLOOD COUNT Routine 07/13/2024 6:44 AM EST BASIC METABOLIC PANEL Routine 07/13/2024 6:44 AM EST OXYGEN THERAPY, ADULT Routine 07/12/2024 5:27 PM EST OXYGEN THERAPY, ADULT Routine 07/12/2024 5:27 PM EST LACTATE, WITH REFLEX STAT 07/12/2024 4:23 PM EST CULTURE BLOOD STAT 07/12/2024 4:23 PM EST CULTURE BLOOD STAT 07/12/2024 4:23 PM EST FIELDS URINE CULTURE TUBE STAT 07/12/2024 4:08 PM EST URINALYSIS WITH REFLEX MICROSCOPIC AND CULTURE STAT 07/12/2024 4:08 PM EST URINALYSIS WITH REFLEX MICROSCOPIC AND CULTURE STAT 07/12/2024 4:08 PM EST XR CHEST 2 VIEWS STAT 07/12/2024 3:47 PM EST CBC WITH AUTO DIFFERENTIAL STAT 07/12/2024 3:00 PM EST BASIC METABOLIC PANEL STAT 07/12/2024 3:00 PM EST CBC AND DIFFERENTIAL STAT 07/12/2024 3:00 PM EST [id number], RSV, FLU A AND B QUALITATIVE RT-PCR, INTERNAL LAB STAT 07/12/2024 3:00 PM EST from Last 3 Months Results * ECG-Outside (07/14/2024) us Provider Onbase MD ECG ORDERABLES Final Result * (ABNORMAL) Respiratory virus panel molecular study (07/13/2024 10:02 AM EST) Adenovirus Detection by PCR Not Detected Not Detected LAB MICROBIOLOGY METHOD 07/13/2024 11:29 AM [facility] Influenza B PCR Not Detected Not Detected LAB MICROBIOLOGY METHOD 07/13/2024 11:29 AM [facility] Coronavirus 229E Not Detected Not Detected LAB MICROBIOLOGY METHOD 07/13/2024 11:29 AM [facility] Coronavirus HKU1 Not Detected Not Detected LAB MICROBIOLOGY METHOD 07/13/2024 11:29 AM [facility] Coronavirus OC43 Not Detected Not Detected LAB MICROBIOLOGY METHOD 07/13/2024 11:29 AM [facility] Coronavirus NL63 Not Detected Not Detected LAB MICROBIOLOGY METHOD 07/13/2024 11:29 AM [facility] Parainfluenza Virus 1 Not Detected Not Detected LAB MICROBIOLOGY METHOD 07/13/2024 11:29 AM [facility] Parainfluenza Virus 2 Not Detected Not Detected LAB MICROBIOLOGY METHOD 07/13/2024 11:29 AM [facility] Parainfluenza Virus 3 Not Detected Not Detected LAB MICROBIOLOGY METHOD 07/13/2024 11:29 AM [facility] Parainfluenza Virus 4 Not Detected Not Detected LAB MICROBIOLOGY METHOD 07/13/2024 11:29 AM [facility] RSV PCR Not Detected Not Detected LAB MICROBIOLOGY METHOD 07/13/2024 11:29 AM [facility] Human Metapneumovirus A and B Not Detected Not Detected LAB MICROBIOLOGY METHOD 07/13/2024 11:29 AM [facility] Rhinovirus/Entero virus Not Detected Not Detected LAB MICROBIOLOGY METHOD 07/13/2024 11:29 AM [facility] Bordetella pertussis Not Detected Not Detected LAB MICROBIOLOGY METHOD 07/13/2024 11:29 AM [facility] Bordetella parapertussis Not Detected Not Detected LAB MICROBIOLOGY METHOD 07/13/2024 11:29 AM [facility] Influenza A H1N1 PDM09 Detected(A ) Not Detected LAB MICROBIOLOGY METHOD 07/13/2024 11:29 AM [facility] Mycoplasma pneumo by PCR Not Detected Not Detected LAB MICROBIOLOGY METHOD 07/13/2024 11:29 AM [facility] Chlamydia pneumoniae Not Detected Not Detected LAB MICROBIOLOGY METHOD 07/13/2024 11:29 AM [facility] SARS COV-2 Not Detected Not Detected LAB MICROBIOLOGY METHOD 07/13/2024 11:29 AM [facility] Swab Both anterior nares / Unknown Non-blood Collection / Unknown 07/13/2024 10:02 AM EST 07/13/2024 10:14 AM [facility] - 07/13/2024 11:29 AM EST Testing was performed using the [employer] Respiratory Pathogen PCR Assay. All results must be correlated with the clinical findings. Results should not be used as the sole basis for diagnosis. False Negative results may occur from the presence of sequence variants in the region targeted by the assay or the presence of inhibitors. Results may be affected by concurrent antiviral/antimicrobial therapy or levels of organisms that are below the limit of detection. Kevin Tobar MD LAB MICROBIOLOGY - GENERAL OR DERABLES Final Result [facility] [address] [place] [address], * (ABNORMAL) Complete blood count (07/13/2024 6:44 AM EST) [facility] WBC 8.1 4.8 - 10.8 K/mcL LAB HEMETOLOGY METHOD 07/13/2024 7:24 AM [facility] RBC 3.90(L) 4.50 - 5.50 M/mcL LAB HEMETOLOGY METHOD 07/13/2024 7:24 AM [facility] Hemoglobin 12.0(L) 13.5 - 17.5 g/dL LAB HEMETOLOGY METHOD 07/13/2024 7:24 AM [facility] Hematocrit 35.3(L) 42.0 - 54.0 % LAB HEMETOLOGY METHOD 07/13/2024 7:24 AM [facility] MCV 89.6 79.0 - 98.0 FL LAB HEMETOLOGY METHOD 07/13/2024 7:24 AM [facility] MCH 30.5 27.0 - 32.0 pcg LAB HEMETOLOGY METHOD 07/13/2024 7:24 AM [facility] MCHC 34.0 32.0 - 37.0 g/dL LAB HEMETOLOGY METHOD 07/13/2024 7:24 AM [facility] RDW 12.9 11.0 - 15.0 % LAB HEMETOLOGY METHOD 07/13/2024 7:24 AM [facility] Platelets 185 130 - 400 K/mcL LAB HEMETOLOGY METHOD 07/13/2024 7:24 AM [facility] MPV 10.4 7.0 - 11.0 FL LAB HEMETOLOGY METHOD 07/13/2024 7:24 AM [facility] NRBC 0.0 <1.0 % LAB HEMETOLOGY METHOD 07/13/2024 7:24 AM [facility] NRBC Absolute 0.00 <0.10 K/mcL LAB HEMETOLOGY METHOD 07/13/2024 7:24 AM [facility] Blood Venous blood specimen / Unknown Venipuncture / Unknown 07/13/2024 6:44 AM EST 07/13/2024 7:09 AM EST us Maycol Bates MD LAB BLOOD ORDERABLES Final Res ult [facility] [address] [place] [address], [place] [phone] * Basic metabolic panel (07/13/2024 6:44 AM EST) Only the most recent of2 resultswithin the time period is included. Sodium 137 133 - 145 mmol/L LAB CHEMISTRY METHOD 07/13/2024 7:46 AM [facility] Potassium 3.9 3.5 - 5.5 mmol/L LAB CHEMISTRY METHOD 07/13/2024 7:46 AM [facility] Chloride 104 96 - 110 mmol/L LAB CHEMISTRY METHOD 07/13/2024 7:46 AM [facility] CO2 26 21 - 32 mmol/L LAB CHEMISTRY METHOD 07/13/2024 7:46 AM [facility] Anion Gap 7 3 - 11 LAB CHEMISTRY METHOD 07/13/2024 7:46 AM [facility] Glucose 93 70 - 100 mg/dL LAB CHEMISTRY METHOD 07/13/2024 7:46 AM [facility] BUN 11 5 - 25 mg/dL LAB CHEMISTRY METHOD 07/13/2024 7:46 AM [facility] Creatinine 0.79 0.70 - 1.30 mg/dL LAB CHEMISTRY METHOD 07/13/2024 7:46 AM EST [facility] eGFR 102 >=60 mL/min/1. 73m2 LAB CHEMISTRY METHOD 07/13/2024 7:46 AM [facility] Comment:Calculation based on the??Chronic Kidney Disease Epidemiology Collaboration (CKD-EPI) equation refit??without adjustment for race. BUN/Creatinine Ratio 13.9 LAB CHEMISTRY METHOD 07/13/2024 7:46 AM [facility] Calcium 8.5 8.5 - 10.5 mg/dL LAB CHEMISTRY METHOD 07/13/2024 7:46 AM [facility] Blood Venous blood specimen / Unknown Venipuncture / Unknown 07/13/2024 6:44 AM EST 07/13/2024 7:09 AM EST Maycol Bates MD LAB BLOOD ORDERABLES Final Res ult Performing Organization Address City/[facility]/ZIP Co de Phone Number [facility] [address] [place] [address], [place] [phone] * Lactate, with reflex (07/12/2024 4:23 PM EST) LACTIC ACID 0.8 0.4 - 2.0 mmol/L LAB CHEMISTRY METHOD 07/12/2024 5:05 PM [facility] Blood Venous blood specimen / Unknown Venipuncture / Unknown 07/12/2024 4:23 PM EST 07/12/2024 4:32 PM EST us Juan Orellana MD LAB BLOOD ORDERABLES Final Resu lt Performing Organization Address City/[facility]/ZIP Co de Phone Number [facility] [address] [place] [address], [place] [phone] * Culture blood (07/12/2024 4:23 PM EST) Only the most recent of2 resultswithin the time period is included. Culture, Blood No growth at 5 days 07/17/2024 5:01 PM [facility] Blood Venous blood specimen / Unknown Venipuncture / Unknown 07/12/2024 4:23 PM EST 07/12/2024 4:32 PM EST Juan Orellana MD LAB MICROBIOLOGY - GENERAL ERIKA BERGMAN Final Result [facility] [address] [place] [address], [place] [phone] * (ABNORMAL) Urinalysis with reflex microscopic and culture (07/12/2024 4:08 PM EST) Specific [place] Urine 1.020 1.003 - 1.030 LAB URINALYSIS - AUTOMATED METHOD 07/12/2024 5:05 PM [facility] pH, Urine 6.0 5.0 - 8.0 pH LAB URINALYSIS - AUTOMATED METHOD 07/12/2024 5:05 PM [facility] Leukocytes, Urine Negative Negative LAB URINALYSIS - AUTOMATED METHOD 07/12/2024 5:05 PM [facility] Nitrite, Urine Negative Negative LAB URINALYSIS - AUTOMATED METHOD 07/12/2024 5:05 PM [facility] Protein, Urine Trace <=Trace mg/dL LAB URINALYSIS - AUTOMATED METHOD 07/12/2024 5:05 PM [facility] Glucose, Urine Negative Negative mg/dL LAB URINALYSIS - AUTOMATED METHOD 07/12/2024 5:05 PM [facility] Ketones, Urine Negative Negative mg/dL LAB URINALYSIS - AUTOMATED METHOD 07/12/2024 5:05 PM [facility] Urobilinogen, Urine 0.2 0.2 - 1.0 mg/dL LAB URINALYSIS - AUTOMATED METHOD 07/12/2024 5:05 PM [facility] Bilirubin, Urine Negative Negative LAB URINALYSIS - AUTOMATED METHOD 07/12/2024 5:05 PM [facility] Blood, Urine Small(A) Negative LAB URINALYSIS - AUTOMATED METHOD 07/12/2024 5:05 PM [facility] RBC, Urine 4.2(H) 0 - 4 /HPF LAB URINALYSIS - AUTOMATED METHOD 07/12/2024 5:05 PM [facility] WBC, Urine 0.8 0 - 4 /HPF LAB URINALYSIS - AUTOMATED METHOD 07/12/2024 5:05 PM [facility] Squamous Epithelial, Urine 6 0 - 60 /LPF LAB URINALYSIS - AUTOMATED METHOD 07/12/2024 5:05 PM [facility] Bacteria, Urine Negative Negative /HPF LAB URINALYSIS - AUTOMATED METHOD 07/12/2024 5:05 PM [facility] Hyaline Casts, Urine 0.4 0 - 3 /LPF LAB URINALYSIS - AUTOMATED METHOD 07/12/2024 5:05 PM [facility] Urine Urine specimen obtained by clean catch procedure / Unknown Non-blood Collection / Unknown 07/12/2024 4:08 PM EST 07/12/2024 4:28 PM EST Patricia SNYDER LAB URINE ORDERABLES Final Result Performing Organization Address City/State/[facility] Co de Phone Number [facility] [address] [place] [address], * Fields urine culture tube (07/12/2024 4:08 PM EST) Extra Tube Hold for add-ons. 07/12/2024 6:01 PM [facility] Comment:Auto resulted. Urine Urine specimen obtained by clean catch procedure / Unknown Non-blood Collection / Unknown 07/12/2024 4:08 PM EST 07/12/2024 4:28 PM EST Patricia SNYDER LAB URINE ORDERABLES Final Result [facility] [address] [place] [address], [place] [phone] * XR Chest 2 Views (07/12/2024 3:47 PM EST) Anatomical Region Laterality Modality Body Radiographic Nataliia ging 07/12/2024 3:51 PM EST Impressions 07/12/2024 4:23 PM EST FINDINGS/IMPRESSION: NO ACUTE FINDINGS. Normal heart size and pulmonary vascularity. ??Lungs are clear and costophrenic angles are sharp. ??No acute osseous abnormality. ??Right chest wall port. -------- FINAL REPORT -------- Dictated By: Emerson Marte Dictated Date: 07/12/2024 15:51 ET Assigned Physician: Emerson Marte Reviewed and Electronically Signed By: Emerson Marte Signed Date: 07/12/2024 16:23 ET Workstation ID: [id number] Transcribed By: Self Edit Transcribed Date: 07/12/2024 15:51 ET Narrative 07/12/2024 4:23 PM EST XR CHEST 2 VIEWS INDICATION: fever cq pna TECHNIQUE: XR CHEST 2 VIEWS COMPARISON: No priors available. Procedure Note Emerson Marte MD - 07/12/2024 XR CHEST 2 VIEWS INDICATION: fever cq pna TECHNIQUE: XR CHEST 2 VIEWS COMPARISON: No priors available. IMPRESSION: FINDINGS/IMPRESSION: NO ACUTE FINDINGS. Normal heart size and pulmonary vascularity. Lungs are clear andcostophrenic angles are sharp. No acute osseous abnormality. Right chestwall port. -------- FINAL REPORT -------- Dictated By: Emerson Marte Dictated Date: 07/12/2024 15:51 ET Assigned Physician: Emerson Marte Reviewed and Electronically Signed By: Emerson Marte Signed Date: 07/12/2024 16:23 ET Workstation ID: [id number] Transcribed By: Self Edit Transcribed Date: 07/12/2024 15:51 ET Juan Orellana MD IMG XR PROCEDURES Final Result * (ABNORMAL) [id number], RSV, Influenza A and B qualitative RT-PCR (07/12/2024 3:00 PM EST) Influenza A PCR Detected(A) Not Detected LAB MICROBIOLOGY METHOD 07/12/2024 4:29 PM EST [facility] Influenza B PCR Not Detected Not Detected LAB MICROBIOLOGY METHOD 07/12/2024 4:29 PM EST [facility] RSV PCR Not Detected Not Detected LAB MICROBIOLOGY METHOD 07/12/2024 4:29 PM [facility] SARS COV-2 Not Detected Not Detected LAB MICROBIOLOGY METHOD 07/12/2024 4:29 PM [facility] Swab Structure of right anterior naris / Unknown Non-blood Collection / Unknown 07/12/2024 3:00 PM EST 07/12/2024 3:36 PM EST [facility] - 07/12/2024 4:29 PM EST Disclaimer: ??Testing was performed using the [employer] GeneXpert Xpress SARS-CoV-2 _Flu_RSV PLUS PCR assay. ??The manner in which this information is used to guide patient care is the responsibility of the healthcare provider. ??Results should be correlated with the clinical history, epidemiological data, and other data available to the clinician evaluating the patient. ??Negative results do not preclude infection. ??This test has been authorized by the FDA under an Emergency Use Authorization (EUA). ??This test is only authorized for the duration of time the declaration that circumstances exist justifying the authorization of the emergency use of in vitro diagnostic tests for detection of SARS-CoV-2 virus and/or diagnosis of COVID-19 infection under section 564 (b) (1) of the Act, 21 U.S.C 360bbb-3 (b) (1), unless the authorization is terminated or revoked sooner. ?? Reference Range: Not Detected Fact sheet for Healthcare providers can be found at https://www.fda.gov/media/828817/download. ?? Fact sheet for Healthcare patients can be found at https://www.fda.gov/media/864460/download. Patricia SNYDER LAB MICROBIOLOGY - GENERAL ORDERABLES Final Result [facility] [address] [place] [address], * (ABNORMAL) CBC auto differential (07/12/2024 3:00 PM EST) [facility] WBC 6.7 4.8 - 10.8 K/mcL LAB HEMETOLOGY METHOD 07/12/2024 3:49 PM EST [facility] RBC 3.70(L) 4.50 - 5.50 M/mcL LAB HEMETOLOGY METHOD 07/12/2024 3:49 PM [facility] Hemoglobin 11.2(L) 13.5 - 17.5 g/dL LAB HEMETOLOGY METHOD 07/12/2024 3:49 PM [facility] Hematocrit 32.9(L) 42.0 - 54.0 % LAB HEMETOLOGY METHOD 07/12/2024 3:49 PM [facility] MCV 89.4 79.0 - 98.0 FL LAB HEMETOLOGY METHOD 07/12/2024 3:49 PM [facility] MCH 30.4 27.0 - 32.0 pcg LAB HEMETOLOGY METHOD 07/12/2024 3:49 PM [facility] MCHC 34.0 32.0 - 37.0 g/dL LAB HEMETOLOGY METHOD 07/12/2024 3:49 PM [facility] RDW 12.8 11.0 - 15.0 % LAB HEMETOLOGY METHOD 07/12/2024 3:49 PM [facility] Platelets 194 130 - 400 K/mcL LAB HEMETOLOGY METHOD 07/12/2024 3:49 PM [facility] MPV 10.5 7.0 - 11.0 FL LAB HEMETOLOGY METHOD 07/12/2024 3:49 PM [facility] NRBC 0.0 <1.0 % LAB HEMETOLOGY METHOD 07/12/2024 3:49 PM [facility] NRBC Absolute 0.00 <0.10 K/mcL LAB HEMETOLOGY METHOD 07/12/2024 3:49 PM [facility] Neutrophils Relative 79.3 % LAB HEMETOLOGY METHOD 07/12/2024 3:49 PM [facility] Lymphocytes Relative 12.5 % LAB HEMETOLOGY METHOD 07/12/2024 3:49 PM [facility] Monocytes Relative 7.3 % LAB HEMETOLOGY METHOD 07/12/2024 3:49 PM [facility] Eosinophils Relative 0.4 % LAB HEMETOLOGY METHOD 07/12/2024 3:49 PM [facility] Basophils Relative 0.1 % LAB HEMETOLOGY METHOD 07/12/2024 3:49 PM [facility] Immature Granulocytes Relative 0.4 % LAB HEMETOLOGY METHOD 07/12/2024 3:49 PM [facility] Neutrophils Absolute 5.31 1.50 - 7.00 K/mcL LAB HEMETOLOGY METHOD 07/12/2024 3:49 PM [facility] Lymphocytes Absolute 0.84(L) 1.00 - 5.00 K/mcL LAB HEMETOLOGY METHOD 07/12/2024 3:49 PM [facility] Monocytes Absolute 0.49 0.20 - 1.00 K/mcL LAB HEMETOLOGY METHOD 07/12/2024 3:49 PM [facility] Eosinophils Absolute 0.03 0.00 - 0.50 K/mcL LAB HEMETOLOGY METHOD 07/12/2024 3:49 PM [facility] Basophils Absolute 0.01 0.00 - 0.20 K/[facility] LAB HEMETOLOGY METHOD 07/12/2024 3:49 PM EST [facility] Immature Granulocytes Absolute 0.03 0.00 - 0.03 K/[facility] LAB HEMETOLOGY METHOD 07/12/2024 3:49 PM EST [facility] Blood Venous blood specimen / Unknown Venipuncture / Unknown 07/12/2024 3:00 PM EST 07/12/2024 3:37 PM EST us Patricia SNYDER LAB BLOOD ORDERABLES Final Result [facility]) [facility] [address] [place] [address], [place] [phone] from Last 3 Months Insurance [facility] [employer] PLAN Advance Directives * Full Code - Default (Latest Code Status on File) Date Activated Date Inactivated Comments 07/12/2024 5:27 PM 07/13/2024 6:00 PM This is orde r is used when code status has not been discussed with the patient, or code status is otherwise unknown/unconfirmed To update the patient's code status, place a code status order. Do not modify or discontinue any currently active code status orders. Care Teams Yardage Control Operator Forming Relationship Specialty Start Date End Date Physician, Pcp Unknown PCP - General 07/12/24
== END 2024-09-20 11:37 | disposition home or self-care (01) ==
LOC: HO.HGI 10:58
PROVIDERS: PCP Internal Medicine; Visit Provider Internal Medicine
DX: C18.9 Malignant neoplasm of colon, unspecified (principal)
CPT/HCPCS: 99214

== ENCOUNTER → 2024-09-20 10:58 | Outpatient (BNVA) | payer OTHER, SELFPAY | PROVIDERS: PCP Internal Medicine; Visit Provider Internal Medicine | DX: C18.9 Malignant neoplasm of colon, unspecified (principal) | CPT/HCPCS: 99212 ==

== ENCOUNTER 2024-12-20 13:51 | Outpatient (REF) | payer OTHER, SELFPAY ==
[2024-12-20 16:09] LABS: Carcinoembryonic Antigen 3.60 ng/mL
== END 2024-12-20 13:52 | disposition home or self-care (01) ==
LOC: HO.LAB 13:51
PROVIDERS: PCP Internal Medicine; Visit Provider Surgery
DX: C18.9 Malignant neoplasm of colon, unspecified (principal); Z90.49 Acquired absence of other specified parts of digestive tract
CPT/HCPCS: 36415; 82378; 99212

== ENCOUNTER 2024-12-20 13:51 | Outpatient (AMB) | payer OTHER, SELFPAY ==
--- NOTE | 2024-12-20 13:52 | MHC.OFFVIS ---
Vital Signs 12/20/24 13:58 Height 5 ft 7 in Weight 170 lb BMI 26.6 BP 127/75 Blood Pressure Location Rt brachial Position Sitting Pulse 113 H Intake Visit Reasons: 6 months S/P sigmoid resection Intake Note: This patient presents for six month follow-up status post Hand assisted laparoscopic sigmoid resection, with end-to-end anastomosis, flexible sigmoidoscopy. Patient c/o: no concerns. 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 Florian. He said he completed this last month He feels well overall. He denies any GI complaints. PFSH Medical History Colon cancer [place] (hard of hearing) Low back pain Housing insecurity Depression Anxiety Dizziness Weakness Numbness of legs Cocaine use Smoker Daily consumption of alcohol Mild major depression Hypovitaminosis D Rash and nonspecific skin eruption Pure hypercholesterolemia Right shoulder pain Left shoulder pain Urticaria Surgical History History of colon resection Hx of colonoscopy Family History Father Prostate cancer Colon cancer Mother FH: uterine cancer Maternal Grandmother Cancer Maternal Grandfather Cancer Paternal Grandmother Cancer Paternal Grandfather Cancer Social History Household Members: Children and Other Household Members Other:: SEE NOTE Housing: Other Are you a primary wound care center consultant to a significant other at home: No Do you presently have visiting nurse or other home services: No Alcohol intake: never Patient Tobacco Use Status: Current someday Tobacco user Tobacco use type: Cigarette Years Smoked: 18 e-Cigarette/Vaping Use: Never Used Second Hand Smoke Exposure: No Substance Use Type: Crack/Cocaine service: No Current occupational status: employed Current occupational exposures/hazards: No Sexual orientation: Straight/Heterosexual Gender identity: Male Cognitive needs: No Hearing needs: No Vision needs: No Review of Systems Const Denies chills and Denies fever(s) Card Denies chest pain, Denies dyspnea and Denies dyspnea on exertion Resp Denies cough, Denies dyspnea and Denies dyspnea on exertion GI Denies hematochezia and Denies change in bowel habits Denies hematuria and Denies difficulty urinating Musc Denies back pain, Reports arthralgias and Denies limited range of motion Neuro Denies focal weakness and Denies convulsions Psych Denies depression and Denies mood swings Physical Exam Vital Signs: Last Vital Signs Pulse 113 H 12/20/24 13:58 BP 127/75 12/20/24 13:58 BMI result Body Mass Index 26.6 Const General: comfortable and no acute distress Resp Effort & Inspection: normal respiratory effort Cardio Rate: regular rate GI Other: No palpable hernia Palpation (GI): Soft to palpation, not firm, nontender and no guarding Assessment & Plan Assessment & Plan (1) Colon cancer: Code(s): C18.9 - Malignant neoplasm of colon, unspecified Category: Medical Plan: He is doing very well after sigmoid resection for a T4 N2 invasive adenocarcinoma last March,. He has good GI functions His abdominal exam is very benign I am going to order for a surveillance CEA level for him. I told him that recommend having another colonoscopy at the end of the year as part of his surveillance . I will see him again in the office in about 6 months. He also continues to see Dr. Florian of Oncology. He just completed his adjuvant chemotherapy with FOLFOX. Orders: Orders Carcinoembryonic Antigen Today C18.9 - Malignant neoplasm of colon, unspecified Medications: New naproxen 250 mg PO BID PRN 10 tabs 0RF pain Coding Level of Care Code Est Pt Level 3 (75523) Diagnoses Colon cancer C18.9
[2024-12-20 13:58] VITALS: BP 127/75; PULSE 113; BMI 26.6
--- OUTSIDE RECORDS SUMMARY | 2024-12-20 14:35 | XMS_ITS | Clinical Summary ---
Author Organization [facility] Address [address] [place] [address] Phone Care Team Providers Care It Systems Administrator Name Role Phone Physician, Pcp Unknown Primary [...] Resolved Date Acute hypoxic respiratory fa ilure ([facility] V24, [facility] V28) 07/12/2024 07/13/2024 Social History Tobacco Use Types Packs/Day Years [...] 86 07/13/2024 2:37 PM EST Temperature 37.4 C (99.4 F) 07/13/2024 2:37 PM EST Respiratory Rate 16 07/13/2024 2:37 PM EST [...] Vaccines (1 of 2) 2014 COVID-19 Vaccine (1 - 2023-2 5 season) 2024 Depression Screening 05/31/2024 Cholesterol Screening (Lipid Panel) 07/13/2024 Colorectal Cancer Screening: Colonoscopy 07/13/2024 HIV Screening 07/13/2024 Hepatitis C Screening 07/13/2024 Social Influencers of Health Screening 07/13/2024 Influenza Vaccine (#1) 2025 RSV Immunization Adult Patie nts (1 [...] on patient's age to complete this topic Insurance [facility] PL[facility] Advance Directives * Full Code - [...] currently active code status orders. Care Teams It Systems Administrator Relationship Specialty Start Date End Date Physician, Pcp Unknown PCP - General 07/12/24
== END 2024-12-20 14:12 | disposition home or self-care (01) ==
LOC: HO.HGS 13:52
PROVIDERS: PCP Internal Medicine; Visit Provider Surgery
DX: C18.9 Malignant neoplasm of colon, unspecified (principal)
CPT/HCPCS: 99213

== ENCOUNTER 2025-02-05 16:32 | Outpatient (AMB) | payer OTHER, SELFPAY ==
[2025-02-05 16:34] VITALS: BP 120/74; PULSE 108; O2SAT 96; BMI 27.8
--- NOTE | 2025-02-05 16:34 | MHC.PC.OV ---
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 Accompanied by: Self / Same As Patient Allergies No Known Allergies Allergy (Verified 02/05/25 16:48) Medication List - Last Reconciled 02/05/25 by Lauren Hansen MD acetaminophen (Tylenol Extra Strength) 500 mg PO TID PRN 90 days alum-mag hydroxide-simeth 400-400-40 mg/5 mL (Opal-Mox Antacid-[place]) 5 mL PO QID PRN dexamethasone 4 mg PO BID docusate sodium (Colace) 100 mg PO BID food supplemt, lactose-reduced (Ensure oral liquid) 1 ea PO BID hydroxyzine HCl 10 mg PO BEDTIME mirtazapine 30 mg PO BEDTIME 90 days naproxen 250 mg PO BID PRN nystatin 100,000 units PO TID ondansetron 8 mg PO Q8H PRN peg 3350-electrolytes 236-22.74-6.74 -5.86 gram (Golytely) 240 mL PO Q10M sertraline 150 mg PO DAILY Tobacco use date assessed: 02/05/25 Dental Screening Dental Screen Date: 02/05/25 Did you have a dental visit in the last 12 months?: No Did you have a dental problem in the last 6 months where you did not have access to dental care?: No Was dental information given to patient?: No HPI HPI Comments History of Present Illness Details The patient is a 59-year-old male presenting for an annual physical examination. The patient has a history of colon adenocarcinoma, diagnosed after a colonoscopy showed high-grade dysplasia of the colonic mucosa. The adenocarcinoma was moderately differentiated and invasive to the serosal surface, with metastasis to 8 out of 21 lymph nodes. He completed chemotherapy following this diagnosis. Family history includes his father, who at 82 from colon cancer, and his mother, who at 68 from uterine cancer. The patient underwent a colon resection in March and reports no current tobacco or alcohol use, though he has a history of past use. Preventative care includes a Tdap vaccination given in 2019, with the next scheduled for 2029. PENDING SALE TO [facility] Medical History (Updated 02/05/25 @ 17:00 by Lauren Hansen MD) Colon cancer [place] (hard of hearing) Low back pain Housing insecurity Depression Anxiety Dizziness Weakness Numbness of legs Cocaine use Smoker Daily consumption of alcohol Mild major depression Hypovitaminosis D Rash and nonspecific skin eruption Pure hypercholesterolemia Right shoulder pain Left shoulder pain Urticaria Surgical History History of colon resection Hx of colonoscopy Family History Father Prostate cancer Colon cancer Mother FH: uterine cancer Maternal Grandmother Cancer Maternal Grandfather Cancer Paternal Grandmother Cancer Paternal Grandfather Cancer Social History (Updated 02/05/25 @ 16:54 by Lauren Hansen MD) Household Members: Children and Other Household Members Other:: SEE NOTE Housing: Other Are you a primary lawn care worker to a significant other at home: No Do you presently have visiting nurse or other home services: No Alcohol intake: former Patient Tobacco Use Status: Former Tobacco user Tobacco use type: Cigarette Years Smoked: 18 e-Cigarette/Vaping Use: Never Used Second Hand Smoke Exposure: No Substance Use Type: Crack/Cocaine service: No Current occupational status: employed Current occupational exposures/hazards: No Sexual orientation: Straight/Heterosexual Gender identity: Male Cognitive needs: No Hearing needs: No Vision needs: No Questionnaire PHQ-9 Over the last 2 weeks, how often have you been bothered by any of the following problems? 1. Little interest or pleasure in doing things: not at all 2. Feeling down, depressed, or hopeless: not at all 3. Trouble falling or staying asleep, or sleeping too much: not at all 4. Feeling tired or having little energy: not at all 5. Poor appetite or overeating: not at all 6. Feeling bad about yourself - or that you are a failure or have let yourself or your family down: not at all 7. Trouble concentrating on things, such as reading the newspaper or watching television: not at all 8. Moving or speaking so slowly that other people could have noticed. Or the opposite - being so fidgety or restless that you have been moving around a lot more than usual: not at all 9. Thoughts that you would be better off or of hurting yourself in some way: not at all Total score: 0 Depression Screening Interpretation: Negative Depression Screening Done: Yes 91504 - PHQ-9 Billing: Yes Source: Developed by Drs. Bruce Gleason, Deepika Don, Baudilio Cruz and colleagues, with an educational katie from [employer]. Thrive Questionnaire Date Thrive assessed: 02/05/25 I am a: Patient What is your living situation today?: I choose not to answer this question Within the past 12 months, did the food you bought not last and you didn't have the money to get more?: Never true Within the past 12 months, did you worry whether your food would run out before you got money to buy more?: Never true Do you have trouble paying for medicines?: No Do you have trouble getting transportation to medical appointments?: No Do you have trouble paying your heating and electricity bill?: No Do you have trouble taking care of your child, family member or friend?: No Do you have trouble with day-to-day activities such as bathing, preparing meals, shopping, managing finances, etc.?: No Are you currently unemployed and looking for a job?: No Are you interested in more education?: No Please select the resources that you would like help with: None Currently or been in a relationship where the following occur: I choose not to answer THRIVE Score: 0 AUDIT C Alcohol Use Questionnaire (AUDIT-C) 1. How often do you have a drink containing alcohol?: Never 3. How often do you have six or more drinks on one occasion?: Never Total Score: 0 Score Reviewed/Action Taken: No MARIELA-7 AMB Questionnaire MARIELA-7 Date MARIELA - 7 assessed: 02/05/25 Feeling nervous, anxious, or on edge: 0 = Not at all Not being able to stop or control worryin = Not at all Worrying too much about different things: 0 = Not at all Trouble relaxin = Not at all Being so restless that it is hard to sit still: 0 = Not at all Becoming easily annoyed or irritable: 0 = Not at all Feeling afraid as if something awful might happen: 0 = Not at all Total MARIELA-7 score (0-4 normal; 5-9 mild; 10-14 moderate; 15-21 severe): 0 Source: Developed by Drs. Bruce Gleason, Deepika Don, Baudilio Cruz and colleagues, with an educational katie from [employer]. MARIELA-7 Assessment Billing MARIELA-7 Assessment Tool: MARIELA-7 Assessment 83932 Review of Systems Const All systems reviewed & are unremarkable except as noted in HPI and below Card Denies chest pain at rest, Denies chest pain with activity, Denies edema, Denies irregular heart rhythm, Denies claudication, Denies dyspnea, Denies dyspnea on exertion, Denies orthopnea, Denies paroxysmal nocturnal dyspnea and Denies slow heart rate Resp Denies cough, Denies dyspnea and Denies dyspnea on exertion GI Denies abdominal pain, Denies change in bowel habits, Denies excessive flatus, Denies nausea and Denies vomiting Denies urinary hesitancy, Denies urinary incontinence and Denies urinary urgency Neuro Denies behavioral changes, Denies confusion and Denies lack of coordination Psych Denies behavioral changes and Denies confusion Physical exam (Primary Care) Vital Signs: Last Vital Signs Pulse 108 H 02/05/25 16:34 BP 120/74 02/05/25 16:34 Pulse Ox 96 02/05/25 16:34 Oxygen Delivery Method Room Air 02/05/25 16:34 BMI result Body Mass Index 27.8 Tobacco/Smoking Status: Tobacco use Status Tobacco use date assessed 02/05/25 02/05/25 16:38 Patient Tobacco Use Status Current someday Tobacco 02/05/25 16:38 Tobacco use type Cigarette 02/05/25 16:38 e-Cigarette/Vaping Use Never Used 02/05/25 16:38 PHQ-9: PHQ-9 Score PHQ-9: Total score 0 02/05/25 16:38 Depression Screening Interpretation: Negative Thrive Assessment: Date of Thrive Assessment Date Thrive assessed 02/05/25 02/05/25 16:38 Currently or been in a relationship where the following occur: I choose not to answer Const General: No confusion Orientation/consciousness: patient oriented x3 and No confusion HENMT Head: Yes normal to inspection, Yes normocephalic and Yes atraumatic Ears: external ears normal Eyes General: appearance normal, both eyes and all related structures Eyelids: Yes eyelids normal Conjunctivae: conjunctivae normal Neck Neck: Yes normal visual inspection and Yes supple Resp Effort & Inspection: normal respiratory effort Auscultation: clear to auscultation bilaterally Cardio Jugular venous distension: no JVD Rate: regular rate Rhythm: regular rhythm Heart sounds: S1 normal heart sound present and S2 normal heart sound present GI Inspection: Yes normal to inspection Palpation (GI): Soft to palpation and nontender Auscultation: normal bowel sounds Skin General skin exam: no rashes or lesions noted Neuro General: patient oriented x3, no focal motor deficits and No confusion Extrem General: Yes full ROM Psych Appearance: grossly normal Coding Level of Care Code Est Pt Level 3 (32320) Est Pt Prev Care 40-64y(92092) Diagnoses Physical exam Z00.00 Colon cancer C18.9 Mild recurrent major depression F33.0 Polyarthralgia M25.50 Additional Codes PHQ-9 - 36437 - PHQ-9 Billing: Yes ([id number]) MARIELA-7 Assessment Billing - MARIELA-7 Assessment Tool: MARIELA-7 Assessment 30420 ([id number]) Time Spent (min) 32 Assessment & Plan Assessment & Plan (1) Physical exam: Code(s): Z00.00 - Encounter for general adult medical examination without abnormal findings Category: Medical (2) Colon cancer: Code(s): C18.9 - Malignant neoplasm of colon, unspecified Category: Medical (3) Mild recurrent major depression: Code(s): F33.0 - Major depressive disorder, recurrent, mild Category: Medical (4) Polyarthralgia: Code(s): M25.50 - Pain in unspecified joint Category: Medical Plan Plan Patient was informed and verbally consented to the use of an ambient scribe for clinic note documentation during this visit. 1. Encounter for general adult medical examination without abnormal findings Z00.00 The patient received a Tdap vaccination in 2019, with the next dose scheduled for 2029. 2. Malignant neoplasm of sigmoid colon C18.7 HCC 11 The patient has a history of colon adenocarcinoma, diagnosed after a colonoscopy showed high-grade dysplasia of the colonic mucosa. The adenocarcinoma was moderately differentiated and invasive to the serosal surface, with metastasis to 8 out of 21 lymph nodes. He completed chemotherapy following this diagnosis. 3. Pain in unspecified joint M25.50 Use naproxen prn. 4. Major depressive disorder, recurrent, mild F33.0 HCC 59 Continue mirtazapine. Orders: Orders Lipid Panel Today E78.5 - Hyperlipidemia, unspecified Comprehensive [place]. Panel Fast Today Z00.00 - Encounter for general adult medical examination without abnormal findings Medications: Refilled naproxen 250 mg PO BID PRN 10 tabs 0RF pain mirtazapine 30 mg PO BEDTIME 90 tabs 0RF 90 days
== END 2025-02-05 17:16 | disposition home or self-care (01) ==
LOC: HO.HMCH 16:33
PROVIDERS: PCP Internal Medicine; Visit Provider Internal Medicine
DX: Z00.00 Encounter for general adult medical examination without abnormal findings (principal); C18.9 Malignant neoplasm of colon, unspecified; F33.0 Major depressive disorder, recurrent, mild; M25.50 Pain in unspecified joint

== ENCOUNTER → 2025-02-05 16:32 | Outpatient (BNVA) | payer OTHER, SELFPAY | PROVIDERS: PCP Internal Medicine; Visit Provider Internal Medicine | DX: Z00.00 Encounter for general adult medical examination without abnormal findings (principal); C18.9 Malignant neoplasm of colon, unspecified; F33.0 Major depressive disorder, recurrent, mild; M25.50 Pain in unspecified joint; E78.5 Hyperlipidemia, unspecified | CPT/HCPCS: 96127; 99396 ==

== ENCOUNTER 2025-02-08 08:06 | Outpatient (REF) | payer OTHER, SELFPAY ==
[2025-02-08 09:10] LABS: Alanine Aminotransferase 40 U/L (0-40); Albumin Level 4.5 g/dL (3.5-5.0); Alkaline Phosphatase 76 U/L (39-117); Anion Gap 14 (12-20); Aspartate Amino Transferase 36 U/L (5-37); Blood Urea Nitrogen 16 mg/dL (9-16); Calcium 9.0 mg/dL (8.4-10.2); Carbon Dioxide 27 mmol/L (22-29); Chloride 106 mmol/L (96-108); Cholesterol 266 mg/dL (<200); Estimated Glomerular Filt Rate > 60; HDL Cholesterol 45 mg/dL (>40); Potassium 3.7 mmol/L (3.3-5.1); Sodium 143 mmol/L (135-145); Total Protein 7.2 g/dL (6.5-8.0); Triglycerides 185 mg/dL (<150)
== END 2025-02-08 08:07 | disposition home or self-care (01) ==
LOC: HO.LAB 08:06
PROVIDERS: PCP Internal Medicine; Visit Provider Internal Medicine
DX: Z00.00 Encounter for general adult medical examination without abnormal findings (principal); E78.5 Hyperlipidemia, unspecified
CPT/HCPCS: 36415; 80053; 80061